=== PATIENT | female | born 1965 | race Caucasian/White ===

== ENCOUNTER 2021-01-04 09:57 | Inpatient (IN) | payer BC ==
[2021-01-04 10:41] LABS: #Lymphocytes 1.7 thou/uL (1.20-3.40); #Monocytes 0.9 thou/uL (0.11-0.59); #Neutrophils 16.7 thou/uL (1.40-6.50); %Basophils 0.2 % (0.0-1.0); %Eosinophils 0.1 % (0.0-10.0); %Monocytes 4.4 % (0.0-10.0); %Neutrophils 86.3 % (42.0-75.0); Hemoglobin 15.3 g/dL (12.0-16.0); Mean Corpuscular HGB CONC 32.8 g/dL (32.0-36.0); Mean Corpuscular Hemoglobin 28.8 pg (27.0-31.0); Mean Corpuscular Volume 87.9 fL (78.0-98.0); Mean Platelet Volume 8.7 fL (7.4-10.4); Platelet Count 365 thou/uL (130-400); RBC Distribution Width 12.6 % (11.5-14.5); Red Blood Cell (RBC) Count 5.32 mill/uL (4.20-5.40); White Blood Cell (WBC) Count 19.3 thou/uL (4.8-10.8)
[2021-01-04] MEDS ORDERED: Ketorolac Tromethamine 30 MG/ML VIAL ONE (10:51)
[2021-01-04] MEDS ORDERED: Ondansetron PF 4 MG/2 ML Vial ONE ×3 (10:51→16:14)
[2021-01-04 11:04] LABS: ALT (SGPT) 24 U/L (8-55); AST (SGOT) 21 U/L (5-34); Albumin 4.5 g/dL (3.5-5.0); Alkaline Phosphatase 65 U/L (40-110); Anion Gap 21 mmol/L (10-20); BUN (Urea Nitrogen) 29 mg/dL (9.8-20.1); Bilirubin, Total 1.1 mg/dL (0.2-1.2); Calc. Creatinine Clearance 0 mL/min (70-130); Carbon Dioxide 19 mmol/L (22-29); Chloride 97 mmol/L (98-107); Globulin 2.9 g/dL (2.4-3.5); Glucose 279 mg/dL (70-105); Potassium 3.3 mmol/L (3.5-5.1); Protein, Total 7.4 g/dL (6.0-8.3); Sodium 134 mmol/L (136-145)
[2021-01-04 12:31] LABS: Bacteria/HPF None Seen HPF (None Seen); Bilirubin Negative (Negative); Blood, Urine 1+ (Negative); Calcium Oxalate Crystals 2+ HPF (None Seen); Clarity Turbid (Clear); Glucose, Urine (Dipstick) 50 mg/dL (Negative); Ketone, Urine Negative (Negative); Leukocyte Negative Leu/uL (Negative); Nitrite Negative (Negative); Protein, Urine (Dipstick) 50 mg/dL (Neg-Trace); RBC/HPF 21-50 HPF (0-3); Specific Gravity, Urine 1.025 (1.002-1.036); Urobilinogen Normal mg/dL (Less than 2); WBC/HPF 21-50 HPF (0-3); pH, Urine 5.5 (5.0-9.0)
[2021-01-04] MEDS ORDERED: Piperacillin/Tazobactam 4.5 GM VIAL ONE (12:39)
[2021-01-04] MEDS ORDERED: Morphine 4 MG/ML VIAL ONE (12:39)
[2021-01-04 14:05] LABS: SARS-CoV-2 NAA Rapid Test Not Detected (NotDetected)
[2021-01-04] MEDS ORDERED: Fentanyl 100 MCG/2 ML VIAL ONE ×2 (14:52→18:40)
[2021-01-04] MEDS ORDERED: Albumin 5% 0 ML ONE (14:59)
[2021-01-04 15:28] LABS: Band 32 % (5-11); Hemoglobin 11.7 g/dL (12.0-16.0); Lymphocytes 8 % (21-51); MDiff Complete? YES; Mean Corpuscular HGB CONC 33.6 g/dL (32.0-36.0); Mean Corpuscular Hemoglobin 29.5 pg (27.0-31.0); Mean Corpuscular Volume 87.8 fL (78.0-98.0); Mean Platelet Volume 8.6 fL (7.4-10.4); Monocytes 9 % (0-10); Neutrophil 49 % (42-75); Platelet Count 263 thou/uL (130-400); Platelet Morphology Comment Appears Adequate; RBC Distribution Width 12.5 % (11.5-14.5); RBC Morphology Normal; Reactive Lymphocytes 2 % (0-10); Red Blood Cell (RBC) Count 3.98 mill/uL (4.20-5.40); White Blood Cell (WBC) Count 22.2 thou/uL (4.8-10.8)
[2021-01-04] MEDS ORDERED: Fentanyl 250 MCG/5 ML VIAL ONE (15:35)
[2021-01-04] MEDS ORDERED: Phenylephrine 10 MG/ML VIAL ONE (15:36)
[2021-01-04 15:39] LABS: Actual Bicarbonate (HCO3a) 20.2 mEq/L (22-28); Base Excess (BEa) -5.8 mEq/L (-2.0 to +3.0); CO2 Tension 41.4 mmHg (35.0-45.0); Calcium, Ionized (arterial) 1.07 mmol/L (1.12-1.30); Carboxyhemoglobin (COHb) 0.3 gm% (0.0-3.0); Hemoglobin (Hb) 10.5 g/dL (12.0-16.0); O2 Tension (PaO2), arterial 88.9 mmHg (80.0-100.0); pH, Arterial 7.31 (7.35-7.45)
[2021-01-04 15:40] LABS: Puncture Site LRA
[2021-01-04] MEDS ORDERED: Bupivacaine 0.25% HCL 30 ML VIAL ONE (16:00)
[2021-01-04] MEDS ORDERED: Sodium Chloride 0.9% 10 ML ONE ×2 (16:00→19:20)
[2021-01-04] MEDS ORDERED: Lidocaine 1% w/Epinephrine 1:100K 30 ML VIAL ONE (16:00)
[2021-01-04] MEDS ORDERED: Calcium Chloride 1 GM/10 ML Abboject SYRINGE ONE (16:14)
[2021-01-04] MEDS ORDERED: Rocuronium Bromide 10 MG/ML (10ML VIAL) ONE (16:14)
[2021-01-04] MEDS ORDERED: PHENYLEPHRINE-NS 100 MCG/ML 10 ML SYRINGE ONE (16:14)
[2021-01-04] MEDS ORDERED: Lidocaine 1% PF 5 ML VIAL ONE (16:14)
[2021-01-04] MEDS ORDERED: PROPOFOL 200 MG/20 ML VIAL ONE (16:14)
[2021-01-04] MEDS ORDERED: Succinylcholine 200 MG/10 ml SYRINGE FS ONE (16:14)
[2021-01-04] MEDS ORDERED: Dexamethasone 20 MG/5 ML VIAL ONE (16:14)
[2021-01-04] MEDS ORDERED: Sodium Bicarbonate 2.5 MEQ/5 ML VIAL ONE (16:47)
[2021-01-04] MEDS ORDERED: Albumin 5% 500 ML ONE (16:47)
[2021-01-04] MEDS ORDERED: Sodium Bicarb 50 MEQ/50 ML Abboject 8.4% SYRINGE ONE ×2 (16:50→17:13)
[2021-01-04] MEDS ORDERED: Midazolam HCl 2 mg/2 ml Vial ONE (17:32)
[2021-01-04] MEDS ORDERED: Propofol 1,000 MG/100 ML VIAL IV ONE (17:44)
[2021-01-04] MEDS ORDERED: Morphine 2 MG/ML VIAL SLOW IVP PRN ×2 (17:59→18:45)
[2021-01-04] MEDS ORDERED: Dextrose 5% in Water 1,000 ML IV PRN (17:59)
[2021-01-04] MEDS ORDERED: Morphine 4 MG/ML VIAL SLOW IVP PRN (17:59)
[2021-01-04] MEDS ORDERED: Dextrose 50% Abboject 50 ML SYRINGE SLOW IVP PRN (17:59)
[2021-01-04] MEDS ORDERED: Ventilator Sedation Protocol 1 EACH FS SCH (18:15)
[2021-01-04] MEDS ORDERED: Albumin 5% 250 ML ONE (18:39)
[2021-01-04] MEDS ORDERED: Fentanyl BOLUS 250 ML IVPB PRN (18:45)
[2021-01-04] MEDS ORDERED: Propofol BOLUS 1,000 MG/100 ML VIAL IV PRN (18:45)
[2021-01-04] MEDS ORDERED: Propofol 1,000 MG/100 ML VIAL IV PRN (18:45)
[2021-01-04] MEDS ORDERED: DISCONTINUE PREVIOUS NARCOTIC PAIN MEDICATIONS AND BENZODIAZEPINES FS SCH (18:45)
[2021-01-04] MEDS ORDERED: Sodium Chloride 0.9% 1,000 ML IV SCH (19:00)
[2021-01-04] MEDS ORDERED: Norepinephrine 8 MG/0.9% NS 250 ML IVPB SCH (19:00)
[2021-01-04] MEDS: Fentanyl CADD 100 ML IV SCH (19:18)
[2021-01-04 19:20] LABS: Mean Corpuscular Hemoglobin 30.2 pg (27.0-31.0); Mean Corpuscular Volume 88.6 fL (78.0-98.0); Mean Platelet Volume 8.7 fL (7.4-10.4); Platelet Count 190 thou/uL (130-400); RBC Distribution Width 12.6 % (11.5-14.5); Red Blood Cell (RBC) Count 2.97 mill/uL (4.20-5.40); White Blood Cell (WBC) Count 15.4 thou/uL (4.8-10.8)
[2021-01-04 19:36] LABS: Actual Bicarbonate (HCO3a) 18.9 mEq/L (22-28); Base Excess (BEa) -5.3 mEq/L (-2.0 to +3.0); CO2 Tension 32.6 mmHg (35.0-45.0); Calcium, Ionized (arterial) 1.09 mmol/L (1.12-1.30); Carboxyhemoglobin (COHb) 0.3 gm% (0.0-3.0); Hemoglobin (Hb) 10.7 g/dL (12.0-16.0); O2 Tension (PaO2), arterial 227.4 mmHg (80.0-100.0); Potassium - ABG Lab 3.98 mmol/L (3.70-5.30); pH, Arterial 7.38 (7.35-7.45)
[2021-01-04 19:42] LABS: Puncture Site Arterial Line
[2021-01-04 19:44] LABS: Band 51 % (5-11); Lymphocytes 10 % (21-51); MDiff Complete? YES; Metamyelocyte 2 % (0-0); Monocytes 3 % (0-10); Neutrophil 31 % (42-75); Platelet Morphology Comment Appears Adequate; Polychromasia SLIGHT = 2-3 cells (100X) (0-2/hpf); Reactive Lymphocytes 3 % (0-10)
[2021-01-04 19:50] LABS: Anion Gap 15 mmol/L (10-20); BUN (Urea Nitrogen) 23 mg/dL (9.8-20.1); Calc. Creatinine Clearance 81 mL/min (70-130); Calcium 7.7 mg/dL (7.8-10.44); Carbon Dioxide 18 mmol/L (22-29); Chloride 111 mmol/L (98-107); Glucose 136 mg/dL (70-105); Magnesium 1.2 mg/dL (1.6-2.6); Sodium 140 mmol/L (136-145)
[2021-01-04] MEDS: Lactated Ringer's 1,000 ML IV SCH ×2 (20:13→23:39)
[2021-01-04] MEDS ORDERED: Lorazepam 2 MG/ML VIAL ONE (20:48)
[2021-01-04] MEDS: Lorazepam 2 MG/ML VIAL SLOW IVP PRN (20:49)
[2021-01-04] MEDS: Piperacillin/Tazobactam 3.375 GM in Sodium Chloride 0.9% 100 ML IVPB SCH (21:56)
[2021-01-04] MEDS: Enoxaparin Sodium 40 MG/0.4 ML SYRINGE SC SCH (21:57)
[2021-01-04] MEDS: Albumin 25% 25 GM/100 ML BOT IVPB SCH (23:39)
[2021-01-04 23:48] LABS: Band 28 % (5-11); Lymphocytes 17 % (21-51); MDiff Complete? YES; Mean Corpuscular HGB CONC 35.2 g/dL (32.0-36.0); Mean Corpuscular Hemoglobin 31.3 pg (27.0-31.0); Mean Corpuscular Volume 88.7 fL (78.0-98.0); Mean Platelet Volume 8.8 fL (7.4-10.4); Monocytes 2 % (0-10); Neutrophil 45 % (42-75); Platelet Count 162 thou/uL (130-400); Platelet Morphology Comment Appears Adequate; RBC Distribution Width 13.1 % (11.5-14.5); RBC Morphology Normal; Reactive Lymphocytes 8 % (0-10); Red Blood Cell (RBC) Count 4.47 mill/uL (4.20-5.40); White Blood Cell (WBC) Count 16.6 thou/uL (4.8-10.8)
[2021-01-04] MEDS ORDERED: Albumin 25% 25 GM/100 ML BOT IVPB SCH (23:59)
[2021-01-05] MEDS ORDERED: Lorazepam 2 MG/ML VIAL ONE ×5 (01:36→18:33)
[2021-01-05] MEDS: Lorazepam 2 MG/ML VIAL SLOW IVP PRN ×6 (01:37→21:59)
[2021-01-05] MEDS ORDERED: Sodium Chloride 0.9% 30 ML ONE (03:18)
[2021-01-05] MEDS: Lactated Ringer's 1,000 ML IV SCH ×5 (03:30→23:04)
[2021-01-05] MEDS: Piperacillin/Tazobactam 3.375 GM in Sodium Chloride 0.9% 100 ML IVPB SCH ×3 (03:31→20:13)
[2021-01-05 03:48] LABS: Hemoglobin 13.1 g/dL (12.0-16.0); Mean Corpuscular HGB CONC 35.1 g/dL (32.0-36.0); Mean Corpuscular Volume 88.3 fL (78.0-98.0); Platelet Count 133 thou/uL (130-400); RBC Distribution Width 13.3 % (11.5-14.5); Red Blood Cell (RBC) Count 4.23 mill/uL (4.20-5.40); White Blood Cell (WBC) Count 13.9 thou/uL (4.8-10.8)
[2021-01-05 04:06] LABS: Band 32 % (5-11); Lymphocytes 24 % (21-51); MDiff Complete? YES; Neutrophil 41 % (42-75); Platelet Morphology Comment Appears Adequate; RBC Morphology Normal; Reactive Lymphocytes 3 % (0-10)
[2021-01-05 04:07] LABS: Anion Gap 11 mmol/L (10-20); BUN (Urea Nitrogen) 29 mg/dL (9.8-20.1); Calc. Creatinine Clearance 64 mL/min (70-130); Calcium 8.2 mg/dL (7.8-10.44); Carbon Dioxide 24 mmol/L (22-29); Chloride 109 mmol/L (98-107); Glucose 135 mg/dL (70-105); Magnesium 1.4 mg/dL (1.6-2.6); Potassium 4.2 mmol/L (3.5-5.1); Sodium 140 mmol/L (136-145)
[2021-01-05] MEDS: Albumin 25% 25 GM/100 ML BOT IVPB SCH ×3 (05:52→17:29)
[2021-01-05 06:50] LABS: Actual Bicarbonate (HCO3a) 21.6 mEq/L (22-28); Base Excess (BEa) -1.5 mEq/L (-2.0 to +3.0); CO2 Tension 31.4 mmHg (35.0-45.0); Calcium, Ionized (arterial) 1.08 mmol/L (1.12-1.30); Carboxyhemoglobin (COHb) 0.3 gm% (0.0-3.0); Hemoglobin (Hb) 12.9 g/dL (12.0-16.0); O2 Tension (PaO2), arterial 156.9 mmHg (80.0-100.0); Potassium - ABG Lab 4.02 mmol/L (3.70-5.30); pH, Arterial 7.46 (7.35-7.45)
[2021-01-05 06:51] LABS: Puncture Site Arterial Line
[2021-01-05] MEDS ORDERED: Magnesium Sulfate 3 GM in Sodium Chloride 0.9% 100 ML IVPB SCH (08:00)
[2021-01-05] MEDS: Fentanyl CADD 100 ML IV SCH ×2 (09:57→22:13)
[2021-01-05] MEDS ORDERED: Piperacillin/Tazobactam 3.375 GM VIAL ONE (11:44)
[2021-01-05] MEDS ORDERED: Sodium Chloride 0.9% 100 ML ONE (11:46)
[2021-01-05 16:25] LABS: Hemoglobin 11.7 g/dL (12.0-16.0); Mean Corpuscular HGB CONC 34.7 g/dL (32.0-36.0); Mean Corpuscular Hemoglobin 30.5 pg (27.0-31.0); Mean Corpuscular Volume 87.8 fL (78.0-98.0); Platelet Count 124 thou/uL (130-400); RBC Distribution Width 13.4 % (11.5-14.5); Red Blood Cell (RBC) Count 3.85 mill/uL (4.20-5.40); White Blood Cell (WBC) Count 7.9 thou/uL (4.8-10.8)
[2021-01-05 16:44] LABS: Anion Gap 12 mmol/L (10-20); BUN (Urea Nitrogen) 32 mg/dL (9.8-20.1); Calc. Creatinine Clearance 75 mL/min (70-130); Carbon Dioxide 22 mmol/L (22-29); Chloride 108 mmol/L (98-107); Glucose 125 mg/dL (70-105); Magnesium 2.2 mg/dL (1.6-2.6); Potassium 3.7 mmol/L (3.5-5.1); Sodium 138 mmol/L (136-145)
[2021-01-05 16:45] LABS: Band 58 % (5-11); Lymphocytes 24 % (21-51); MDiff Complete? YES; Metamyelocyte 2 % (0-0); Monocytes 7 % (0-10); Neutrophil 5 % (42-75); Platelet Morphology Comment Appears Decreased; Polychromasia SLIGHT = 2-3 cells (100X) (0-2/hpf); Reactive Lymphocytes 4 % (0-10)
[2021-01-05] MEDS: Enoxaparin Sodium 40 MG/0.4 ML SYRINGE SC SCH (20:15)
[2021-01-05] MEDS ORDERED: Fentanyl CADD 100 ML ONE (22:11)
[2021-01-05] MEDS ORDERED: Lactated Ringer's 1,000 ML IV SCH (23:00)
[2021-01-06] MEDS: Albumin 25% 25 GM/100 ML BOT IVPB SCH ×3 (00:37→17:22)
[2021-01-06] MEDS: Piperacillin/Tazobactam 3.375 GM in Sodium Chloride 0.9% 100 ML IVPB SCH ×3 (03:55→20:49)
[2021-01-06 04:39] LABS: Anion Gap 12 mmol/L (10-20); BUN (Urea Nitrogen) 26 mg/dL (9.8-20.1); Calc. Creatinine Clearance 84 mL/min (70-130); Carbon Dioxide 25 mmol/L (22-29); Chloride 108 mmol/L (98-107); Glucose 111 mg/dL (70-105); Magnesium 2.1 mg/dL (1.6-2.6); Potassium 3.9 mmol/L (3.5-5.1); Sodium 141 mmol/L (136-145)
[2021-01-06] MEDS: Lactated Ringer's 1,000 ML IV SCH ×3 (04:47→17:21)
[2021-01-06 05:02] LABS: Hemoglobin 9.8 g/dL (12.0-16.0); Mean Corpuscular HGB CONC 34.2 g/dL (32.0-36.0); Mean Corpuscular Hemoglobin 30.3 pg (27.0-31.0); Mean Corpuscular Volume 88.7 fL (78.0-98.0); Mean Platelet Volume 9.1 fL (7.4-10.4); Platelet Count 116 thou/uL (130-400); RBC Distribution Width 13.5 % (11.5-14.5); Red Blood Cell (RBC) Count 3.22 mill/uL (4.20-5.40)
[2021-01-06 06:29] LABS: Band 51 % (5-11); Eosinophils 1 % (0-10); Lymphocytes 25 % (21-51); MDiff Complete? YES; Metamyelocyte 15 % (0-0); Monocytes 5 % (0-10); Neutrophil 2 % (42-75); Platelet Morphology Comment Appears Decreased; Reactive Lymphocytes 1 % (0-10)
[2021-01-06] MEDS: Lorazepam 2 MG/ML VIAL SLOW IVP PRN ×5 (07:30→22:21)
[2021-01-06] MEDS ORDERED: Fentanyl CADD 100 ML ONE ×2 (10:05→22:05)
[2021-01-06] MEDS: Fentanyl CADD 100 ML IV SCH ×2 (10:20→22:23)
[2021-01-06] MEDS ORDERED: Propofol 500 MG/50 ML VIAL ONE (11:36)
[2021-01-06] MEDS ORDERED: Fentanyl 250 MCG/5 ML VIAL ONE (11:36)
[2021-01-06] MEDS ORDERED: Midazolam HCl 2 mg/2 ml Vial ONE (11:36)
[2021-01-06] MEDS ORDERED: PROPOFOL 200 MG/20 ML VIAL ONE (12:27)
[2021-01-06] MEDS ORDERED: Rocuronium Bromide 10 MG/ML (10ML VIAL) ONE (12:27)
[2021-01-06] MEDS ORDERED: PHENYLEPHRINE-NS 100 MCG/ML 10 ML SYRINGE ONE (12:27)
[2021-01-06] MEDS ORDERED: Dextrose 5% in Water 1,000 ML IV PRN (16:37)
[2021-01-06] MEDS ORDERED: Dextrose 50% Abboject 50 ML SYRINGE SLOW IVP PRN (16:37)
[2021-01-06] MEDS ORDERED: Furosemide 40 MG/4 ML VIAL SLOW IVP SCH (18:00)
[2021-01-06] MEDS: Enoxaparin Sodium 40 MG/0.4 ML SYRINGE SC SCH (20:49)
[2021-01-06] MEDS: HUMULIN R IV SCH (21:57)
[2021-01-06] MEDS: MULTIVITAMINS IV SCH (21:57)
[2021-01-06] MEDS: [UNRECOGNIZED DRUG - OTHER] IV SCH (21:57)
[2021-01-06] MEDS: TRACE ELEMENT IV SCH (21:57)
[2021-01-07] MEDS: Albumin 25% 25 GM/100 ML BOT IVPB SCH ×3 (00:14→11:47)
[2021-01-07] MEDS: Lorazepam 2 MG/ML VIAL SLOW IVP PRN ×2 (00:30→07:18)
[2021-01-07] MEDS: Lactated Ringer's 1,000 ML IV SCH ×4 (03:11→21:17)
[2021-01-07] MEDS: Piperacillin/Tazobactam 3.375 GM in Sodium Chloride 0.9% 100 ML IVPB SCH ×3 (04:11→19:39)
[2021-01-07 05:05] LABS: Hemoglobin 8.6 g/dL (12.0-16.0); Mean Corpuscular HGB CONC 33.6 g/dL (32.0-36.0); Mean Corpuscular Hemoglobin 30.2 pg (27.0-31.0); Mean Platelet Volume 9.1 fL (7.4-10.4); Platelet Count 146 thou/uL (130-400); RBC Distribution Width 13.6 % (11.5-14.5); Red Blood Cell (RBC) Count 2.86 mill/uL (4.20-5.40); White Blood Cell (WBC) Count 6.6 thou/uL (4.8-10.8)
[2021-01-07 05:17] LABS: Anion Gap 10 mmol/L (10-20); BUN (Urea Nitrogen) 29 mg/dL (9.8-20.1); Calc. Creatinine Clearance 77 mL/min (70-130); Carbon Dioxide 31 mmol/L (22-29); Chloride 105 mmol/L (98-107); Glucose 148 mg/dL (70-105); Potassium 3.5 mmol/L (3.5-5.1); Sodium 142 mmol/L (136-145)
[2021-01-07 05:28] LABS: Band 45 % (5-11); Eosinophils 1 % (0-10); Lymphocytes 30 % (21-51); MDiff Complete? YES; Monocytes 13 % (0-10); Neutrophil 11 % (42-75); Platelet Morphology Comment Appears Adequate; RBC Morphology Normal
[2021-01-07] MEDS: Furosemide 40 MG/4 ML VIAL SLOW IVP SCH ×2 (06:00→13:36)
[2021-01-07] MEDS ORDERED: Fentanyl CADD 100 ML ONE ×2 (10:16→21:59)
[2021-01-07] MEDS: Fentanyl CADD 100 ML IV SCH ×2 (10:19→22:02)
[2021-01-07] MEDS: HumaLOG 300 UNITS/3 ML VIAL SC PRN ×2 (13:13→17:54)
[2021-01-07 18:39] LABS: Anion Gap 13 mmol/L (10-20); BUN (Urea Nitrogen) 36 mg/dL (9.8-20.1); Calc. Creatinine Clearance 82 mL/min (70-130); Calcium 8.1 mg/dL (7.8-10.44); Carbon Dioxide 30 mmol/L (22-29); Chloride 103 mmol/L (98-107); Glucose 160 mg/dL (70-105); Sodium 143 mmol/L (136-145)
[2021-01-07 18:44] LABS: Potassium 2.8 mmol/L (3.5-5.1)
[2021-01-07] MEDS ORDERED: Potassium Chloride 40 MEQ in Premix Bag 1 BAG IVPB SCH ×2 (19:15→22:00)
[2021-01-07] MEDS ORDERED: Potassium Chloride 20 MEQ in Premix Bag 1 BAG IVPB SCH (19:15)
[2021-01-07] MEDS: Potassium Chloride 40 MEQ in Premix Bag 1 BAG IVPB SCH ×2 (19:39→22:17)
[2021-01-07] MEDS: Enoxaparin Sodium 40 MG/0.4 ML SYRINGE SC SCH (20:55)
[2021-01-07] MEDS ORDERED: Furosemide 40 MG/4 ML VIAL SLOW IVP SCH (22:00)
[2021-01-07] MEDS: HUMULIN R IV SCH (22:16)
[2021-01-07] MEDS: TRACE ELEMENT IV SCH (22:16)
[2021-01-07] MEDS: [UNRECOGNIZED DRUG - OTHER] IV SCH (22:16)
[2021-01-07] MEDS: MULTIVITAMINS IV SCH (22:16)
[2021-01-08] MEDS: Piperacillin/Tazobactam 3.375 GM in Sodium Chloride 0.9% 100 ML IVPB SCH ×3 (04:20→21:36)
[2021-01-08] MEDS: Lactated Ringer's 1,000 ML IV SCH ×4 (04:20→22:55)
[2021-01-08] MEDS: HumaLOG 300 UNITS/3 ML VIAL SC PRN ×3 (04:26→21:48)
[2021-01-08 04:59] LABS: Hemoglobin 9.3 g/dL (12.0-16.0); Mean Corpuscular HGB CONC 32.4 g/dL (32.0-36.0); Mean Corpuscular Hemoglobin 29.5 pg (27.0-31.0); Mean Corpuscular Volume 90.9 fL (78.0-98.0); Mean Platelet Volume 8.4 fL (7.4-10.4); Platelet Count 174 thou/uL (130-400); RBC Distribution Width 13.9 % (11.5-14.5); Red Blood Cell (RBC) Count 3.15 mill/uL (4.20-5.40); White Blood Cell (WBC) Count 7.3 thou/uL (4.8-10.8)
[2021-01-08 05:13] LABS: ALT (SGPT) 22 U/L (8-55); AST (SGOT) 34 U/L (5-34); Albumin 3.1 g/dL (3.5-5.0); Alkaline Phosphatase 36 U/L (40-110); Anion Gap 12 mmol/L (10-20); BUN (Urea Nitrogen) 41 mg/dL (9.8-20.1); Bilirubin, Total 5.5 mg/dL (0.2-1.2); Calc. Creatinine Clearance 84 mL/min (70-130); Calcium 8.1 mg/dL (7.8-10.44); Carbon Dioxide 31 mmol/L (22-29); Chloride 105 mmol/L (98-107); Globulin 1.2 g/dL (2.4-3.5); Glucose 168 mg/dL (70-105); Potassium 3.7 mmol/L (3.5-5.1); Protein, Total 4.3 g/dL (6.0-8.3); Sodium 144 mmol/L (136-145)
[2021-01-08 05:33] LABS: Phosphorus 1.2 mg/dL (2.3-4.7)
[2021-01-08 06:17] LABS: MDiff Complete? YES
[2021-01-08 06:18] LABS: Band 21 % (5-11); Eosinophils 3 % (0-10); Lymphocytes 17 % (21-51); Metamyelocyte 6 % (0-0); Monocytes 5 % (0-10); Neutrophil 48 % (42-75); Platelet Morphology Comment Appears Adequate; RBC Morphology Normal
[2021-01-08] MEDS: Furosemide 40 MG/4 ML VIAL SLOW IVP SCH ×2 (06:22→20:20)
[2021-01-08] MEDS ORDERED: Fentanyl CADD 100 ML ONE ×2 (08:55→22:17)
[2021-01-08] MEDS: Fentanyl CADD 100 ML IV SCH ×2 (09:00→22:20)
[2021-01-08] MEDS: Lorazepam 2 MG/ML VIAL SLOW IVP PRN (09:16)
[2021-01-08] MEDS ORDERED: Midazolam HCl 2 mg/2 ml Vial ONE (17:05)
[2021-01-08] MEDS ORDERED: Fentanyl 100 MCG/2 ML VIAL ONE (17:05)
[2021-01-08] MEDS ORDERED: Neomycin-Polymyxin 1 ML AMP ONE (17:27)
[2021-01-08] MEDS ORDERED: PHENYLEPHRINE-NS 100 MCG/ML 10 ML SYRINGE ONE (17:30)
[2021-01-08] MEDS ORDERED: PROPOFOL 200 MG/20 ML VIAL ONE (17:30)
[2021-01-08] MEDS ORDERED: Rocuronium Bromide 10 MG/ML (10ML VIAL) ONE (17:30)
[2021-01-08] MEDS: Enoxaparin Sodium 40 MG/0.4 ML SYRINGE SC SCH (21:36)
[2021-01-08] MEDS: TRACE ELEMENT IV SCH (22:32)
[2021-01-08] MEDS: MULTIVITAMINS IV SCH (22:32)
[2021-01-08] MEDS: HUMULIN R IV SCH (22:32)
[2021-01-08] MEDS: [UNRECOGNIZED DRUG - OTHER] IV SCH (22:32)
[2021-01-09] MEDS: Piperacillin/Tazobactam 3.375 GM in Sodium Chloride 0.9% 100 ML IVPB SCH ×3 (07:24→21:08)
[2021-01-09] MEDS: Lactated Ringer's 1,000 ML IV SCH ×3 (07:24→19:17)
[2021-01-09] MEDS: Furosemide 40 MG/4 ML VIAL SLOW IVP SCH ×2 (07:25→13:54)
[2021-01-09 07:54] LABS: Actual Bicarbonate (HCO3a) 29.7 mEq/L (22-28); Base Excess (BEa) 6.6 mEq/L (-2.0 to +3.0); Calcium, Ionized (arterial) 1.02 mmol/L (1.12-1.30); Carboxyhemoglobin (COHb) 0.3 gm% (0.0-3.0); Hemoglobin (Hb) 10.1 g/dL (12.0-16.0); O2 Tension (PaO2), arterial 117.4 mmHg (80.0-100.0); Potassium - ABG Lab 3.32 mmol/L (3.70-5.30); pH, Arterial 7.52 (7.35-7.45)
[2021-01-09 07:59] LABS: Puncture Site Arterial Line
[2021-01-09] MEDS ORDERED: Fentanyl CADD 100 ML ONE (10:23)
[2021-01-09] MEDS: Fentanyl CADD 100 ML IV SCH (10:28)
[2021-01-09] MEDS ORDERED: Piperacillin/Tazobactam 3.375 GM VIAL ONE (10:37)
[2021-01-09] MEDS: Lorazepam 2 MG/ML VIAL SLOW IVP PRN ×2 (11:00→17:23)
[2021-01-09 15:51] LABS: Hemoglobin 10.2 g/dL (12.0-16.0); Mean Corpuscular HGB CONC 33.2 g/dL (32.0-36.0); Mean Corpuscular Hemoglobin 30.2 pg (27.0-31.0); Mean Platelet Volume 9.5 fL (7.4-10.4); Platelet Count 214 thou/uL (130-400); RBC Distribution Width 14.3 % (11.5-14.5); Red Blood Cell (RBC) Count 3.38 mill/uL (4.20-5.40); White Blood Cell (WBC) Count 14.2 thou/uL (4.8-10.8)
[2021-01-09 16:09] LABS: Band 46 % (5-11); Eosinophils 1 % (0-10); Lymphocytes 14 % (21-51); MDiff Complete? YES; Metamyelocyte 3 % (0-0); Monocytes 9 % (0-10); Myelocyte 5 % (0-0); Neutrophil 20 % (42-75); Platelet Morphology Comment Appears Adequate; Polychromasia SLIGHT = 2-3 cells (100X) (0-2/hpf); Reactive Lymphocytes 2 % (0-10)
[2021-01-09 16:31] LABS: ALT (SGPT) 32 U/L (8-55); AST (SGOT) 38 U/L (5-34); Albumin 2.6 g/dL (3.5-5.0); Alkaline Phosphatase 51 U/L (40-110); Anion Gap 13 mmol/L (10-20); BUN (Urea Nitrogen) 55 mg/dL (9.8-20.1); Bilirubin, Total 3.6 mg/dL (0.2-1.2); Calc. Creatinine Clearance 66 mL/min (70-130); Calcium 7.8 mg/dL (7.8-10.44); Carbon Dioxide 31 mmol/L (22-29); Chloride 99 mmol/L (98-107); Globulin 1.6 g/dL (2.4-3.5); Glucose 158 mg/dL (70-105); Magnesium 1.8 mg/dL (1.6-2.6); Potassium 3.3 mmol/L (3.5-5.1); Protein, Total 4.2 g/dL (6.0-8.3); Sodium 140 mmol/L (136-145)
[2021-01-09 17:04] LABS: Phosphorus 3.1 mg/dL (2.3-4.7)
[2021-01-09] MEDS: Enoxaparin Sodium 40 MG/0.4 ML SYRINGE SC SCH (21:20)
[2021-01-09] MEDS: Multivitamins, Adult 10 ML, TRACE ELEMENT CONCENTRATE 1 ML in D15W-AA 5% with Lytes 2,0... IV SCH (21:59)
[2021-01-10] MEDS: Lactated Ringer's 1,000 ML IV SCH ×4 (01:04→20:38)
[2021-01-10] MEDS: Piperacillin/Tazobactam 3.375 GM in Sodium Chloride 0.9% 100 ML IVPB SCH ×3 (03:09→20:52)
[2021-01-10 04:18] LABS: ALT (SGPT) 33 U/L (8-55); AST (SGOT) 43 U/L (5-34); Albumin 2.4 g/dL (3.5-5.0); Alkaline Phosphatase 54 U/L (40-110); Anion Gap 14 mmol/L (10-20); BUN (Urea Nitrogen) 56 mg/dL (9.8-20.1); Bilirubin, Total 3.6 mg/dL (0.2-1.2); Calc. Creatinine Clearance 78 mL/min (70-130); Calcium 7.7 mg/dL (7.8-10.44); Carbon Dioxide 29 mmol/L (22-29); Chloride 100 mmol/L (98-107); Globulin 1.9 g/dL (2.4-3.5); Glucose 159 mg/dL (70-105); Magnesium 1.9 mg/dL (1.6-2.6); Phosphorus 3.4 mg/dL (2.3-4.7); Potassium 3.6 mmol/L (3.5-5.1); Protein, Total 4.3 g/dL (6.0-8.3); Sodium 139 mmol/L (136-145)
[2021-01-10] MEDS: Furosemide 40 MG/4 ML VIAL SLOW IVP SCH ×2 (04:59→13:45)
[2021-01-10 05:26] LABS: Band 40 % (5-11); Hemoglobin 9.9 g/dL (12.0-16.0); Lymphocytes 12 % (21-51); MDiff Complete? YES; Mean Corpuscular HGB CONC 34.5 g/dL (32.0-36.0); Mean Corpuscular Hemoglobin 31.2 pg (27.0-31.0); Mean Corpuscular Volume 90.4 fL (78.0-98.0); Mean Platelet Volume 9.8 fL (7.4-10.4); Metamyelocyte 5 % (0-0); Monocytes 8 % (0-10); Myelocyte 3 % (0-0); Neutrophil 30 % (42-75); Platelet Count 207 thou/uL (130-400); Platelet Morphology Comment Appears Adequate; Polychromasia SLIGHT = 2-3 cells (100X) (0-2/hpf); RBC Distribution Width 14.3 % (11.5-14.5); Reactive Lymphocytes 2 % (0-10); Red Blood Cell (RBC) Count 3.17 mill/uL (4.20-5.40); Toxic Granulation SLIGHT; White Blood Cell (WBC) Count 15.3 thou/uL (4.8-10.8)
[2021-01-10 07:57] LABS: Actual Bicarbonate (HCO3a) 31.7 mEq/L (22-28); Base Excess (BEa) 9.2 mEq/L (-2.0 to +3.0); CO2 Tension 35.5 mmHg (35.0-45.0); Calcium, Ionized (arterial) 1.02 mmol/L (1.12-1.30); Carboxyhemoglobin (COHb) 0.3 gm% (0.0-3.0); Hemoglobin (Hb) 10.4 g/dL (12.0-16.0); O2 Tension (PaO2), arterial 105.7 mmHg (80.0-100.0); Potassium - ABG Lab 3.18 mmol/L (3.70-5.30)
[2021-01-10 08:11] LABS: Puncture Site Arterial Line; pH, Arterial 7.57 (7.35-7.45)
[2021-01-10 08:12] LABS: ALV-art Gradient 135.125 mmHg (0-20)
[2021-01-10] MEDS: HumaLOG 300 UNITS/3 ML VIAL SC PRN ×2 (09:27→16:04)
[2021-01-10] MEDS: Lorazepam 2 MG/ML VIAL SLOW IVP PRN (11:00)
[2021-01-10] MEDS: Enoxaparin Sodium 40 MG/0.4 ML SYRINGE SC SCH (20:52)
[2021-01-10] MEDS: Multivitamins, Adult 10 ML, TRACE ELEMENT CONCENTRATE 1 ML in D15W-AA 5% with Lytes 2,0... IV SCH (21:53)
[2021-01-11] MEDS: Lactated Ringer's 1,000 ML IV SCH ×3 (03:20→19:12)
[2021-01-11 04:20] LABS: ALT (SGPT) 45 U/L (8-55); AST (SGOT) 42 U/L (5-34); Albumin 2.7 g/dL (3.5-5.0); Alkaline Phosphatase 71 U/L (40-110); Anion Gap 13 mmol/L (10-20); BUN (Urea Nitrogen) 60 mg/dL (9.8-20.1); Bilirubin, Total 4.8 mg/dL (0.2-1.2); Calc. Creatinine Clearance 71 mL/min (70-130); Calcium 8.1 mg/dL (7.8-10.44); Carbon Dioxide 35 mmol/L (22-29); Chloride 97 mmol/L (98-107); Globulin 1.8 g/dL (2.4-3.5); Glucose 173 mg/dL (70-105); Magnesium 2.1 mg/dL (1.6-2.6); Phosphorus 3.3 mg/dL (2.3-4.7); Protein, Total 4.5 g/dL (6.0-8.3); Sodium 142 mmol/L (136-145)
[2021-01-11 04:35] LABS: Band 43 % (5-11); Hemoglobin 10.4 g/dL (12.0-16.0); Hypochromia SLIGHT = 6-15 cells (100X) (0-5/hpf); Lymphocytes 15 % (21-51); MDiff Complete? YES; Mean Corpuscular Hemoglobin 30.8 pg (27.0-31.0); Mean Corpuscular Volume 90.5 fL (78.0-98.0); Metamyelocyte 2 % (0-0); Monocytes 9 % (0-10); Neutrophil 31 % (42-75); Platelet Count 273 thou/uL (130-400); Platelet Morphology Comment Appears Adequate; RBC Distribution Width 14.1 % (11.5-14.5); Red Blood Cell (RBC) Count 3.38 mill/uL (4.20-5.40); White Blood Cell (WBC) Count 14.9 thou/uL (4.8-10.8)
[2021-01-11] MEDS: Furosemide 40 MG/4 ML VIAL SLOW IVP SCH (06:00)
[2021-01-11] MEDS: Piperacillin/Tazobactam 3.375 GM in Sodium Chloride 0.9% 100 ML IVPB SCH ×3 (06:00→20:22)
[2021-01-11] MEDS ORDERED: Sodium Chloride 0.9% 500 ML IV SCH (08:45)
[2021-01-11] MEDS: Potassium Chloride 40 MEQ in Premix Bag 1 BAG IVPB SCH ×2 (11:08→15:47)
[2021-01-11] MEDS ORDERED: Fentanyl 100 MCG/2 ML VIAL SLOW IVP SCH (11:30)
[2021-01-11] MEDS ORDERED: Fentanyl 100 MCG/2 ML VIAL SLOW IVP PRN (11:42)
[2021-01-11] MEDS ORDERED: Metoprolol Tartrate 5 MG/5 ML VIAL IVP SCH (17:01)
[2021-01-11] MEDS: Melatonin 3 MG TAB PO PRN (20:23)
[2021-01-11] MEDS: Enoxaparin Sodium 40 MG/0.4 ML SYRINGE SC SCH (20:23)
[2021-01-11] MEDS ORDERED: [UNRECOGNIZED DRUG - OTHER] IV SCH (22:00)
[2021-01-11] MEDS ORDERED: TRACE ELEMENT IV SCH (22:00)
[2021-01-11] MEDS ORDERED: FAT EMULSION IV SCH (22:00)
[2021-01-11] MEDS ORDERED: MULTIVITAMINS IV SCH (22:00)
[2021-01-12] MEDS: Piperacillin/Tazobactam 3.375 GM in Sodium Chloride 0.9% 100 ML IVPB SCH ×3 (03:28→20:20)
[2021-01-12] MEDS: HumaLOG 300 UNITS/3 ML VIAL SC PRN (03:41)
[2021-01-12 04:24] LABS: ALT (SGPT) 54 U/L (8-55); AST (SGOT) 49 U/L (5-34); Albumin 2.9 g/dL (3.5-5.0); Alkaline Phosphatase 86 U/L (40-110); BUN (Urea Nitrogen) 58 mg/dL (9.8-20.1); Bilirubin, Total 5.1 mg/dL (0.2-1.2); Calc. Creatinine Clearance 67 mL/min (70-130); Calcium 8.1 mg/dL (7.8-10.44); Chloride 96 mmol/L (98-107); Globulin 1.9 g/dL (2.4-3.5); Glucose 170 mg/dL (70-105); Magnesium 2.5 mg/dL (1.6-2.6); Potassium 3.2 mmol/L (3.5-5.1); Protein, Total 4.8 g/dL (6.0-8.3); Sodium 150 mmol/L (136-145)
[2021-01-12 04:46] LABS: Anion Gap 20 mmol/L (10-20); Carbon Dioxide 37 mmol/L (22-29)
[2021-01-12 05:09] LABS: Band 34 % (5-11); Hemoglobin 9.6 g/dL (12.0-16.0); Lymphocytes 12 % (21-51); MDiff Complete? YES; Mean Corpuscular HGB CONC 32.3 g/dL (32.0-36.0); Mean Corpuscular Hemoglobin 29.3 pg (27.0-31.0); Mean Corpuscular Volume 90.6 fL (78.0-98.0); Mean Platelet Volume 9.9 fL (7.4-10.4); Metamyelocyte 11 % (0-0); Monocytes 5 % (0-10); Myelocyte 5 % (0-0); Neutrophil 32 % (42-75); Platelet Count 355 thou/uL (130-400); Polychromasia SLIGHT = 2-3 cells (100X) (0-2/hpf); RBC Distribution Width 14.2 % (11.5-14.5); Reactive Lymphocytes 1 % (0-10); Red Blood Cell (RBC) Count 3.26 mill/uL (4.20-5.40); Toxic Granulation SLIGHT; White Blood Cell (WBC) Count 10.7 thou/uL (4.8-10.8)
[2021-01-12 08:58] LABS: SARS-CoV-2 PCR by NAA Not Detected (NotDetected)
[2021-01-12] MEDS ORDERED: Dextrose 5% in Water 1,000 ML IV SCH (11:15)
[2021-01-12] MEDS: Dextrose 5% in Water 1,000 ML IV SCH (12:38)
[2021-01-12 15:01] LABS: Actual Bicarbonate (HCO3a) 23.1 mEq/L (22-28); Analyzer IN Cardio OR; Base Excess (BEa) -0.1 mEq/L (-2.0 to +3.0); CO2 Tension 31.3 mmHg (35.0-45.0); Calcium, Ionized (arterial) 1.14 mmol/L (1.12-1.30); Carboxyhemoglobin (COHb) 0.6 gm% (0.0-3.0); O2 Tension (PaO2), arterial 387.5 mmHg (80.0-100.0); Potassium - ABG Lab 3.47 mmol/L (3.70-5.30); Puncture Site Arterial Line; pH, Arterial 7.49 (7.35-7.45)
[2021-01-12] MEDS: Enoxaparin Sodium 40 MG/0.4 ML SYRINGE SC SCH (20:20)
[2021-01-12] MEDS ORDERED: Lorazepam 2 MG/ML VIAL SLOW IVP SCH (21:45)
[2021-01-12] MEDS ORDERED: [UNRECOGNIZED DRUG - OTHER] IV SCH (22:00)
[2021-01-12] MEDS ORDERED: POTASSIUM PHOSPHATE IV SCH (22:00)
[2021-01-12] MEDS ORDERED: POTASSIUM CHLORIDE IV SCH (22:00)
[2021-01-12] MEDS ORDERED: CALCIUM GLUCONATE IV SCH (22:00)
[2021-01-12] MEDS ORDERED: Multivitamins, Adult 10 ML, TRACE ELEMENT CONCENTRATE 1 ML in D15W-AA 5% w/o Lytes 2,00... IV SCH (22:00)
[2021-01-13] MEDS ORDERED: Lorazepam 2 MG/ML VIAL SLOW IVP SCH (00:45)
[2021-01-13] MEDS: Piperacillin/Tazobactam 3.375 GM in Sodium Chloride 0.9% 100 ML IVPB SCH ×3 (04:03→20:40)
[2021-01-13 04:37] LABS: BUN (Urea Nitrogen) 59 mg/dL (9.8-20.1); Calc. Creatinine Clearance 49 mL/min (70-130); Calcium 8.2 mg/dL (7.8-10.44); Glucose 156 mg/dL (70-105)
[2021-01-13 04:44] LABS: Chloride 84 mmol/L (98-107); Potassium 2.8 mmol/L (3.5-5.1); Sodium 144 mmol/L (136-145)
[2021-01-13 04:45] LABS: Band 15 % (5-11); Hypochromia SLIGHT = 6-15 cells (100X) (0-5/hpf); Lymphocytes 24 % (21-51); MDiff Complete? YES; Mean Corpuscular HGB CONC 32.1 g/dL (32.0-36.0); Mean Corpuscular Hemoglobin 29.5 pg (27.0-31.0); Mean Corpuscular Volume 91.8 fL (78.0-98.0); Mean Platelet Volume 10.2 fL (7.4-10.4); Monocytes 6 % (0-10); Neutrophil 55 % (42-75); Platelet Count 396 thou/uL (130-400); Platelet Morphology Comment Appears Adequate; RBC Distribution Width 14.4 % (11.5-14.5); White Blood Cell (WBC) Count 13.6 thou/uL (4.8-10.8)
[2021-01-13 05:00] LABS: Anion Gap 21 mmol/L (10-20)
[2021-01-13 05:02] LABS: Carbon Dioxide 42 mmol/L (22-29)
[2021-01-13] MEDS: Dextrose 5% in Water 1,000 ML IV SCH (08:00)
[2021-01-13] MEDS ORDERED: acetaZOLAMIDE Sodium 500 mg Vial IVP SCH (10:15)
[2021-01-13] MEDS ORDERED: Sterile Water 10 ML VIAL IVP SCH (10:30)
[2021-01-13] MEDS ORDERED: Potassium Chloride 40 MEQ in Premix Bag 1 BAG IVPB SCH (11:30)
[2021-01-13] MEDS: HumaLOG 300 UNITS/3 ML VIAL SC PRN (11:34)
[2021-01-13] MEDS ORDERED: Albumin 5% 0 ML ONE ×2 (16:53→16:55)
[2021-01-13] MEDS ORDERED: Lactated Ringer's 1,000 ML IV SCH ×2 (17:00→23:45)
[2021-01-13] MEDS ORDERED: Albumin 25% 25 GM/100 ML BOT IVPB SCH ×2 (17:00→23:59)
[2021-01-13] MEDS: Albumin 25% 25 GM/100 ML BOT IVPB SCH ×2 (17:03→22:07)
[2021-01-13] MEDS ORDERED: Sodium Chloride 0.9% (PF) 10 ML VIAL FS PRN (17:30)
[2021-01-13] MEDS ORDERED: [UNRECOGNIZED DRUG - OTHER] IV SCH ×3 (17:47→22:00)
[2021-01-13] MEDS ORDERED: SODIUM CHLORIDE IV SCH ×3 (17:47→22:00)
[2021-01-13] MEDS ORDERED: SODIUM ACETATE IV SCH ×3 (17:47→22:00)
[2021-01-13] MEDS ORDERED: FAT EMULSION IV SCH ×5 (17:47→22:00)
[2021-01-13] MEDS: Pantoprazole 40 MG VIAL IVP SCH (20:40)
[2021-01-13] MEDS: Enoxaparin Sodium 40 MG/0.4 ML SYRINGE SC SCH (20:40)
[2021-01-13] MEDS ORDERED: POTASSIUM CHLORIDE IV SCH ×2 (22:00)
[2021-01-13] MEDS ORDERED: POTASSIUM PHOSPHATE IV SCH ×2 (22:00)
[2021-01-13] MEDS ORDERED: [UNRECOGNIZED DRUG - OTHER] IV SCH ×2 (22:00)
[2021-01-13] MEDS ORDERED: Lactated Ringer's 500 ML IV SCH (22:30)
[2021-01-13] MEDS: Lactated Ringer's 1,000 ML IV SCH (22:46)
[2021-01-13 22:55] LABS: CO2 Tension 38.8 mmHg (35.0-45.0)
[2021-01-13 22:56] LABS: Base Excess (BEa) 15.3 mEq/L (-2.0 to +3.0); Calcium, Ionized (arterial) 0.91 mmol/L (1.12-1.30); Carboxyhemoglobin (COHb) 0.5 gm% (0.0-3.0); Hemoglobin (Hb) 7.9 g/dL (12.0-16.0); Potassium - ABG Lab 3.31 mmol/L (3.70-5.30)
[2021-01-13 22:58] LABS: O2 Tension (PaO2), arterial 54.9 mmHg (80.0-100.0); Puncture Site RRA; pH, Arterial 7.61 (7.35-7.45)
[2021-01-13] MEDS: Norepinephrine 8 MG/0.9% NS 250 ML IVPB SCH (23:24)
[2021-01-14] MEDS: Piperacillin/Tazobactam 3.375 GM in Sodium Chloride 0.9% 100 ML IVPB SCH ×2 (04:16→16:20)
[2021-01-14] MEDS: Albumin 25% 25 GM/100 ML BOT IVPB SCH ×3 (04:16→16:21)
[2021-01-14 05:01] LABS: Band 37 % (5-11); Eosinophils 1 % (0-10); Hemoglobin 9.9 g/dL (12.0-16.0); Hypochromia SLIGHT = 6-15 cells (100X) (0-5/hpf); Lymphocytes 24 % (21-51); MDiff Complete? YES; Mean Corpuscular HGB CONC 33.2 g/dL (32.0-36.0); Mean Corpuscular Hemoglobin 29.2 pg (27.0-31.0); Mean Corpuscular Volume 88.2 fL (78.0-98.0); Mean Platelet Volume 10.6 fL (7.4-10.4); Monocytes 5 % (0-10); Neutrophil 32 % (42-75); Platelet Count 329 thou/uL (130-400); Platelet Morphology Comment Appears Adequate; RBC Distribution Width 14.1 % (11.5-14.5); Reactive Lymphocytes 1 % (0-10); White Blood Cell (WBC) Count 17.1 thou/uL (4.8-10.8)
[2021-01-14 05:16] LABS: Chloride 84 mmol/L (98-107); Potassium 3.2 mmol/L (3.5-5.1); Sodium 139 mmol/L (136-145)
[2021-01-14 05:45] LABS: Carbon Dioxide 36 mmol/L (22-29)
[2021-01-14 05:48] LABS: BUN (Urea Nitrogen) 109 mg/dL (9.8-20.1); Calc. Creatinine Clearance 18 mL/min (70-130); Glucose 121 mg/dL (70-105)
[2021-01-14 05:50] LABS: Anion Gap 22 mmol/L (10-20)
[2021-01-14 07:19] LABS: Phosphorus 3.7 mg/dL (2.3-4.7)
[2021-01-14 07:22] LABS: Magnesium 2.5 mg/dL (1.6-2.6)
[2021-01-14] MEDS: Pantoprazole 40 MG VIAL IVP SCH ×2 (08:19→20:08)
[2021-01-14] MEDS: Lactated Ringer's 1,000 ML IV SCH ×2 (10:31→23:27)
[2021-01-14] MEDS ORDERED: Potassium Chloride 40 MEQ in Premix Bag 1 BAG IVPB SCH ×2 (11:15→19:00)
[2021-01-14] MEDS: HumaLOG 300 UNITS/3 ML VIAL SC PRN (16:30)
[2021-01-14 17:30] LABS: Anion Gap 21 mmol/L (10-20); BUN (Urea Nitrogen) 121 mg/dL (9.8-20.1); Calc. Creatinine Clearance 19 mL/min (70-130); Calcium 8.2 mg/dL (7.8-10.44); Carbon Dioxide 32 mmol/L (22-29); Chloride 91 mmol/L (98-107); Glucose 136 mg/dL (70-105); Potassium 3.5 mmol/L (3.5-5.1); Sodium 140 mmol/L (136-145)
[2021-01-14 17:52] LABS: Band 63 % (5-11); Eosinophils 1 % (0-10); Hemoglobin 10.5 g/dL (12.0-16.0); Lymphocytes 18 % (21-51); MDiff Complete? YES; Mean Corpuscular HGB CONC 34.3 g/dL (32.0-36.0); Mean Corpuscular Hemoglobin 30.1 pg (27.0-31.0); Mean Corpuscular Volume 87.7 fL (78.0-98.0); Mean Platelet Volume 10.6 fL (7.4-10.4); Metamyelocyte 2 % (0-0); Monocytes 4 % (0-10); Myelocyte 1 % (0-0); Neutrophil 5 % (42-75); Nucleated RBC 5 % (0); Platelet Count 341 thou/uL (130-400); Platelet Morphology Comment Appears Adequate; Polychromasia MODERATE = 3-4 cells (100X) (0-2/hpf); RBC Distribution Width 14.5 % (11.5-14.5); Reactive Lymphocytes 6 % (0-10); Red Blood Cell (RBC) Count 3.49 mill/uL (4.20-5.40); Target Cells SLIGHT = 2-5 cells (100X) (0-1/hpf); White Blood Cell (WBC) Count 15.5 thou/uL (4.8-10.8)
[2021-01-14] MEDS: Enoxaparin Sodium 30 MG/0.3 ML SYRINGE SC SCH (20:09)
[2021-01-14] MEDS ORDERED: POTASSIUM ACETATE IV SCH (22:00)
[2021-01-14] MEDS ORDERED: [UNRECOGNIZED DRUG - OTHER] IV SCH (22:00)
[2021-01-14] MEDS ORDERED: SODIUM ACETATE IV SCH (22:00)
[2021-01-14] MEDS ORDERED: SODIUM CHLORIDE IV SCH (22:00)
[2021-01-15] MEDS: Piperacillin/Tazobactam 3.375 GM in Sodium Chloride 0.9% 100 ML IVPB SCH (04:07)
[2021-01-15] MEDS: HumaLOG 300 UNITS/3 ML VIAL SC PRN ×4 (04:36→22:19)
[2021-01-15 05:44] LABS: Magnesium 3.1 mg/dL (1.6-2.6); Phosphorus 2.7 mg/dL (2.3-4.7)
[2021-01-15] MEDS ORDERED: Sodium Chloride 0.9% 1,000 ML IV SCH (09:00)
[2021-01-15 09:05] LABS: Hemoglobin 10.1 g/dL (12.0-16.0); Mean Corpuscular HGB CONC 33.5 g/dL (32.0-36.0); Mean Corpuscular Hemoglobin 29.7 pg (27.0-31.0); Mean Corpuscular Volume 88.7 fL (78.0-98.0); Mean Platelet Volume 10.6 fL (7.4-10.4); Platelet Count 378 thou/uL (130-400); RBC Distribution Width 14.8 % (11.5-14.5)
[2021-01-15 09:20] LABS: ALT (SGPT) 181 U/L (8-55); AST (SGOT) 160 U/L (5-34); Alkaline Phosphatase 70 U/L (40-110); Anion Gap 20 mmol/L (10-20); Bilirubin, Total 7.3 mg/dL (0.2-1.2); Calc. Creatinine Clearance 16 mL/min (70-130); Calcium 8.1 mg/dL (7.8-10.44); Carbon Dioxide 31 mmol/L (22-29); Chloride 97 mmol/L (98-107); Globulin 1.8 g/dL (2.4-3.5); Glucose 166 mg/dL (70-105); Potassium 3.9 mmol/L (3.5-5.1); Protein, Total 4.8 g/dL (6.0-8.3); Sodium 144 mmol/L (136-145)
[2021-01-15] MEDS: Albumin 25% 25 GM/100 ML BOT IVPB SCH ×3 (09:30→21:42)
[2021-01-15] MEDS: Pantoprazole 40 MG VIAL IVP SCH ×2 (09:30→21:43)
[2021-01-15 09:31] LABS: BUN (Urea Nitrogen) 125 mg/dL (9.8-20.1)
[2021-01-15] MEDS ORDERED: Furosemide 100 MG/10 ML VIAL SLOW IVP SCH (11:20)
[2021-01-15] MEDS ORDERED: Furosemide 100 MG/10 ML VIAL ONE (11:24)
[2021-01-15] MEDS: Lactated Ringer's 1,000 ML IV SCH (11:50)
[2021-01-15 12:01] LABS: Band 62 % (5-11); Dohle Bodies SLIGHT; Lymphocytes 7 % (21-51); MDiff Complete? YES; Metamyelocyte 6 % (0-0); Monocytes 4 % (0-10); Myelocyte 3 % (0-0); Neutrophil 15 % (42-75); Platelet Morphology Comment Appears Adequate; Polychromasia MODERATE = 3-4 cells (100X) (0-2/hpf); Reactive Lymphocytes 3 % (0-10); Reflex for Review?? NO; Vacuoles MODERATE
[2021-01-15] MEDS ORDERED: Midazolam HCl 2 mg/2 ml Vial ONE (12:01)
[2021-01-15 12:05] LABS: Actual Bicarbonate (HCO3a) 27.3 mEq/L (22-28); Calcium, Ionized (arterial) 1.06 mmol/L (1.12-1.30); Carboxyhemoglobin (COHb) 0.3 gm% (0.0-3.0); O2 Tension (PaO2), arterial 66.7 mmHg (80.0-100.0); Potassium - ABG Lab 3.68 mmol/L (3.70-5.30); Puncture Site LBA; pH, Arterial 7.39 (7.35-7.45)
[2021-01-15] MEDS ORDERED: MEROPENEM 1 GM/50 ML 1 GM in Premix Bag 1 BAG IVPB SCH (12:30)
[2021-01-15] MEDS ORDERED: Propofol 1,000 MG/100 ML VIAL IV ONE (12:36)
[2021-01-15 13:11] LABS: CO2 Tension 34.1 mmHg (35.0-45.0); Calcium, Ionized (arterial) 0.99 mmol/L (1.12-1.30); Carboxyhemoglobin (COHb) 0.1 gm% (0.0-3.0); Hemoglobin (Hb) 11.6 g/dL (12.0-16.0); Potassium - ABG Lab 3.58 mmol/L (3.70-5.30)
[2021-01-15] MEDS ORDERED: Fentanyl CADD 100 ML IV SCH (13:45)
[2021-01-15] MEDS ORDERED: Morphine 2 MG/ML VIAL SLOW IVP PRN (13:45)
[2021-01-15] MEDS ORDERED: Propofol BOLUS 1,000 MG/100 ML VIAL IV PRN (13:45)
[2021-01-15] MEDS ORDERED: DISCONTINUE PREVIOUS NARCOTIC PAIN MEDICATIONS AND BENZODIAZEPINES FS SCH (13:45)
[2021-01-15] MEDS: Lorazepam 2 MG/ML VIAL SLOW IVP PRN ×2 (13:45→21:42)
[2021-01-15] MEDS ORDERED: Fentanyl BOLUS 250 ML IVPB PRN (13:45)
[2021-01-15 13:55] LABS: Puncture Site LBA
[2021-01-15 13:56] LABS: ALV-art Gradient 321.175 mmHg (0-20)
[2021-01-15] MEDS ORDERED: Lactated Ringer's 1,000 ML IV SCH (19:45)
[2021-01-15] MEDS ORDERED: Meropenem 2 GM in Admixture Fee 1 EACH IVPB SCH (21:00)
[2021-01-15] MEDS: Acetaminophen 650 MG Suppository PR PRN (21:43)
[2021-01-15] MEDS: Enoxaparin Sodium 30 MG/0.3 ML SYRINGE SC SCH (21:43)
[2021-01-15] MEDS: Meropenem 500 MG in Sodium Chloride 0.9% 100 ML IVPB SCH (21:44)
[2021-01-15] MEDS: Propofol 1,000 MG/100 ML VIAL IV PRN (21:51)
[2021-01-15] MEDS: FAT EMULSION IV SCH (22:21)
[2021-01-15] MEDS: [UNRECOGNIZED DRUG - OTHER] IV SCH (22:21)
[2021-01-15] MEDS: SODIUM CHLORIDE IV SCH (22:21)
[2021-01-15] MEDS: SODIUM ACETATE IV SCH (22:21)
[2021-01-16] MEDS: Lactated Ringer's 1,000 ML IV SCH ×2 (02:01→14:00)
[2021-01-16] MEDS: Albumin 25% 25 GM/100 ML BOT IVPB SCH ×2 (03:57→08:17)
[2021-01-16 04:31] LABS: INR-International Normal Ratio 1.3; Prothrombin Time 16.8 sec (12.0-14.7)
[2021-01-16 04:51] LABS: ALT (SGPT) 122 U/L (8-55); AST (SGOT) 83 U/L (5-34); Albumin 3.3 g/dL (3.5-5.0); Alkaline Phosphatase 59 U/L (40-110); Anion Gap 18 mmol/L (10-20); BUN (Urea Nitrogen) 131 mg/dL (9.8-20.1); Bilirubin, Total 7.6 mg/dL (0.2-1.2); Calc. Creatinine Clearance 15 mL/min (70-130); Calcium 8.4 mg/dL (7.8-10.44); Carbon Dioxide 28 mmol/L (22-29); Chloride 104 mmol/L (98-107); Globulin 1.7 g/dL (2.4-3.5); Glucose 147 mg/dL (70-105); Phosphorus 2.1 mg/dL (2.3-4.7); Potassium 3.4 mmol/L (3.5-5.1); Sodium 147 mmol/L (136-145)
[2021-01-16 04:53] LABS: Hemoglobin 8.5 g/dL (12.0-16.0); Mean Corpuscular HGB CONC 33.8 g/dL (32.0-36.0); Mean Corpuscular Hemoglobin 30.2 pg (27.0-31.0); Mean Corpuscular Volume 89.3 fL (78.0-98.0); Mean Platelet Volume 10.8 fL (7.4-10.4); Platelet Count 315 thou/uL (130-400); Red Blood Cell (RBC) Count 2.82 mill/uL (4.20-5.40)
[2021-01-16 05:48] LABS: Band 64 % (5-11); Dohle Bodies SLIGHT; Eosinophils 1 % (0-10); Large Platelets SLIGHT; Lymphocytes 14 % (21-51); MDiff Complete? YES; Metamyelocyte 5 % (0-0); Monocytes 3 % (0-10); Neutrophil 13 % (42-75); Platelet Morphology Comment Appears Adequate; Vacuoles SLIGHT
[2021-01-16] MEDS: Norepinephrine 8 MG/0.9% NS 250 ML IVPB SCH ×2 (06:40→21:51)
[2021-01-16] MEDS: Lorazepam 2 MG/ML VIAL SLOW IVP PRN ×4 (07:28→20:17)
[2021-01-16] MEDS: Pantoprazole 40 MG VIAL IVP SCH ×2 (08:18→21:51)
[2021-01-16] MEDS: Meropenem 500 MG in Sodium Chloride 0.9% 100 ML IVPB SCH ×2 (10:19→21:51)
[2021-01-16] MEDS: Propofol 1,000 MG/100 ML VIAL IV PRN (12:04)
[2021-01-16] MEDS: Acetaminophen 650 MG Suppository PR PRN (15:11)
[2021-01-16] MEDS: Enoxaparin Sodium 30 MG/0.3 ML SYRINGE SC SCH (21:51)
[2021-01-16] MEDS: SODIUM ACETATE IV SCH (22:18)
[2021-01-16] MEDS: SODIUM CHLORIDE IV SCH (22:18)
[2021-01-16] MEDS: [UNRECOGNIZED DRUG - OTHER] IV SCH (22:18)
[2021-01-16] MEDS: POTASSIUM ACETATE IV SCH (22:18)
[2021-01-17] MEDS: Lactated Ringer's 1,000 ML IV SCH (02:30)
[2021-01-17] MEDS: Lorazepam 2 MG/ML VIAL SLOW IVP PRN (04:27)
[2021-01-17 06:00] LABS: Hemoglobin 8.4 g/dL (12.0-16.0); Mean Corpuscular Volume 90.6 fL (78.0-98.0); Mean Platelet Volume 10.8 fL (7.4-10.4); Platelet Count 319 thou/uL (130-400); RBC Distribution Width 15.3 % (11.5-14.5); Red Blood Cell (RBC) Count 2.91 mill/uL (4.20-5.40); White Blood Cell (WBC) Count 12.7 thou/uL (4.8-10.8)
[2021-01-17 06:19] LABS: ALT (SGPT) 70 U/L (8-55); AST (SGOT) 40 U/L (5-34); Albumin 3.1 g/dL (3.5-5.0); Alkaline Phosphatase 65 U/L (40-110); Anion Gap 15 mmol/L (10-20); Bilirubin, Total 6.2 mg/dL (0.2-1.2); Calc. Creatinine Clearance 16 mL/min (70-130); Calcium 8.9 mg/dL (7.8-10.44); Carbon Dioxide 29 mmol/L (22-29); Chloride 111 mmol/L (98-107); Globulin 1.8 g/dL (2.4-3.5); Glucose 154 mg/dL (70-105); Magnesium 3.1 mg/dL (1.6-2.6); Phosphorus 2.6 mg/dL (2.3-4.7); Potassium 3.5 mmol/L (3.5-5.1); Protein, Total 4.9 g/dL (6.0-8.3); Sodium 151 mmol/L (136-145)
[2021-01-17 06:28] LABS: BUN (Urea Nitrogen) 140 mg/dL (9.8-20.1)
[2021-01-17 08:08] LABS: Anisocytosis SLIGHT = 6-15 cells (100X) (0-5/hpf); Band 38 % (5-11); Lymphocytes 17 % (21-51); MDiff Complete? YES; Metamyelocyte 1 % (0-0); Neutrophil 44 % (42-75); Ovalocytes SLIGHT = 2-5 cells (100X) (0-1/hpf); Target Cells MODERATE= 6-15 cells (100X) (0-1/hpf)
[2021-01-17] MEDS: Dextrose 5% in Water 1,000 ML IV SCH ×2 (10:28→17:40)
[2021-01-17] MEDS: Meropenem 500 MG in Sodium Chloride 0.9% 100 ML IVPB SCH ×2 (10:29→21:46)
[2021-01-17] MEDS: Pantoprazole 40 MG VIAL IVP SCH ×2 (10:39→21:46)
[2021-01-17] MEDS: Propofol 1,000 MG/100 ML VIAL IV PRN (12:38)
[2021-01-17 13:36] LABS: Chloride 113 mmol/L (98-107); Potassium 3.7 mmol/L (3.5-5.1)
[2021-01-17 13:37] LABS: Calcium 8.9 mg/dL (7.8-10.44)
[2021-01-17 13:39] LABS: Anion Gap 15 mmol/L (10-20); Carbon Dioxide 27 mmol/L (22-29)
[2021-01-17 13:40] LABS: Glucose 159 mg/dL (70-105); Sodium 151 mmol/L (136-145)
[2021-01-17 13:41] LABS: Calc. Creatinine Clearance 17 mL/min (70-130)
[2021-01-17 13:55] LABS: BUN (Urea Nitrogen) 132 mg/dL (9.8-20.1)
[2021-01-17] MEDS: Norepinephrine 8 MG/0.9% NS 250 ML IVPB SCH (17:38)
[2021-01-17] MEDS: Enoxaparin Sodium 30 MG/0.3 ML SYRINGE SC SCH (21:46)
[2021-01-17] MEDS: Acetaminophen 650 MG Suppository PR PRN (21:55)
[2021-01-17] MEDS: SODIUM CHLORIDE IV SCH (21:56)
[2021-01-17] MEDS: [UNRECOGNIZED DRUG - OTHER] IV SCH (21:56)
[2021-01-17] MEDS: SODIUM ACETATE IV SCH (21:56)
[2021-01-17] MEDS: POTASSIUM ACETATE IV SCH (21:56)
[2021-01-18 04:39] LABS: ALT (SGPT) 78 U/L (8-55); AST (SGOT) 64 U/L (5-34); Albumin 2.9 g/dL (3.5-5.0); Alkaline Phosphatase 80 U/L (40-110); Anion Gap 14 mmol/L (10-20); Calc. Creatinine Clearance 19 mL/min (70-130); Calcium 8.6 mg/dL (7.8-10.44); Carbon Dioxide 27 mmol/L (22-29); Chloride 112 mmol/L (98-107); Glucose 136 mg/dL (70-105); Potassium 3.8 mmol/L (3.5-5.1); Protein, Total 4.9 g/dL (6.0-8.3); Sodium 149 mmol/L (136-145)
[2021-01-18 04:42] LABS: Phosphorus 2.6 mg/dL (2.3-4.7)
[2021-01-18 04:49] LABS: Hemoglobin 8.8 g/dL (12.0-16.0); Mean Corpuscular HGB CONC 32.3 g/dL (32.0-36.0); Mean Corpuscular Hemoglobin 29.5 pg (27.0-31.0); Mean Corpuscular Volume 91.3 fL (78.0-98.0); Mean Platelet Volume 11.1 fL (7.4-10.4); Platelet Count 360 thou/uL (130-400); RBC Distribution Width 15.2 % (11.5-14.5); Red Blood Cell (RBC) Count 2.99 mill/uL (4.20-5.40); White Blood Cell (WBC) Count 13.2 thou/uL (4.8-10.8)
[2021-01-18 04:52] LABS: BUN (Urea Nitrogen) 130 mg/dL (9.8-20.1)
[2021-01-18 05:07] LABS: Band 35 % (5-11); Eosinophils 1 % (0-10); Lymphocytes 20 % (21-51); MDiff Complete? YES; Metamyelocyte 1 % (0-0); Monocytes 6 % (0-10); Myelocyte 2 % (0-0); Neutrophil 35 % (42-75)
[2021-01-18] MEDS: Dextrose 5% in Water 1,000 ML IV SCH ×2 (06:52→18:45)
[2021-01-18 07:47] LABS: Actual Bicarbonate (HCO3a) 22.1 mEq/L (22-28); Base Excess (BEa) -0.4 mEq/L (-2.0 to +3.0); CO2 Tension 28.3 mmHg (35.0-45.0); Calcium, Ionized (arterial) 1.19 mmol/L (1.12-1.30); Carboxyhemoglobin (COHb) 0.3 gm% (0.0-3.0); O2 Tension (PaO2), arterial 94.6 mmHg (80.0-100.0); Potassium - ABG Lab 3.59 mmol/L (3.70-5.30); pH, Arterial 7.51 (7.35-7.45)
[2021-01-18 07:53] LABS: ALV-art Gradient 119.575 mmHg (0-20); Puncture Site LRA
[2021-01-18] MEDS: Propofol 1,000 MG/100 ML VIAL IV PRN (08:47)
[2021-01-18] MEDS: Pantoprazole 40 MG VIAL IVP SCH ×2 (08:47→22:04)
[2021-01-18] MEDS: Meropenem 500 MG in Sodium Chloride 0.9% 100 ML IVPB SCH ×2 (10:11→22:04)
[2021-01-18] MEDS: SODIUM CHLORIDE IV SCH (22:00)
[2021-01-18] MEDS: [UNRECOGNIZED DRUG - OTHER] IV SCH (22:00)
[2021-01-18] MEDS: FAT EMULSION IV SCH (22:00)
[2021-01-18] MEDS: SODIUM ACETATE IV SCH (22:00)
[2021-01-18] MEDS: Enoxaparin Sodium 30 MG/0.3 ML SYRINGE SC SCH (22:03)
[2021-01-18] MEDS ORDERED: Dexmedetomidine 1,000 MCG in Sodium Chloride 0.9% 250 ML 240 ML IVPB SCH (22:15)
[2021-01-18] MEDS: Lorazepam 2 MG/ML VIAL SLOW IVP PRN (22:42)
[2021-01-19] MEDS: Dextrose 5% in Water 1,000 ML IV SCH ×3 (00:53→23:43)
[2021-01-19 05:07] LABS: Hemoglobin 8.2 g/dL (12.0-16.0); Mean Corpuscular HGB CONC 31.9 g/dL (32.0-36.0); Mean Corpuscular Hemoglobin 29.1 pg (27.0-31.0); Mean Corpuscular Volume 91.4 fL (78.0-98.0); Platelet Count 401 thou/uL (130-400); RBC Distribution Width 14.7 % (11.5-14.5); Red Blood Cell (RBC) Count 2.82 mill/uL (4.20-5.40); White Blood Cell (WBC) Count 18.2 thou/uL (4.8-10.8)
[2021-01-19 05:38] LABS: Albumin 2.7 g/dL (3.5-5.0)
[2021-01-19 05:39] LABS: Chloride 110 mmol/L (98-107); Potassium 3.8 mmol/L (3.5-5.1); Sodium 144 mmol/L (136-145)
[2021-01-19 05:40] LABS: Calcium 8.8 mg/dL (7.8-10.44)
[2021-01-19 05:41] LABS: Globulin 2.5 g/dL (2.4-3.5); Glucose 140 mg/dL (70-105); Protein, Total 5.2 g/dL (6.0-8.3)
[2021-01-19 05:42] LABS: Anion Gap 14 mmol/L (10-20); Bilirubin, Total 4.8 mg/dL (0.2-1.2); Carbon Dioxide 24 mmol/L (22-29)
[2021-01-19 05:43] LABS: Alkaline Phosphatase 102 U/L (40-110)
[2021-01-19 05:44] LABS: Calc. Creatinine Clearance 25 mL/min (70-130); Phosphorus 3.1 mg/dL (2.3-4.7)
[2021-01-19 05:45] LABS: BUN (Urea Nitrogen) 125 mg/dL (9.8-20.1)
[2021-01-19 05:46] LABS: ALT (SGPT) 85 U/L (8-55); AST (SGOT) 86 U/L (5-34); Magnesium 2.7 mg/dL (1.6-2.6)
[2021-01-19 06:24] LABS: Band 25 % (5-11); Eosinophils 2 % (0-10); Lymphocytes 17 % (21-51); MDiff Complete? YES; Monocytes 3 % (0-10); Neutrophil 53 % (42-75)
[2021-01-19 08:16] LABS: Actual Bicarbonate (HCO3a) 20.4 mEq/L (22-28); Base Excess (BEa) -2.6 mEq/L (-2.0 to +3.0); CO2 Tension 28.7 mmHg (35.0-45.0); Hemoglobin (Hb) 8.7 g/dL (12.0-16.0); O2 Tension (PaO2), arterial 86.9 mmHg (80.0-100.0); pH, Arterial 7.47 (7.35-7.45)
[2021-01-19 08:17] LABS: ALV-art Gradient 91.125 mmHg (0-20); Calcium, Ionized (arterial) 1.18 mmol/L (1.12-1.30); Carboxyhemoglobin (COHb) 0.1 gm% (0.0-3.0); Potassium - ABG Lab 3.66 mmol/L (3.70-5.30); Puncture Site RRA
[2021-01-19] MEDS: Meropenem 500 MG in Sodium Chloride 0.9% 100 ML IVPB SCH ×2 (08:35→22:54)
[2021-01-19] MEDS: Pantoprazole 40 MG VIAL IVP SCH ×2 (08:35→21:50)
[2021-01-19] MEDS: Ondansetron PF 4 MG/2 ML Vial IVP PRN (16:01)
[2021-01-19] MEDS: Melatonin 3 MG TAB PO PRN (21:49)
[2021-01-19] MEDS: Enoxaparin Sodium 30 MG/0.3 ML SYRINGE SC SCH (21:50)
[2021-01-19] MEDS: [UNRECOGNIZED DRUG - OTHER] IV SCH (22:24)
[2021-01-19] MEDS: SODIUM ACETATE IV SCH (22:24)
[2021-01-19] MEDS: POTASSIUM ACETATE IV SCH (22:24)
[2021-01-19] MEDS: SODIUM CHLORIDE IV SCH (22:24)
[2021-01-19] MEDS ORDERED: Labetalol HCl 100 MG/20 ML VIAL ONE (22:47)
[2021-01-20 05:11] LABS: ALT (SGPT) 88 U/L (8-55); AST (SGOT) 56 U/L (5-34); Albumin 2.7 g/dL (3.5-5.0); Alkaline Phosphatase 127 U/L (40-110); Anion Gap 13 mmol/L (10-20); BUN (Urea Nitrogen) 110 mg/dL (9.8-20.1); Bilirubin, Total 4.6 mg/dL (0.2-1.2); Calc. Creatinine Clearance 32 mL/min (70-130); Calcium 8.2 mg/dL (7.8-10.44); Carbon Dioxide 23 mmol/L (22-29); Chloride 107 mmol/L (98-107); Globulin 2.1 g/dL (2.4-3.5); Glucose 165 mg/dL (70-105); Potassium 4.2 mmol/L (3.5-5.1); Protein, Total 4.8 g/dL (6.0-8.3); Sodium 139 mmol/L (136-145)
[2021-01-20 05:26] LABS: Hemoglobin 9.1 g/dL (12.0-16.0); Mean Corpuscular HGB CONC 32.3 g/dL (32.0-36.0); Mean Corpuscular Volume 89.8 fL (78.0-98.0); Mean Platelet Volume 11.2 fL (7.4-10.4); Platelet Count 451 thou/uL (130-400); RBC Distribution Width 14.4 % (11.5-14.5); Red Blood Cell (RBC) Count 3.12 mill/uL (4.20-5.40); White Blood Cell (WBC) Count 21.3 thou/uL (4.8-10.8)
[2021-01-20] MEDS: HumaLOG 300 UNITS/3 ML VIAL SC PRN ×2 (06:00→22:08)
[2021-01-20 06:34] LABS: Band 17 % (5-11); Large Platelets SLIGHT; Lymphocytes 16 % (21-51); MDiff Complete? YES; Metamyelocyte 2 % (0-0); Monocytes 4 % (0-10); Neutrophil 61 % (42-75); Platelet Morphology Comment Appears Increased
[2021-01-20] MEDS: Pantoprazole 40 MG VIAL IVP SCH ×2 (09:06→20:54)
[2021-01-20] MEDS: Dextrose 5% in Water 1,000 ML IV SCH ×3 (10:41→21:12)
[2021-01-20] MEDS: Meropenem 500 MG in Sodium Chloride 0.9% 100 ML IVPB SCH ×2 (10:54→22:08)
[2021-01-20 11:50] LABS: SARS-CoV-2 PCR by NAA Not Detected (NotDetected)
[2021-01-20] MEDS ORDERED: Sodium Chloride 0.45% 1,000 ML IV SCH (17:45)
[2021-01-20] MEDS ORDERED: Lorazepam 2 MG/ML VIAL SLOW IVP SCH (20:15)
[2021-01-20] MEDS: Enoxaparin Sodium 30 MG/0.3 ML SYRINGE SC SCH (20:57)
[2021-01-20] MEDS: SODIUM ACETATE IV SCH (22:09)
[2021-01-20] MEDS: [UNRECOGNIZED DRUG - OTHER] IV SCH (22:09)
[2021-01-20] MEDS: SODIUM CHLORIDE IV SCH (22:09)
[2021-01-20] MEDS: FAT EMULSION IV SCH (22:09)
[2021-01-21 04:01] LABS: Mean Corpuscular HGB CONC 32.9 g/dL (32.0-36.0); Mean Corpuscular Hemoglobin 29.5 pg (27.0-31.0); Mean Corpuscular Volume 89.7 fL (78.0-98.0); Mean Platelet Volume 10.9 fL (7.4-10.4); Platelet Count 409 thou/uL (130-400); RBC Distribution Width 14.8 % (11.5-14.5); Red Blood Cell (RBC) Count 3.06 mill/uL (4.20-5.40); White Blood Cell (WBC) Count 22.3 thou/uL (4.8-10.8)
[2021-01-21 04:11] LABS: ALT (SGPT) 93 U/L (8-55); AST (SGOT) 59 U/L (5-34); Albumin 2.7 g/dL (3.5-5.0); Alkaline Phosphatase 162 U/L (40-110); Anion Gap 13 mmol/L (10-20); BUN (Urea Nitrogen) 109 mg/dL (9.8-20.1); Bilirubin, Total 4.3 mg/dL (0.2-1.2); Calc. Creatinine Clearance 37 mL/min (70-130); Calcium 7.8 mg/dL (7.8-10.44); Carbon Dioxide 21 mmol/L (22-29); Chloride 107 mmol/L (98-107); Globulin 2.3 g/dL (2.4-3.5); Glucose 134 mg/dL (70-105); Potassium 4.8 mmol/L (3.5-5.1); Sodium 136 mmol/L (136-145)
[2021-01-21 04:40] LABS: Band 23 % (5-11); Eosinophils 1 % (0-10); Lymphocytes 9 % (21-51); MDiff Complete? YES; Metamyelocyte 2 % (0-0); Monocytes 4 % (0-10); Neutrophil 61 % (42-75)
[2021-01-21] MEDS: Pantoprazole 40 MG VIAL IVP SCH ×2 (09:34→21:31)
[2021-01-21] MEDS ORDERED: Lactated Ringer's 1,000 ML IV SCH (10:45)
[2021-01-21] MEDS ORDERED: Sterile Water 10 ML VIAL IVP SCH (12:45)
[2021-01-21] MEDS ORDERED: Activase 2 MG VIAL CATH SCH (12:45)
[2021-01-21] MEDS: Meropenem 500 MG in Sodium Chloride 0.9% 100 ML IVPB SCH ×2 (14:40→21:31)
[2021-01-21] MEDS ORDERED: Sodium Chloride 0.45% 1,000 ML IV SCH (14:45)
[2021-01-21] MEDS: Dextrose 5% in Water 1,000 ML IV SCH ×2 (14:46→20:08)
[2021-01-21] MEDS ORDERED: Metoclopramide HCl 10 MG/2 ML VIAL IVP SCH (15:15)
[2021-01-21] MEDS: Albumin 25% 25 GM/100 ML BOT IVPB SCH ×2 (18:29→23:45)
[2021-01-21] MEDS: Enoxaparin Sodium 30 MG/0.3 ML SYRINGE SC SCH (21:30)
[2021-01-21] MEDS: [UNRECOGNIZED DRUG - OTHER] IV SCH (23:32)
[2021-01-21] MEDS: SODIUM CHLORIDE IV SCH (23:32)
[2021-01-21] MEDS: SODIUM ACETATE IV SCH (23:32)
[2021-01-21] MEDS: POTASSIUM ACETATE IV SCH (23:32)
[2021-01-22] MEDS: Dextrose 5% in Water 1,000 ML IV SCH (03:41)
[2021-01-22] MEDS: Albumin 25% 25 GM/100 ML BOT IVPB SCH ×3 (06:34→18:25)
[2021-01-22 07:12] LABS: Hemoglobin 8.2 g/dL (12.0-16.0); Mean Corpuscular HGB CONC 33.8 g/dL (32.0-36.0); Mean Corpuscular Volume 88.9 fL (78.0-98.0); Mean Platelet Volume 10.7 fL (7.4-10.4); Platelet Count 483 thou/uL (130-400); RBC Distribution Width 15.1 % (11.5-14.5); Red Blood Cell (RBC) Count 2.73 mill/uL (4.20-5.40); White Blood Cell (WBC) Count 21.9 thou/uL (4.8-10.8)
[2021-01-22 07:16] LABS: Anion Gap 15 mmol/L (10-20); BUN (Urea Nitrogen) 111 mg/dL (9.8-20.1); Calc. Creatinine Clearance 36 mL/min (70-130); Calcium 8.3 mg/dL (7.8-10.44); Carbon Dioxide 19 mmol/L (22-29); Chloride 107 mmol/L (98-107); Glucose 131 mg/dL (70-105); Potassium 5.2 mmol/L (3.5-5.1); Sodium 136 mmol/L (136-145)
[2021-01-22 08:06] LABS: Band 53 % (5-11); Large Platelets SLIGHT; Lymphocytes 7 % (21-51); MDiff Complete? YES; Monocytes 3 % (0-10); Neutrophil 37 % (42-75); Platelet Morphology Comment Appears Increased; Polychromasia MODERATE = 3-4 cells (100X) (0-2/hpf)
[2021-01-22] MEDS: Meropenem 500 MG in Sodium Chloride 0.9% 100 ML IVPB SCH ×2 (09:28→21:36)
[2021-01-22] MEDS: Pantoprazole 40 MG VIAL IVP SCH ×2 (09:28→20:38)
[2021-01-22] MEDS ORDERED: Sodium Chloride 0.9% 1,000 ML IV SCH (10:00)
[2021-01-22] MEDS: Sodium Chloride 0.9% 1,000 ML IV SCH (12:47)
[2021-01-22] MEDS ORDERED: SODIUM ACETATE IV SCH (14:00)
[2021-01-22] MEDS ORDERED: SODIUM CHLORIDE IV SCH (14:00)
[2021-01-22] MEDS ORDERED: FAT EMULSION IV SCH (14:00)
[2021-01-22] MEDS ORDERED: [UNRECOGNIZED DRUG - OTHER] IV SCH (14:00)
[2021-01-22] MEDS: Enoxaparin Sodium 30 MG/0.3 ML SYRINGE SC SCH (20:39)
[2021-01-23] MEDS: Sodium Chloride 0.9% 1,000 ML IV SCH ×4 (08:01→23:13)
[2021-01-23] MEDS: Pantoprazole 40 MG VIAL IVP SCH ×2 (08:01→21:20)
[2021-01-23] MEDS ORDERED: Morphine 4 MG/ML VIAL SLOW IVP PRN (08:55)
[2021-01-23] MEDS ORDERED: Hydrocodone-Acetamin 15 ML UDCUP PER TUBE PRN (08:55)
[2021-01-23] MEDS ORDERED: Acetaminophen 325 MG TAB PO PRN (08:57)
[2021-01-23] MEDS: Meropenem 500 MG in Sodium Chloride 0.9% 100 ML IVPB SCH ×2 (11:18→21:20)
[2021-01-23] MEDS ORDERED: CALCIUM CHLORIDE IV SCH (14:00)
[2021-01-23] MEDS ORDERED: SODIUM ACETATE IV SCH (14:00)
[2021-01-23] MEDS ORDERED: SODIUM CHLORIDE IV SCH (14:00)
[2021-01-23] MEDS ORDERED: [UNRECOGNIZED DRUG - OTHER] IV SCH (14:00)
[2021-01-23] MEDS ORDERED: Sodium Chloride 0.9% 1,000 ML IV SCH (17:15)
[2021-01-23] MEDS: Enoxaparin Sodium 30 MG/0.3 ML SYRINGE SC SCH (21:20)
[2021-01-23 23:07] LABS: Hemoglobin 7.5 g/dL (12.0-16.0)
[2021-01-24] MEDS: Sodium Chloride 0.9% 1,000 ML IV SCH ×2 (00:10→08:34)
[2021-01-24] MEDS: Ondansetron PF 4 MG/2 ML Vial IVP PRN (00:10)
[2021-01-24 06:18] LABS: Anion Gap 17 mmol/L (10-20); Calc. Creatinine Clearance 26 mL/min (70-130); Calcium 7.1 mg/dL (7.8-10.44); Carbon Dioxide 10 mmol/L (22-29); Chloride 120 mmol/L (98-107); Glucose 119 mg/dL (70-105); Potassium 5.4 mmol/L (3.5-5.1); Sodium 142 mmol/L (136-145)
[2021-01-24 06:24] LABS: Band 31 % (5-11); Hemoglobin 7.5 g/dL (12.0-16.0); Lymphocytes 10 % (21-51); MDiff Complete? YES; Mean Corpuscular HGB CONC 33.8 g/dL (32.0-36.0); Mean Corpuscular Hemoglobin 30.9 pg (27.0-31.0); Mean Corpuscular Volume 91.5 fL (78.0-98.0); Mean Platelet Volume 10.2 fL (7.4-10.4); Monocytes 6 % (0-10); Neutrophil 53 % (42-75); Platelet Count 466 thou/uL (130-400); Platelet Morphology Comment Appears Increased; RBC Distribution Width 15.2 % (11.5-14.5); Red Blood Cell (RBC) Count 2.44 mill/uL (4.20-5.40); White Blood Cell (WBC) Count 13.7 thou/uL (4.8-10.8)
[2021-01-24 06:30] LABS: BUN (Urea Nitrogen) 122 mg/dL (9.8-20.1)
[2021-01-24] MEDS: Pantoprazole 40 MG VIAL IVP SCH ×2 (08:33→21:49)
[2021-01-24] MEDS: Meropenem 500 MG in Sodium Chloride 0.9% 100 ML IVPB SCH ×2 (09:35→21:49)
[2021-01-24] MEDS ORDERED: Sodium Bicarbonate 150 MEQ in Dextrose 5% in Water 1,000 ML IV SCH ×2 (10:30→11:00)
[2021-01-24] MEDS: Diphenoxylate HCl/Atropine Tablet PO SCH ×3 (11:45→22:05)
[2021-01-24] MEDS ORDERED: Albumin 25% 25 GM/100 ML BOT IVPB SCH (12:00)
[2021-01-24] MEDS ORDERED: EPOETIN ALFA-EPBX (ESRD) 10,000 UNIT/ML VIAL SC SCH (13:00)
[2021-01-24] MEDS: EPOETIN ALFA-EPBX (ESRD) 10,000 UNIT/ML VIAL SC SCH (13:40)
[2021-01-24] MEDS: Calcium Acetate 667 MG CAP PO SCH ×2 (13:40→17:14)
[2021-01-24 18:47] LABS: Anion Gap 21 mmol/L (10-20); Calc. Creatinine Clearance 24 mL/min (70-130); Calcium 7.5 mg/dL (7.8-10.44); Carbon Dioxide 11 mmol/L (22-29); Chloride 117 mmol/L (98-107); Glucose 152 mg/dL (70-105); Magnesium 2.9 mg/dL (1.6-2.6); Phosphorus 6.5 mg/dL (2.3-4.7); Potassium 5.2 mmol/L (3.5-5.1); Sodium 144 mmol/L (136-145)
[2021-01-24 19:01] LABS: BUN (Urea Nitrogen) 124 mg/dL (9.8-20.1)
[2021-01-24] MEDS: Enoxaparin Sodium 30 MG/0.3 ML SYRINGE SC SCH (21:49)
[2021-01-25 07:51] LABS: ALT (SGPT) 74 U/L (8-55); AST (SGOT) 38 U/L (5-34); Albumin 3.2 g/dL (3.5-5.0); Alkaline Phosphatase 122 U/L (40-110); Anion Gap 21 mmol/L (10-20); Bilirubin, Total 5.1 mg/dL (0.2-1.2); Calc. Creatinine Clearance 19 mL/min (70-130); Calcium 8.6 mg/dL (7.8-10.44); Carbon Dioxide 14 mmol/L (22-29); Chloride 115 mmol/L (98-107); Globulin 2.1 g/dL (2.4-3.5); Glucose 114 mg/dL (70-105); Magnesium 3.1 mg/dL (1.6-2.6); Phosphorus 7.4 mg/dL (2.3-4.7); Protein, Total 5.3 g/dL (6.0-8.3); Sodium 145 mmol/L (136-145)
[2021-01-25 08:02] LABS: BUN (Urea Nitrogen) 131 mg/dL (9.8-20.1)
[2021-01-25 08:03] LABS: Hemoglobin 8.1 g/dL (12.0-16.0); Mean Corpuscular HGB CONC 34.2 g/dL (32.0-36.0); Mean Corpuscular Hemoglobin 30.9 pg (27.0-31.0); Mean Corpuscular Volume 90.4 fL (78.0-98.0); Mean Platelet Volume 10.5 fL (7.4-10.4); Platelet Count 554 thou/uL (130-400); RBC Distribution Width 15.1 % (11.5-14.5); Red Blood Cell (RBC) Count 2.63 mill/uL (4.20-5.40); White Blood Cell (WBC) Count 12.3 thou/uL (4.8-10.8)
[2021-01-25] MEDS ORDERED: Sodium Bicarbonate 150 MEQ in Dextrose 5% in Water 1,000 ML IV SCH (08:31)
[2021-01-25 08:41] LABS: Anisocytosis SLIGHT = 6-15 cells (100X) (0-5/hpf); Band 29 % (5-11); Dohle Bodies SLIGHT; Lymphocytes 21 % (21-51); MDiff Complete? YES; Metamyelocyte 1 % (0-0); Monocytes 5 % (0-10); Myelocyte 1 % (0-0); Neutrophil 43 % (42-75); Platelet Morphology Comment Appears Increased; Polychromasia SLIGHT = 2-3 cells (100X) (0-2/hpf); Toxic Granulation SLIGHT; Vacuoles SLIGHT
[2021-01-25] MEDS: Pantoprazole 40 MG VIAL IVP SCH ×2 (09:28→21:47)
[2021-01-25] MEDS ORDERED: Sodium Chloride 0.9% 1,000 ML IV SCH (10:00)
[2021-01-25] MEDS: Meropenem 500 MG in Sodium Chloride 0.9% 100 ML IVPB SCH ×2 (11:59→21:47)
[2021-01-25] MEDS: Calcium Acetate 667 MG CAP PO SCH ×3 (12:07→17:47)
[2021-01-25] MEDS: Diphenoxylate HCl/Atropine Tablet PO SCH ×3 (12:07→21:47)
[2021-01-25] MEDS: Ondansetron PF 4 MG/2 ML Vial IVP PRN (15:15)
[2021-01-25 18:12] LABS: Anion Gap 19 mmol/L (10-20); Calc. Creatinine Clearance 20 mL/min (70-130); Calcium 8.5 mg/dL (7.8-10.44); Carbon Dioxide 18 mmol/L (22-29); Chloride 116 mmol/L (98-107); Glucose 132 mg/dL (70-105); Potassium 4.8 mmol/L (3.5-5.1); Sodium 148 mmol/L (136-145)
[2021-01-25 18:27] LABS: BUN (Urea Nitrogen) 143 mg/dL (9.8-20.1)
[2021-01-25] MEDS ORDERED: Sodium Bicarbonate 100 MEQ in Dextrose 5% in Water 1,000 ML IV SCH (19:15)
[2021-01-25] MEDS: Enoxaparin Sodium 30 MG/0.3 ML SYRINGE SC SCH (21:47)
[2021-01-25] MEDS: Melatonin 3 MG TAB PO PRN (21:47)
[2021-01-26 06:44] LABS: Hemoglobin 7.7 g/dL (12.0-16.0); Mean Corpuscular HGB CONC 32.9 g/dL (32.0-36.0); Mean Corpuscular Hemoglobin 29.9 pg (27.0-31.0); Mean Corpuscular Volume 90.9 fL (78.0-98.0); Mean Platelet Volume 10.1 fL (7.4-10.4); Platelet Count 542 thou/uL (130-400); Red Blood Cell (RBC) Count 2.58 mill/uL (4.20-5.40); White Blood Cell (WBC) Count 15.4 thou/uL (4.8-10.8)
[2021-01-26 06:45] LABS: Band 28 % (5-11); Eosinophils 1 % (0-10); Hypochromia SLIGHT = 6-15 cells (100X) (0-5/hpf); Lymphocytes 9 % (21-51); MDiff Complete? YES; Monocytes 11 % (0-10); Neutrophil 51 % (42-75); Platelet Morphology Comment Appears Increased
[2021-01-26 06:50] LABS: ALT (SGPT) 58 U/L (8-55); AST (SGOT) 33 U/L (5-34); Albumin 2.8 g/dL (3.5-5.0); Alkaline Phosphatase 109 U/L (40-110); Anion Gap 18 mmol/L (10-20); Bilirubin, Total 4.1 mg/dL (0.2-1.2); Calc. Creatinine Clearance 21 mL/min (70-130); Calcium 9.3 mg/dL (7.8-10.44); Carbon Dioxide 23 mmol/L (22-29); Chloride 112 mmol/L (98-107); Globulin 2.1 g/dL (2.4-3.5); Glucose 139 mg/dL (70-105); Potassium 4.6 mmol/L (3.5-5.1); Protein, Total 4.9 g/dL (6.0-8.3); Sodium 148 mmol/L (136-145)
[2021-01-26 07:01] LABS: BUN (Urea Nitrogen) 124 mg/dL (9.8-20.1)
[2021-01-26] MEDS ORDERED: Sodium Chloride 0.45% 1,000 ML IV SCH ×2 (07:30→12:30)
[2021-01-26] MEDS: Calcium Acetate 667 MG CAP PO SCH ×3 (08:00→17:31)
[2021-01-26] MEDS: Pantoprazole 40 MG VIAL IVP SCH ×2 (09:01→21:07)
[2021-01-26] MEDS ORDERED: CEFAZOLIN 2 GM in Premix Bag 1 BAG IVPB SCH (10:15)
[2021-01-26] MEDS: Diphenoxylate HCl/Atropine Tablet PO SCH ×3 (11:12→21:06)
[2021-01-26] MEDS ORDERED: Sodium Chloride 0.9% 250 ML 250 ML IVPB SCH (12:30)
[2021-01-26] MEDS ORDERED: Albumin 25% 25 GM/100 ML BOT IVPB SCH (12:30)
[2021-01-26] MEDS ORDERED: ceFAZolin 2 GM/DEX 5% 100 ML BAG ONE (14:29)
[2021-01-26] MEDS ORDERED: Lidocaine 1% w/Epinephrine 1:100K 20 ML VIAL ONE (14:40)
[2021-01-26] MEDS ORDERED: Bupivacaine PF 0.5% 30 ML VIAL ONE (14:40)
[2021-01-26] MEDS ORDERED: Sodium Chloride 0.9% 0 ML ONE (14:40)
[2021-01-26] MEDS ORDERED: Ketamine 50 MG/ML (10ML VIAL) ONE (15:04)
[2021-01-26] MEDS ORDERED: Fentanyl 100 MCG/2 ML VIAL ONE (15:04)
[2021-01-26] MEDS ORDERED: Dexamethasone 20 MG/5 ML VIAL ONE (15:17)
[2021-01-26] MEDS ORDERED: Lidocaine 1% PF 5 ML VIAL ONE (15:17)
[2021-01-26] MEDS ORDERED: Ondansetron PF 4 MG/2 ML Vial ONE (15:17)
[2021-01-26] MEDS ORDERED: Succinylcholine 200 MG/10 ml SYRINGE FS ONE (15:17)
[2021-01-26] MEDS ORDERED: Albumin 5% 500 ML ONE (15:18)
[2021-01-26] MEDS ORDERED: Cepastat Lozenges 1 LOZ PO PRN (15:51)
[2021-01-26] MEDS: Meropenem 500 MG in Sodium Chloride 0.9% 100 ML IVPB SCH (15:53)
[2021-01-26] MEDS ORDERED: Phenylephrine 10 MG/ML VIAL ONE ×2 (16:16→16:17)
[2021-01-26] MEDS ORDERED: HYDROmorphone 2 MG/ML VIAL SLOW IVP PRN (16:35)
[2021-01-26] MEDS ORDERED: Ondansetron HCl/PF 4 MG/2 ML Vial IVP PRN (16:35)
[2021-01-26] MEDS: Sodium Chloride 0.45% 1,000 ML IV SCH ×2 (17:30→22:22)
[2021-01-26] MEDS: Albumin 25% 25 GM/100 ML BOT IVPB SCH ×2 (17:46→23:27)
[2021-01-26 17:59] LABS: Anion Gap 14 mmol/L (10-20); BUN (Urea Nitrogen) 112 mg/dL (9.8-20.1); Calc. Creatinine Clearance 28 mL/min (70-130); Calcium 8.2 mg/dL (7.8-10.44); Carbon Dioxide 21 mmol/L (22-29); Chloride 115 mmol/L (98-107); Glucose 139 mg/dL (70-105); Potassium 3.8 mmol/L (3.5-5.1); Sodium 146 mmol/L (136-145)
[2021-01-26] MEDS ORDERED: Pancrelipase DR 12,000 1 CAP FS PRN (18:00)
[2021-01-26] MEDS ORDERED: Sodium Bicarbonate Tab 325 MG TAB PER TUBE PRN (18:00)
[2021-01-26] MEDS: Enoxaparin Sodium 30 MG/0.3 ML SYRINGE SC SCH (21:06)
[2021-01-26] MEDS ORDERED: CALCIUM CHLORIDE IV SCH (22:00)
[2021-01-26] MEDS ORDERED: [UNRECOGNIZED DRUG - OTHER] IV SCH (22:00)
[2021-01-26] MEDS ORDERED: SODIUM ACETATE IV SCH (22:00)
[2021-01-27 00:29] LABS: SARS-CoV-2 PCR by NAA Not Detected (NotDetected)
[2021-01-27] MEDS: Meropenem 500 MG in Sodium Chloride 0.9% 100 ML IVPB SCH (01:35)
[2021-01-27] MEDS: Sodium Chloride 0.45% 1,000 ML IV SCH ×5 (05:51→23:35)
[2021-01-27] MEDS: Albumin 25% 25 GM/100 ML BOT IVPB SCH (05:51)
[2021-01-27 06:15] LABS: Anion Gap 12 mmol/L (10-20); BUN (Urea Nitrogen) 78 mg/dL (9.8-20.1); Calc. Creatinine Clearance 39 mL/min (70-130); Calcium 8.2 mg/dL (7.8-10.44); Carbon Dioxide 19 mmol/L (22-29); Chloride 117 mmol/L (98-107); Glucose 118 mg/dL (70-105); Potassium 3.5 mmol/L (3.5-5.1); Sodium 144 mmol/L (136-145)
[2021-01-27 06:23] LABS: Band 39 % (5-11); Hemoglobin 6.1 g/dL (12.0-16.0); Lymphocytes 13 % (21-51); MDiff Complete? YES; Mean Corpuscular HGB CONC 32.5 g/dL (32.0-36.0); Mean Corpuscular Volume 92.4 fL (78.0-98.0); Mean Platelet Volume 9.5 fL (7.4-10.4); Metamyelocyte 2 % (0-0); Monocytes 3 % (0-10); Myelocyte 1 % (0-0); Neutrophil 42 % (42-75); Platelet Count 411 thou/uL (130-400); Platelet Morphology Comment Appears Increased; RBC Distribution Width 14.9 % (11.5-14.5); Red Blood Cell (RBC) Count 2.04 mill/uL (4.20-5.40); White Blood Cell (WBC) Count 13.5 thou/uL (4.8-10.8)
[2021-01-27] MEDS: Calcium Acetate 667 MG CAP PO SCH ×3 (09:32→17:20)
[2021-01-27] MEDS: Diphenoxylate HCl/Atropine Tablet PO SCH ×3 (09:32→20:51)
[2021-01-27] MEDS: Pantoprazole 40 MG VIAL IVP SCH (09:32)
[2021-01-27] MEDS: Enoxaparin Sodium 30 MG/0.3 ML SYRINGE SC SCH (20:51)
[2021-01-27] MEDS ORDERED: SODIUM ACETATE IV SCH (22:00)
[2021-01-27] MEDS ORDERED: [UNRECOGNIZED DRUG - OTHER] IV SCH (22:00)
[2021-01-27] MEDS ORDERED: CALCIUM GLUCONATE IV SCH (22:00)
[2021-01-28] MEDS: Ondansetron PF 4 MG/2 ML Vial IVP PRN (02:09)
[2021-01-28] MEDS: Sodium Chloride 0.45% 1,000 ML IV SCH ×3 (02:09→13:57)
[2021-01-28 06:48] LABS: Hemoglobin 9.7 g/dL (12.0-16.0); Mean Corpuscular HGB CONC 33.2 g/dL (32.0-36.0); Mean Corpuscular Hemoglobin 30.5 pg (27.0-31.0); Mean Platelet Volume 9.2 fL (7.4-10.4); Platelet Count 349 thou/uL (130-400); RBC Distribution Width 14.7 % (11.5-14.5); Red Blood Cell (RBC) Count 3.16 mill/uL (4.20-5.40); White Blood Cell (WBC) Count 22.5 thou/uL (4.8-10.8)
[2021-01-28 06:51] LABS: Anion Gap 14 mmol/L (10-20); BUN (Urea Nitrogen) 63 mg/dL (9.8-20.1); Calc. Creatinine Clearance 52 mL/min (70-130); Calcium 8.7 mg/dL (7.8-10.44); Carbon Dioxide 18 mmol/L (22-29); Chloride 113 mmol/L (98-107); Glucose 145 mg/dL (70-105); Potassium 3.3 mmol/L (3.5-5.1); Sodium 142 mmol/L (136-145)
[2021-01-28 08:34] LABS: Band 53 % (5-11); Dohle Bodies SLIGHT; Eosinophils 3 % (0-10); Lymphocytes 8 % (21-51); MDiff Complete? YES; Metamyelocyte 2 % (0-0); Monocytes 4 % (0-10); Myelocyte 1 % (0-0); Neutrophil 29 % (42-75); Platelet Morphology Comment Appears Adequate; Polychromasia MODERATE = 3-4 cells (100X) (0-2/hpf); Toxic Granulation MODERATE
[2021-01-28] MEDS ORDERED: Pantoprazole 40 MG GRANULES PACKET PER TUBE SCH (09:00)
[2021-01-28] MEDS: Calcium Acetate 667 MG CAP PO SCH ×3 (09:08→18:50)
[2021-01-28] MEDS: Diphenoxylate HCl/Atropine Tablet PO SCH (09:09)
[2021-01-28] MEDS ORDERED: Acetaminophen 325 MG TAB PER TUBE PRN (12:57)
[2021-01-28] MEDS: Potassium Chloride 20 MEQ in Premix Bag 1 BAG IVPB SCH ×2 (14:20→16:22)
[2021-01-28 21:21] LABS: Magnesium 1.9 mg/dL (1.6-2.6)
[2021-01-28 21:45] LABS: Potassium 4.1 mmol/L (3.5-5.1)
[2021-01-28] MEDS: CALCIUM GLUCONATE IV SCH (22:18)
[2021-01-28] MEDS: [UNRECOGNIZED DRUG - OTHER] IV SCH (22:18)
[2021-01-28] MEDS: SODIUM ACETATE IV SCH (22:18)
[2021-01-28] MEDS: Enoxaparin Sodium 40 MG/0.4 ML SYRINGE SC SCH (22:19)
[2021-01-28 22:32] LABS: Bacteria/HPF 2+ HPF (None Seen); Bilirubin Negative (Negative); Blood, Urine 1+ (Negative); Clarity Clear (Clear); Glucose, Urine (Dipstick) Normal (Negative); Ketone, Urine Negative (Negative); Leukocyte Negative Leu/uL (Negative); Nitrite Negative (Negative); Protein, Urine (Dipstick) 100 mg/dL (Neg-Trace); RBC/HPF 0-3 HPF (0-3); Specific Gravity, Urine 1.022 (1.002-1.036); Urobilinogen Normal mg/dL (Less than 2)
[2021-01-28 22:44] LABS: Transitional Epithelial 0-3 HPF (None Seen)
[2021-01-28 22:45] LABS: Renal Epithelial 0-3 HPF (None Seen)
[2021-01-29] MEDS: Sodium Chloride 0.45% 1,000 ML IV SCH ×2 (00:30→18:09)
[2021-01-29 06:24] LABS: Anion Gap 14 mmol/L (10-20); BUN (Urea Nitrogen) 71 mg/dL (9.8-20.1); Calc. Creatinine Clearance 54 mL/min (70-130); Calcium 8.7 mg/dL (7.8-10.44); Carbon Dioxide 17 mmol/L (22-29); Chloride 110 mmol/L (98-107); Glucose 112 mg/dL (70-105); Magnesium 1.8 mg/dL (1.6-2.6); Potassium 3.5 mmol/L (3.5-5.1); Sodium 137 mmol/L (136-145)
[2021-01-29 06:29] LABS: ALT (SGPT) 31 U/L (8-55); AST (SGOT) 24 U/L (5-34); Albumin 2.9 g/dL (3.5-5.0); Alkaline Phosphatase 89 U/L (40-110); Bilirubin, Total 2.9 mg/dL (0.2-1.2); Protein, Total 4.9 g/dL (6.0-8.3)
[2021-01-29 06:41] LABS: Phosphorus 1.1 mg/dL (2.3-4.7)
[2021-01-29] MEDS: Calcium Acetate 667 MG CAP PO SCH ×3 (08:15→18:10)
[2021-01-29] MEDS ORDERED: Potassium Phosphate 30 MMOL in Sodium Chloride 0.9% 500 ML IVPB SCH (09:00)
[2021-01-29] MEDS: Pantoprazole 40 MG VIAL IVP SCH (09:12)
[2021-01-29] MEDS: [UNRECOGNIZED DRUG - OTHER] IV SCH (21:18)
[2021-01-29] MEDS: Enoxaparin Sodium 40 MG/0.4 ML SYRINGE SC SCH (21:18)
[2021-01-29] MEDS: SODIUM ACETATE IV SCH (21:18)
[2021-01-29] MEDS: CALCIUM GLUCONATE IV SCH (21:18)
[2021-01-30] MEDS: Sodium Chloride 0.45% 1,000 ML IV SCH ×2 (05:27→18:10)
[2021-01-30 07:42] LABS: Anion Gap 16 mmol/L (10-20); BUN (Urea Nitrogen) 77 mg/dL (9.8-20.1); Calc. Creatinine Clearance 56 mL/min (70-130); Calcium 8.3 mg/dL (7.8-10.44); Carbon Dioxide 16 mmol/L (22-29); Chloride 106 mmol/L (98-107); Glucose 98 mg/dL (70-105); Potassium 3.7 mmol/L (3.5-5.1); Sodium 134 mmol/L (136-145)
[2021-01-30 07:49] LABS: ALT (SGPT) 32 U/L (8-55); AST (SGOT) 23 U/L (5-34); Albumin 2.6 g/dL (3.5-5.0); Alkaline Phosphatase 99 U/L (40-110); Bilirubin, Direct 1.9 mg/dL (0.1-0.3); Bilirubin, Total 2.6 mg/dL (0.2-1.2); Phosphorus 2.3 mg/dL (2.3-4.7); Protein, Total 5.3 g/dL (6.0-8.3)
[2021-01-30 08:49] LABS: Band 44 % (5-11); Eosinophils 3 % (0-10); Hemoglobin 9.5 g/dL (12.0-16.0); Lymphocytes 24 % (21-51); MDiff Complete? YES; Mean Corpuscular HGB CONC 33.5 g/dL (32.0-36.0); Mean Corpuscular Hemoglobin 30.3 pg (27.0-31.0); Mean Corpuscular Volume 90.4 fL (78.0-98.0); Mean Platelet Volume 9.6 fL (7.4-10.4); Metamyelocyte 5 % (0-0); Monocytes 3 % (0-10); Myelocyte 1 % (0-0); Neutrophil 20 % (42-75); Nucleated RBC 2 % (0); Platelet Count 257 thou/uL (130-400); Red Blood Cell (RBC) Count 3.14 mill/uL (4.20-5.40); Toxic Granulation MODERATE; White Blood Cell (WBC) Count 22.8 thou/uL (4.8-10.8)
[2021-01-30] MEDS: Pantoprazole 40 MG VIAL IVP SCH (09:39)
[2021-01-30] MEDS: Calcium Acetate 667 MG CAP PO SCH ×2 (09:50→19:02)
[2021-01-30] MEDS: [UNRECOGNIZED DRUG - OTHER] IV SCH (22:38)
[2021-01-30] MEDS: CALCIUM GLUCONATE IV SCH (22:38)
[2021-01-30] MEDS: Enoxaparin Sodium 40 MG/0.4 ML SYRINGE SC SCH (22:38)
[2021-01-30] MEDS: SODIUM ACETATE IV SCH (22:38)
[2021-01-31 07:14] LABS: Anion Gap 15 mmol/L (10-20); BUN (Urea Nitrogen) 72 mg/dL (9.8-20.1); Calc. Creatinine Clearance 60 mL/min (70-130); Calcium 8.1 mg/dL (7.8-10.44); Carbon Dioxide 16 mmol/L (22-29); Chloride 105 mmol/L (98-107); Glucose 102 mg/dL (70-105); Potassium 3.5 mmol/L (3.5-5.1); Sodium 132 mmol/L (136-145)
[2021-01-31] MEDS: Sodium Chloride 0.45% 1,000 ML IV SCH ×2 (07:24→18:27)
[2021-01-31] MEDS: Pantoprazole 40 MG VIAL IVP SCH (10:51)
[2021-01-31] MEDS: Calcium Acetate 667 MG CAP PO SCH ×3 (10:51→17:10)
[2021-01-31] MEDS ORDERED: Sodium Chloride 0.9% 1,000 ML IV SCH (15:45)
[2021-01-31] MEDS: [UNRECOGNIZED DRUG - OTHER] IV SCH (22:06)
[2021-01-31] MEDS: Enoxaparin Sodium 40 MG/0.4 ML SYRINGE SC SCH (22:06)
[2021-01-31] MEDS: SODIUM ACETATE IV SCH (22:06)
[2021-01-31] MEDS: CALCIUM GLUCONATE IV SCH (22:06)
[2021-02-01 07:19] LABS: Anion Gap 14 mmol/L (10-20); BUN (Urea Nitrogen) 71 mg/dL (9.8-20.1); Calc. Creatinine Clearance 60 mL/min (70-130); Calcium 8.3 mg/dL (7.8-10.44); Carbon Dioxide 17 mmol/L (22-29); Chloride 104 mmol/L (98-107); Glucose 105 mg/dL (70-105); Potassium 3.5 mmol/L (3.5-5.1); Sodium 131 mmol/L (136-145)
[2021-02-01] MEDS ORDERED: Sodium Chloride 0.9% 1,000 ML IV SCH (07:45)
[2021-02-01] MEDS: Calcium Acetate 667 MG CAP PO SCH ×4 (07:54→17:06)
[2021-02-01] MEDS: Pantoprazole 40 MG VIAL IVP SCH (07:55)
[2021-02-01] MEDS: Albumin 25% 25 GM/100 ML BOT IVPB SCH ×3 (09:11→21:07)
[2021-02-01] MEDS: Sodium Chloride 0.45% 1,000 ML IV SCH ×2 (09:15→22:32)
[2021-02-01] MEDS: Enoxaparin Sodium 40 MG/0.4 ML SYRINGE SC SCH (21:07)
[2021-02-01] MEDS: [UNRECOGNIZED DRUG - OTHER] IV SCH (22:24)
[2021-02-01] MEDS: SODIUM ACETATE IV SCH (22:24)
[2021-02-01] MEDS: CALCIUM GLUCONATE IV SCH (22:24)
[2021-02-02] MEDS: Albumin 25% 25 GM/100 ML BOT IVPB SCH ×2 (04:39→09:50)
[2021-02-02 05:57] LABS: Hemoglobin 7.7 g/dL (12.0-16.0); Mean Corpuscular HGB CONC 34.5 g/dL (32.0-36.0); Mean Corpuscular Hemoglobin 30.6 pg (27.0-31.0); Mean Corpuscular Volume 88.7 fL (78.0-98.0); Mean Platelet Volume 9.8 fL (7.4-10.4); Platelet Count 214 thou/uL (130-400); RBC Distribution Width 14.5 % (11.5-14.5); Red Blood Cell (RBC) Count 2.51 mill/uL (4.20-5.40); White Blood Cell (WBC) Count 18.1 thou/uL (4.8-10.8)
[2021-02-02 06:19] LABS: ALT (SGPT) 30 U/L (8-55); AST (SGOT) 19 U/L (5-34); Albumin 3.4 g/dL (3.5-5.0); Alkaline Phosphatase 74 U/L (40-110); Anion Gap 16 mmol/L (10-20); BUN (Urea Nitrogen) 71 mg/dL (9.8-20.1); Bilirubin, Total 2.1 mg/dL (0.2-1.2); Calc. Creatinine Clearance 43 mL/min (70-130); Calcium 8.7 mg/dL (7.8-10.44); Carbon Dioxide 15 mmol/L (22-29); Chloride 102 mmol/L (98-107); Globulin 1.8 g/dL (2.4-3.5); Glucose 141 mg/dL (70-105); Magnesium 1.6 mg/dL (1.6-2.6); Potassium 3.1 mmol/L (3.5-5.1); Protein, Total 5.2 g/dL (6.0-8.3); Sodium 130 mmol/L (136-145)
[2021-02-02 06:31] LABS: Band 60 % (5-11); Eosinophils 1 % (0-10); Lymphocytes 11 % (21-51); MDiff Complete? YES; Metamyelocyte 2 % (0-0); Monocytes 5 % (0-10); Neutrophil 21 % (42-75); Toxic Granulation MODERATE
[2021-02-02] MEDS ORDERED: Fentanyl 100 MCG/2 ML VIAL ONE (06:45)
[2021-02-02] MEDS: Calcium Acetate 667 MG CAP PO SCH ×3 (09:02→17:17)
[2021-02-02] MEDS: Pantoprazole 40 MG VIAL IVP SCH (09:02)
[2021-02-02] MEDS ORDERED: Potassium Phosphate 30 MMOL in Sodium Chloride 0.9% 500 ML IVPB SCH (10:00)
[2021-02-02] MEDS: Sodium Chloride 0.45% 1,000 ML IV SCH (11:32)
[2021-02-02] MEDS: Enoxaparin Sodium 40 MG/0.4 ML SYRINGE SC SCH (21:05)
[2021-02-02] MEDS ORDERED: CALCIUM GLUCONATE IV SCH (22:00)
[2021-02-02] MEDS ORDERED: SODIUM ACETATE IV SCH (22:00)
[2021-02-02] MEDS ORDERED: [UNRECOGNIZED DRUG - OTHER] IV SCH (22:00)
[2021-02-03] MEDS: Sodium Chloride 0.45% 1,000 ML IV SCH ×2 (00:18→05:56)
[2021-02-03] MEDS: EPOETIN ALFA-EPBX (ESRD) 10,000 UNIT/ML VIAL SC SCH (00:19)
[2021-02-03] MEDS: Pantoprazole 40 MG VIAL IVP SCH (08:27)
[2021-02-03] MEDS: Calcium Acetate 667 MG CAP PO SCH ×3 (08:27→16:11)
[2021-02-03 11:42] LABS: SARS-CoV-2 PCR by NAA Not Detected (NotDetected)
[2021-02-03] MEDS ORDERED: Sodium Chloride 0.9% 1,000 ML IV SCH (13:00)
[2021-02-03] MEDS ORDERED: Albumin 25% 25 GM/100 ML BOT IVPB SCH (13:15)
[2021-02-03] MEDS: Metoclopramide 10 MG/10 ML UDCUP PER TUBE SCH ×3 (13:19→20:46)
[2021-02-03 13:47] LABS: Hemoglobin 9.5 g/dL (12.0-16.0); Mean Corpuscular HGB CONC 32.6 g/dL (32.0-36.0); Mean Corpuscular Hemoglobin 29.3 pg (27.0-31.0); Mean Platelet Volume 9.7 fL (7.4-10.4); Platelet Count 285 thou/uL (130-400); RBC Distribution Width 14.7 % (11.5-14.5); Red Blood Cell (RBC) Count 3.23 mill/uL (4.20-5.40); White Blood Cell (WBC) Count 20.5 thou/uL (4.8-10.8)
[2021-02-03 14:35] LABS: ALT (SGPT) 26 U/L (8-55); AST (SGOT) 15 U/L (5-34); Alkaline Phosphatase 86 U/L (40-110); Anion Gap 16 mmol/L (10-20); BUN (Urea Nitrogen) 74 mg/dL (9.8-20.1); Bilirubin, Total 2.3 mg/dL (0.2-1.2); Calc. Creatinine Clearance 41 mL/min (70-130); Calcium 8.3 mg/dL (7.8-10.44); Carbon Dioxide 18 mmol/L (22-29); Chloride 103 mmol/L (98-107); Globulin 2.1 g/dL (2.4-3.5); Glucose 139 mg/dL (70-105); Phosphorus 3.9 mg/dL (2.3-4.7); Potassium 3.5 mmol/L (3.5-5.1); Protein, Total 5.1 g/dL (6.0-8.3); Sodium 133 mmol/L (136-145)
[2021-02-03 14:39] LABS: Band 78 % (5-11); Lymphocytes 6 % (21-51); MDiff Complete? YES; Metamyelocyte 4 % (0-0); Monocytes 6 % (0-10); Myelocyte 1 % (0-0); Neutrophil 5 % (42-75); Platelet Morphology Comment Appears Adequate; Polychromasia MODERATE = 3-4 cells (100X) (0-2/hpf); Target Cells SLIGHT = 2-5 cells (100X) (0-1/hpf); Tear Drops SLIGHT = 2-5 cells (100X) (0-1/hpf); Toxic Granulation MODERATE
[2021-02-03] MEDS ORDERED: Ipratropium Bromide 0.06% Nasal Inhaler 15ml EA NARE SCH (16:15)
[2021-02-03] MEDS: Albumin 25% 25 GM/100 ML BOT IVPB SCH (18:32)
[2021-02-03] MEDS: Enoxaparin Sodium 40 MG/0.4 ML SYRINGE SC SCH (20:45)
[2021-02-03] MEDS: Ipratropium Bromide 0.06% Nasal Inhaler 15ml EA NARE SCH (20:46)
[2021-02-03] MEDS ORDERED: Lorazepam 2 MG/ML VIAL SLOW IVP PRN (21:34)
[2021-02-03] MEDS ORDERED: SODIUM ACETATE IV SCH (22:00)
[2021-02-03] MEDS ORDERED: CALCIUM GLUCONATE IV SCH (22:00)
[2021-02-03] MEDS ORDERED: [UNRECOGNIZED DRUG - OTHER] IV SCH (22:00)
[2021-02-04] MEDS: Albumin 25% 25 GM/100 ML BOT IVPB SCH ×4 (00:29→17:53)
[2021-02-04] MEDS: Sodium Chloride 0.45% 1,000 ML IV SCH (00:30)
[2021-02-04 06:01] LABS: Hemoglobin 7.2 g/dL (12.0-16.0); Mean Corpuscular Hemoglobin 33.1 pg (27.0-31.0); Mean Corpuscular Volume 97.2 fL (78.0-98.0); Mean Platelet Volume 10.1 fL (7.4-10.4); Platelet Count 198 thou/uL (130-400); RBC Distribution Width 15.1 % (11.5-14.5); Red Blood Cell (RBC) Count 2.19 mill/uL (4.20-5.40); White Blood Cell (WBC) Count 13.4 thou/uL (4.8-10.8)
[2021-02-04 07:22] LABS: Albumin 3.5 g/dL (3.5-5.0)
[2021-02-04 07:23] LABS: Chloride 105 mmol/L (98-107); Potassium 3.5 mmol/L (3.5-5.1); Sodium 135 mmol/L (136-145)
[2021-02-04 07:24] LABS: Calcium 8.2 mg/dL (7.8-10.44)
[2021-02-04 07:25] LABS: Globulin 1.8 g/dL (2.4-3.5); Glucose 101 mg/dL (70-105); Protein, Total 5.3 g/dL (6.0-8.3)
[2021-02-04 07:26] LABS: Anion Gap 19 mmol/L (10-20); Carbon Dioxide 15 mmol/L (22-29)
[2021-02-04 07:28] LABS: Alkaline Phosphatase 64 U/L (40-110); Calc. Creatinine Clearance 60 mL/min (70-130); Phosphorus 4.3 mg/dL (2.3-4.7)
[2021-02-04 07:29] LABS: BUN (Urea Nitrogen) 74 mg/dL (9.8-20.1)
[2021-02-04 07:30] LABS: ALT (SGPT) 20 U/L (8-55); AST (SGOT) 14 U/L (5-34); Magnesium 1.5 mg/dL (1.6-2.6)
[2021-02-04 08:30] LABS: Band 51 % (5-11); Lymphocytes 14 % (21-51); MDiff Complete? YES; Monocytes 4 % (0-10); Neutrophil 31 % (42-75); Toxic Granulation MODERATE; Vacuoles SLIGHT
[2021-02-04] MEDS ORDERED: Magnesium Sulfate 3 GM in Sodium Chloride 0.9% 100 ML IVPB SCH (09:30)
[2021-02-04] MEDS: Pantoprazole 40 MG VIAL IVP SCH (09:39)
[2021-02-04] MEDS: Metoclopramide 10 MG/10 ML UDCUP PER TUBE SCH ×4 (10:57→21:38)
[2021-02-04] MEDS: Calcium Acetate 667 MG CAP PO SCH ×3 (10:57→17:54)
[2021-02-04] MEDS ORDERED: Sodium Chloride 0.9% 1,000 ML IV SCH (16:00)
[2021-02-04] MEDS: Ipratropium Bromide 0.06% Nasal Inhaler 15ml EA NARE SCH ×2 (17:16→21:55)
[2021-02-04] MEDS: Sodium Chloride 0.9% 1,000 ML IV SCH (17:17)
[2021-02-04] MEDS: CALCIUM GLUCONATE IV SCH (21:55)
[2021-02-04] MEDS: [UNRECOGNIZED DRUG - OTHER] IV SCH (21:55)
[2021-02-04] MEDS: Lorazepam 2 MG/ML VIAL SLOW IVP PRN (21:55)
[2021-02-04] MEDS: SODIUM ACETATE IV SCH (21:55)
[2021-02-04] MEDS: Enoxaparin Sodium 40 MG/0.4 ML SYRINGE SC SCH (21:55)
[2021-02-05] MEDS: Albumin 25% 25 GM/100 ML BOT IVPB SCH ×4 (00:04→20:18)
[2021-02-05] MEDS: Sodium Chloride 0.45% 1,000 ML IV SCH (00:04)
[2021-02-05] MEDS: Sodium Chloride 0.9% 1,000 ML IV SCH ×2 (03:21→13:08)
[2021-02-05] MEDS: Calcium Acetate 667 MG CAP PO SCH ×3 (10:01→16:55)
[2021-02-05] MEDS: Pantoprazole 40 MG VIAL IVP SCH (10:02)
[2021-02-05] MEDS: Ipratropium Bromide 0.06% Nasal Inhaler 15ml EA NARE SCH ×2 (19:51→20:18)
[2021-02-05] MEDS: Enoxaparin Sodium 40 MG/0.4 ML SYRINGE SC SCH (20:18)
[2021-02-05] MEDS: SODIUM ACETATE IV SCH (21:59)
[2021-02-05] MEDS: [UNRECOGNIZED DRUG - OTHER] IV SCH (21:59)
[2021-02-05] MEDS: Lorazepam 2 MG/ML VIAL SLOW IVP PRN (21:59)
[2021-02-05] MEDS: CALCIUM GLUCONATE IV SCH (21:59)
[2021-02-06 05:35] LABS: Band 38 % (5-11); Hemoglobin 7.6 g/dL (12.0-16.0); Lymphocytes 18 % (21-51); MDiff Complete? YES; Mean Corpuscular Hemoglobin 30.4 pg (27.0-31.0); Mean Corpuscular Volume 89.4 fL (78.0-98.0); Mean Platelet Volume 8.9 fL (7.4-10.4); Metamyelocyte 1 % (0-0); Monocytes 6 % (0-10); Myelocyte 1 % (0-0); Neutrophil 36 % (42-75); Platelet Count 270 thou/uL (130-400); Platelet Morphology Comment Appears Adequate; RBC Distribution Width 15.1 % (11.5-14.5); Red Blood Cell (RBC) Count 2.48 mill/uL (4.20-5.40); White Blood Cell (WBC) Count 11.3 thou/uL (4.8-10.8)
[2021-02-06 05:40] LABS: ALT (SGPT) 23 U/L (8-55); AST (SGOT) 19 U/L (5-34); Albumin 4.1 g/dL (3.5-5.0); Alkaline Phosphatase 70 U/L (40-110); Anion Gap 14 mmol/L (10-20); BUN (Urea Nitrogen) 48 mg/dL (9.8-20.1); Bilirubin, Total 2.4 mg/dL (0.2-1.2); Calc. Creatinine Clearance 77 mL/min (70-130); Carbon Dioxide 19 mmol/L (22-29); Chloride 114 mmol/L (98-107); Globulin 1.8 g/dL (2.4-3.5); Glucose 124 mg/dL (70-105); Magnesium 2.3 mg/dL (1.6-2.6); Phosphorus 3.1 mg/dL (2.3-4.7); Potassium 3.7 mmol/L (3.5-5.1); Protein, Total 5.9 g/dL (6.0-8.3); Sodium 143 mmol/L (136-145)
[2021-02-06] MEDS: Sodium Chloride 0.9% 1,000 ML IV SCH ×3 (07:23→20:59)
[2021-02-06] MEDS: Calcium Acetate 667 MG CAP PO SCH ×3 (07:24→18:50)
[2021-02-06] MEDS: Pantoprazole 40 MG VIAL IVP SCH (08:41)
[2021-02-06] MEDS: Ipratropium Bromide 0.06% Nasal Inhaler 15ml EA NARE SCH ×2 (20:57→20:58)
[2021-02-06] MEDS: Enoxaparin Sodium 40 MG/0.4 ML SYRINGE SC SCH (21:00)
[2021-02-06] MEDS ORDERED: Sodium Chloride 0.9% 1,000 ML IV SCH (22:00)
[2021-02-06] MEDS: SODIUM ACETATE IV SCH (22:18)
[2021-02-06] MEDS: CALCIUM GLUCONATE IV SCH (22:18)
[2021-02-06] MEDS: [UNRECOGNIZED DRUG - OTHER] IV SCH (22:18)
[2021-02-07] MEDS: Lorazepam 2 MG/ML VIAL SLOW IVP PRN
[2021-02-07] MEDS: Sodium Chloride 0.9% 1,000 ML IV SCH ×3 (04:14→23:02)
[2021-02-07] MEDS: Calcium Acetate 667 MG CAP PO SCH ×3 (07:39→18:14)
[2021-02-07] MEDS: Pantoprazole 40 MG VIAL IVP SCH (10:13)
[2021-02-07] MEDS: EPOETIN ALFA-EPBX (ESRD) 10,000 UNIT/ML VIAL SC SCH (16:27)
[2021-02-07] MEDS: Ipratropium Bromide 0.06% Nasal Inhaler 15ml EA NARE SCH (22:21)
[2021-02-07] MEDS: [UNRECOGNIZED DRUG - OTHER] IV SCH (22:22)
[2021-02-07] MEDS: Enoxaparin Sodium 40 MG/0.4 ML SYRINGE SC SCH (22:22)
[2021-02-07] MEDS: SODIUM ACETATE IV SCH (22:22)
[2021-02-07] MEDS: CALCIUM GLUCONATE IV SCH (22:22)
[2021-02-08 07:11] LABS: Hemoglobin 8.5 g/dL (12.0-16.0); Mean Corpuscular HGB CONC 32.3 g/dL (32.0-36.0); Mean Corpuscular Hemoglobin 29.6 pg (27.0-31.0); Mean Corpuscular Volume 91.6 fL (78.0-98.0); Mean Platelet Volume 9.5 fL (7.4-10.4); Platelet Count 281 thou/uL (130-400); RBC Distribution Width 15.2 % (11.5-14.5); Red Blood Cell (RBC) Count 2.86 mill/uL (4.20-5.40)
[2021-02-08] MEDS: Pantoprazole 40 MG VIAL IVP SCH (08:10)
[2021-02-08] MEDS: Ipratropium Bromide 0.06% Nasal Inhaler 15ml EA NARE SCH ×3 (08:10→22:34)
[2021-02-08 09:30] LABS: Band 48 % (5-11); Lymphocytes 14 % (21-51); MDiff Complete? YES; Monocytes 8 % (0-10); Neutrophil 29 % (42-75); Platelet Morphology Comment Appears Adequate; Polychromasia SLIGHT = 2-3 cells (100X) (0-2/hpf); Reactive Lymphocytes 1 % (0-10)
[2021-02-08 10:03] LABS: ALT (SGPT) 35 U/L (8-55); AST (SGOT) 24 U/L (5-34); Albumin 3.2 g/dL (3.5-5.0); Alkaline Phosphatase 87 U/L (40-110); Anion Gap 14 mmol/L (10-20); BUN (Urea Nitrogen) 43 mg/dL (9.8-20.1); Bilirubin, Total 2.3 mg/dL (0.2-1.2); Calc. Creatinine Clearance 84 mL/min (70-130); Calcium 8.3 mg/dL (7.8-10.44); Carbon Dioxide 18 mmol/L (22-29); Chloride 121 mmol/L (98-107); Globulin 2.1 g/dL (2.4-3.5); Glucose 124 mg/dL (70-105); Magnesium 1.9 mg/dL (1.6-2.6); Phosphorus 3.7 mg/dL (2.3-4.7); Protein, Total 5.3 g/dL (6.0-8.3); Sodium 149 mmol/L (136-145)
[2021-02-08] MEDS: Calcium Acetate 667 MG CAP PO SCH ×3 (10:44→17:16)
[2021-02-08] MEDS: HumaLOG 300 UNITS/3 ML VIAL SC PRN (12:40)
[2021-02-08] MEDS: Sodium Chloride 0.9% 1,000 ML IV SCH ×2 (12:41→22:35)
[2021-02-08] MEDS ORDERED: Sodium Chloride 0.9% 1,000 ML IV SCH (12:45)
[2021-02-08] MEDS: Albumin 25% 25 GM/100 ML BOT IVPB SCH ×2 (17:18→23:24)
[2021-02-08] MEDS: Enoxaparin Sodium 40 MG/0.4 ML SYRINGE SC SCH (22:34)
[2021-02-08] MEDS: SODIUM ACETATE IV SCH (22:34)
[2021-02-08] MEDS: CALCIUM GLUCONATE IV SCH (22:34)
[2021-02-08] MEDS: [UNRECOGNIZED DRUG - OTHER] IV SCH (22:34)
[2021-02-09] MEDS: Albumin 25% 25 GM/100 ML BOT IVPB SCH ×3 (04:07→16:56)
[2021-02-09] MEDS ORDERED: EPINEPHrine 1 MG/ML AMP ONE (07:02)
[2021-02-09] MEDS ORDERED: Fentanyl 100 MCG/2 ML VIAL ONE ×2 (07:12→09:37)
[2021-02-09] MEDS ORDERED: Midazolam HCl 2 mg/2 ml Vial ONE (07:12)
[2021-02-09] MEDS ORDERED: Dexmedetomidine 200 MCG/2 ML VIAL ONE (07:13)
[2021-02-09] MEDS ORDERED: Ketamine 50 MG/ML (10ML VIAL) ONE (07:13)
[2021-02-09] MEDS ORDERED: SUGAMMADEX SODIUM 200 MG/2 ML VIAL ONE (07:16)
[2021-02-09] MEDS ORDERED: Propofol 500 MG/50 ML VIAL ONE (08:25)
[2021-02-09] MEDS ORDERED: Naloxone HCl 0.4 mg/ml Vial ONE ×2 (08:53→09:55)
[2021-02-09] MEDS ORDERED: Lidocaine 1% PF 5 ML VIAL ONE ×2 (08:53)
[2021-02-09] MEDS ORDERED: Esmolol 100 MG/10 ML VIAL ONE (08:53)
[2021-02-09] MEDS ORDERED: Rocuronium Bromide 10 MG/ML (10ML VIAL) ONE (08:53)
[2021-02-09] MEDS ORDERED: Ondansetron PF 4 MG/2 ML Vial ONE (08:53)
[2021-02-09] MEDS ORDERED: PROPOFOL 200 MG/20 ML VIAL ONE (08:53)
[2021-02-09] MEDS ORDERED: Dexamethasone 20 MG/5 ML VIAL ONE (08:53)
[2021-02-09 09:12] LABS: ALT (SGPT) 31 U/L (8-55); AST (SGOT) 21 U/L (5-34); Albumin 3.6 g/dL (3.5-5.0); Alkaline Phosphatase 70 U/L (40-110); Anion Gap 15 mmol/L (10-20); BUN (Urea Nitrogen) 29 mg/dL (9.8-20.1); Bilirubin, Total 1.7 mg/dL (0.2-1.2); Calc. Creatinine Clearance 98 mL/min (70-130); Calcium 8.6 mg/dL (7.8-10.44); Carbon Dioxide 18 mmol/L (22-29); Chloride 121 mmol/L (98-107); Globulin 1.7 g/dL (2.4-3.5); Glucose 112 mg/dL (70-105); Magnesium 1.9 mg/dL (1.6-2.6); Phosphorus 3.3 mg/dL (2.3-4.7); Potassium 3.7 mmol/L (3.5-5.1); Protein, Total 5.3 g/dL (6.0-8.3); Sodium 150 mmol/L (136-145)
[2021-02-09] MEDS ORDERED: HYDROmorphone 2 MG/ML VIAL SLOW IVP PRN (10:17)
[2021-02-09] MEDS ORDERED: Ondansetron HCl/PF 4 MG/2 ML Vial IVP PRN (10:17)
[2021-02-09] MEDS ORDERED: Promethazine HCl 25 MG/ML VIAL IVPB PRN (10:17)
[2021-02-09] MEDS ORDERED: Ketorolac Tromethamine 30 MG/ML VIAL IVP PRN (10:17)
[2021-02-09] MEDS: Calcium Acetate 667 MG CAP PO SCH ×2 (11:58→16:46)
[2021-02-09] MEDS: Pantoprazole 40 MG VIAL IVP SCH (12:21)
[2021-02-09] MEDS: Sodium Chloride 0.9% 1,000 ML IV SCH (12:21)
[2021-02-09] MEDS: Ipratropium Bromide 0.06% Nasal Inhaler 15ml EA NARE SCH (12:21)
[2021-02-09] MEDS: Sodium Chloride 0.45% 1,000 ML IV SCH ×2 (16:45→22:14)
[2021-02-09] MEDS: Metoclopramide HCl 10 MG/2 ML VIAL IVP SCH ×2 (16:53→22:13)
[2021-02-09] MEDS ORDERED: [UNRECOGNIZED DRUG - OTHER] IV SCH (22:00)
[2021-02-09] MEDS ORDERED: SODIUM ACETATE IV SCH (22:00)
[2021-02-09] MEDS ORDERED: CALCIUM GLUCONATE IV SCH (22:00)
[2021-02-09] MEDS: Enoxaparin Sodium 40 MG/0.4 ML SYRINGE SC SCH (22:13)
[2021-02-10] MEDS: Ipratropium Bromide 0.06% Nasal Inhaler 15ml EA NARE SCH ×3 (03:19→21:07)
[2021-02-10] MEDS: [UNRECOGNIZED DRUG - OTHER] IV SCH (03:25)
[2021-02-10] MEDS: CALCIUM GLUCONATE IV SCH (03:25)
[2021-02-10] MEDS: SODIUM ACETATE IV SCH (03:25)
[2021-02-10] MEDS: Metoclopramide HCl 10 MG/2 ML VIAL IVP SCH ×3 (05:50→21:07)
[2021-02-10] MEDS: Sodium Chloride 0.9% 1,000 ML IV SCH (05:51)
[2021-02-10] MEDS: Sodium Chloride 0.45% 1,000 ML IV SCH ×3 (05:53→22:24)
[2021-02-10] MEDS: Pantoprazole 40 MG VIAL IVP SCH (09:56)
[2021-02-10] MEDS: Calcium Acetate 667 MG CAP PO SCH ×3 (09:56→17:14)
[2021-02-10] MEDS ORDERED: Sodium Chloride 0.45% 1,000 ML IV SCH (13:30)
[2021-02-10] MEDS: Albumin 25% 25 GM/100 ML BOT IVPB SCH (17:15)
[2021-02-10] MEDS: Enoxaparin Sodium 40 MG/0.4 ML SYRINGE SC SCH (21:07)
[2021-02-10] MEDS ORDERED: CALCIUM GLUCONATE IV SCH (22:00)
[2021-02-10] MEDS ORDERED: SODIUM ACETATE IV SCH (22:00)
[2021-02-10] MEDS ORDERED: [UNRECOGNIZED DRUG - OTHER] IV SCH (22:00)
[2021-02-11] MEDS: Albumin 25% 25 GM/100 ML BOT IVPB SCH ×4 (00:08→17:11)
[2021-02-11] MEDS: Sodium Chloride 0.45% 1,000 ML IV SCH ×3 (02:32→14:14)
[2021-02-11] MEDS: Metoclopramide HCl 10 MG/2 ML VIAL IVP SCH ×3 (05:37→21:15)
[2021-02-11 06:11] LABS: INR-International Normal Ratio 1.5; PTT 32.3 sec (22.9-36.1); Prothrombin Time 18.3 sec (12.0-14.7)
[2021-02-11 06:26] LABS: ALT (SGPT) 46 U/L (8-55); AST (SGOT) 23 U/L (5-34); Albumin 3.3 g/dL (3.5-5.0); Alkaline Phosphatase 63 U/L (40-110); Anion Gap 11 mmol/L (10-20); BUN (Urea Nitrogen) 25 mg/dL (9.8-20.1); Bilirubin, Total 1.6 mg/dL (0.2-1.2); Calc. Creatinine Clearance 93 mL/min (70-130); Calcium 8.2 mg/dL (7.8-10.44); Carbon Dioxide 18 mmol/L (22-29); Chloride 118 mmol/L (98-107); Globulin 1.5 g/dL (2.4-3.5); Glucose 125 mg/dL (70-105); Magnesium 1.7 mg/dL (1.6-2.6); Phosphorus 2.6 mg/dL (2.3-4.7); Potassium 3.4 mmol/L (3.5-5.1); Protein, Total 4.8 g/dL (6.0-8.3); Sodium 144 mmol/L (136-145)
[2021-02-11 06:33] LABS: Hemoglobin 6.4 g/dL (12.0-16.0); Mean Corpuscular HGB CONC 32.3 g/dL (32.0-36.0); Mean Corpuscular Hemoglobin 29.6 pg (27.0-31.0); Mean Corpuscular Volume 91.7 fL (78.0-98.0); Mean Platelet Volume 9.8 fL (7.4-10.4); Platelet Count 192 thou/uL (130-400); RBC Distribution Width 15.9 % (11.5-14.5); Red Blood Cell (RBC) Count 2.15 mill/uL (4.20-5.40); White Blood Cell (WBC) Count 6.6 thou/uL (4.8-10.8)
[2021-02-11 07:58] LABS: Band 62 % (5-11); Dohle Bodies MODERATE; Eosinophils 1 % (0-10); Lymphocytes 15 % (21-51); MDiff Complete? YES; Monocytes 6 % (0-10); Neutrophil 16 % (42-75); Platelet Morphology Comment Appears Adequate; Polychromasia SLIGHT = 2-3 cells (100X) (0-2/hpf); Toxic Granulation SLIGHT; Vacuoles SLIGHT
[2021-02-11] MEDS ORDERED: Potassium ACETATE 40 MEQ/20 ML VIAL IV SCH (09:00)
[2021-02-11] MEDS: Ipratropium Bromide 0.06% Nasal Inhaler 15ml EA NARE SCH ×2 (09:11→21:16)
[2021-02-11] MEDS: Pantoprazole 40 MG VIAL IVP SCH (09:11)
[2021-02-11] MEDS ORDERED: Potassium ACETATE 40 MEQ in Sodium Chloride 0.9% 250 ML 250 ML IV SCH (10:00)
[2021-02-11] MEDS: Enoxaparin Sodium 40 MG/0.4 ML SYRINGE SC SCH (21:14)
[2021-02-11] MEDS ORDERED: POTASSIUM ACETATE IV SCH (22:00)
[2021-02-11] MEDS ORDERED: [UNRECOGNIZED DRUG - OTHER] IV SCH (22:00)
[2021-02-11] MEDS ORDERED: SODIUM ACETATE IV SCH (22:00)
[2021-02-12] MEDS: Sodium Chloride 0.45% 1,000 ML IV SCH ×4 (01:45→21:40)
[2021-02-12 06:03] LABS: Hemoglobin 9.2 g/dL (12.0-16.0); Mean Corpuscular HGB CONC 34.1 g/dL (32.0-36.0); Mean Corpuscular Hemoglobin 30.9 pg (27.0-31.0); Mean Corpuscular Volume 90.6 fL (78.0-98.0); Mean Platelet Volume 10.2 fL (7.4-10.4); Platelet Count 148 thou/uL (130-400); RBC Distribution Width 14.5 % (11.5-14.5); Red Blood Cell (RBC) Count 2.99 mill/uL (4.20-5.40); White Blood Cell (WBC) Count 6.4 thou/uL (4.8-10.8)
[2021-02-12] MEDS: Metoclopramide HCl 10 MG/2 ML VIAL IVP SCH ×3 (06:09→21:40)
[2021-02-12 06:14] LABS: Anion Gap 13 mmol/L (10-20); BUN (Urea Nitrogen) 25 mg/dL (9.8-20.1); Calc. Creatinine Clearance 94 mL/min (70-130); Calcium 8.6 mg/dL (7.8-10.44); Carbon Dioxide 21 mmol/L (22-29); Chloride 112 mmol/L (98-107); Glucose 112 mg/dL (70-105); Potassium 3.9 mmol/L (3.5-5.1); Sodium 142 mmol/L (136-145)
[2021-02-12 07:11] LABS: Phosphorus 2.5 mg/dL (2.3-4.7)
[2021-02-12 07:12] LABS: Magnesium 1.6 mg/dL (1.6-2.6)
[2021-02-12] MEDS: Ipratropium Bromide 0.06% Nasal Inhaler 15ml EA NARE SCH ×3 (09:00→23:12)
[2021-02-12 10:16] LABS: Band 51 % (5-11); Bite Cells SLIGHT = 2-5 cells (100X) (0-1/hpf); Hypochromia SLIGHT = 6-15 cells (100X) (0-5/hpf); Lymphocytes 14 % (21-51); MDiff Complete? YES; Metamyelocyte 1 % (0-0); Monocytes 5 % (0-10); Neutrophil 29 % (42-75); Platelet Morphology Comment Appears Adequate; Polychromasia SLIGHT = 2-3 cells (100X) (0-2/hpf)
[2021-02-12] MEDS: Pantoprazole 40 MG VIAL IVP SCH (10:38)
[2021-02-12] MEDS ORDERED: Dextrose 5% in Water 1,000 ML IV SCH (15:15)
[2021-02-12] MEDS: Albumin 25% 25 GM/100 ML BOT IVPB SCH (17:31)
[2021-02-12 20:28] LABS: Mean Corpuscular HGB CONC 33.7 g/dL (32.0-36.0); Mean Corpuscular Hemoglobin 30.2 pg (27.0-31.0); Mean Corpuscular Volume 89.6 fL (78.0-98.0); Mean Platelet Volume 10.3 fL (7.4-10.4); Platelet Count 141 thou/uL (130-400); RBC Distribution Width 14.4 % (11.5-14.5); Red Blood Cell (RBC) Count 2.99 mill/uL (4.20-5.40); White Blood Cell (WBC) Count 6.6 thou/uL (4.8-10.8)
[2021-02-12 20:39] LABS: Bacteria/HPF 4+ HPF (None Seen); Bilirubin Negative (Negative); Blood, Urine Negative (Negative); Glucose, Urine (Dipstick) 300 mg/dL (Negative); Ketone, Urine Negative (Negative); Leukocyte Negative Leu/uL (Negative); Nitrite Negative (Negative); Protein, Urine (Dipstick) 200 mg/dL (Neg-Trace); RBC/HPF 0-3 HPF (0-3); Specific Gravity, Urine 1.019 (1.002-1.036); Urobilinogen Normal mg/dL (Less than 2)
[2021-02-12 20:40] LABS: Clarity Cloudy (Clear)
[2021-02-12 20:48] LABS: Band 47 % (5-11); Dohle Bodies SLIGHT; Eosinophils 2 % (0-10); Lymphocytes 19 % (21-51); MDiff Complete? YES; Metamyelocyte 1 % (0-0); Monocytes 4 % (0-10); Neutrophil 27 % (42-75); Platelet Morphology Comment Appears Adequate; Schistocytes SLIGHT = 2-5 cells (100X) (0-1/hpf); Toxic Granulation SLIGHT; Vacuoles SLIGHT
[2021-02-12 21:05] LABS: SARS-CoV-2 PCR by NAA Not Detected (NotDetected)
[2021-02-12 21:12] LABS: Free T4 (Free Thyroxine) 0.96 ng/dL (0.70-1.48); Free Thyroxine Index 1.83 (1.4-3.1)
[2021-02-12] MEDS: Loratadine 10 MG TAB PO PRN (21:40)
[2021-02-12] MEDS: Enoxaparin Sodium 40 MG/0.4 ML SYRINGE SC SCH (21:40)
[2021-02-12] MEDS ORDERED: SODIUM ACETATE IV SCH (22:00)
[2021-02-12] MEDS ORDERED: FAT EMULSION IV SCH (22:00)
[2021-02-12] MEDS ORDERED: [UNRECOGNIZED DRUG - OTHER] IV SCH (22:00)
[2021-02-12] MEDS ORDERED: POTASSIUM ACETATE IV SCH (22:00)
[2021-02-12] MEDS ORDERED: Piperacillin/Tazobactam 3.375 GM in Sodium Chloride 0.9% 100 ML IVPB SCH (23:45)
[2021-02-13] MEDS: Piperacillin/Tazobactam 3.375 GM in Sodium Chloride 0.9% 100 ML IVPB SCH ×4 (00:37→20:50)
[2021-02-13] MEDS: Albumin 25% 25 GM/100 ML BOT IVPB SCH ×4 (00:37→18:26)
[2021-02-13] MEDS: Metoclopramide HCl 10 MG/2 ML VIAL IVP SCH (05:29)
[2021-02-13 06:22] LABS: Band 63 % (5-11); Hemoglobin 8.5 g/dL (12.0-16.0); Lymphocytes 13 % (21-51); MDiff Complete? YES; Mean Corpuscular HGB CONC 33.7 g/dL (32.0-36.0); Mean Corpuscular Hemoglobin 30.4 pg (27.0-31.0); Mean Corpuscular Volume 90.2 fL (78.0-98.0); Mean Platelet Volume 10.5 fL (7.4-10.4); Metamyelocyte 1 % (0-0); Monocytes 1 % (0-10); Myelocyte 1 % (0-0); Neutrophil 21 % (42-75); Platelet Count 108 thou/uL (130-400); Platelet Morphology Comment Appears Decreased; RBC Distribution Width 14.3 % (11.5-14.5); Red Blood Cell (RBC) Count 2.78 mill/uL (4.20-5.40); Toxic Granulation SLIGHT; Vacuoles SLIGHT; White Blood Cell (WBC) Count 6.7 thou/uL (4.8-10.8)
[2021-02-13 06:23] LABS: ALT (SGPT) 44 U/L (8-55); AST (SGOT) 31 U/L (5-34); Albumin 3.6 g/dL (3.5-5.0); Alkaline Phosphatase 59 U/L (40-110); Anion Gap 15 mmol/L (10-20); BUN (Urea Nitrogen) 32 mg/dL (9.8-20.1); Bilirubin, Total 4.8 mg/dL (0.2-1.2); Calc. Creatinine Clearance 79 mL/min (70-130); Calcium 8.4 mg/dL (7.8-10.44); Carbon Dioxide 19 mmol/L (22-29); Chloride 103 mmol/L (98-107); Globulin 1.5 g/dL (2.4-3.5); Glucose 113 mg/dL (70-105); Magnesium 1.5 mg/dL (1.6-2.6); Phosphorus 2.6 mg/dL (2.3-4.7); Potassium 4.2 mmol/L (3.5-5.1); Protein, Total 5.1 g/dL (6.0-8.3); Sodium 133 mmol/L (136-145)
[2021-02-13] MEDS ORDERED: Sodium Phosphate 30 MMOL in Sodium Chloride 0.9% 250 ML 250 ML IVPB SCH (08:15)
[2021-02-13] MEDS ORDERED: Magnesium Sulfate 4 GM in Sodium Chloride 0.9% 250 ML 250 ML IVPB SCH (08:30)
[2021-02-13] MEDS: Pantoprazole 40 MG VIAL IVP SCH (09:51)
[2021-02-13] MEDS: Sodium Chloride 0.45% 1,000 ML IV SCH ×3 (09:53→23:41)
[2021-02-13] MEDS: Ipratropium Bromide 0.06% Nasal Inhaler 15ml EA NARE SCH ×2 (09:53→21:01)
[2021-02-13 09:59] LABS: Lactic Acid 2.4 mmol/L (0.5-2.2)
[2021-02-13 10:07] LABS: Troponin I Less than 0.010 ng/mL (< 0.028)
[2021-02-13] MEDS ORDERED: Iopamidol-370 76% 500 ML 1 ML ONE (11:06)
[2021-02-13] MEDS ORDERED: Lactated Ringer's 1,000 ML IV SCH ×2 (13:00→15:30)
[2021-02-13] MEDS ORDERED: Fluconazole In NaCl,Iso-Osm 200 MG in Premix Bag 1 BAG IVPB SCH ×2 (13:15→22:00)
[2021-02-13] MEDS ORDERED: Vancomycin 1.5 GRAM/300 ML BAG 1.5 GM in Premix Bag 1 BAG IVPB SCH (19:15)
[2021-02-13] MEDS: Enoxaparin Sodium 40 MG/0.4 ML SYRINGE SC SCH (20:51)
[2021-02-13] MEDS: SODIUM ACETATE IV SCH (22:05)
[2021-02-13] MEDS: [UNRECOGNIZED DRUG - OTHER] IV SCH (22:05)
[2021-02-13] MEDS: POTASSIUM ACETATE IV SCH (22:05)
[2021-02-13 22:50] LABS: Bacteria/HPF 4+ HPF (None Seen); Bilirubin Negative (Negative); Blood, Urine Trace (Negative); Clarity Clear (Clear); Glucose, Urine (Dipstick) Normal (Negative); Ketone, Urine Negative (Negative); Leukocyte 25 Leu/uL (Negative); Nitrite Negative (Negative); Protein, Urine (Dipstick) 50 mg/dL (Neg-Trace); Specific Gravity, Urine 1.037 (1.002-1.036); Squamous Epithelial 0-3 HPF (0-3); Urobilinogen Normal mg/dL (Less than 2); pH, Urine 5.5 (5.0-9.0)
[2021-02-13 22:52] LABS: Urine Culture Reflex Yes Yes
[2021-02-14] MEDS: Piperacillin/Tazobactam 3.375 GM in Sodium Chloride 0.9% 100 ML IVPB SCH ×3 (05:26→21:09)
[2021-02-14 06:02] LABS: Hemoglobin 7.1 g/dL (12.0-16.0); Mean Corpuscular HGB CONC 33.5 g/dL (32.0-36.0); Mean Corpuscular Hemoglobin 30.2 pg (27.0-31.0); Mean Corpuscular Volume 89.9 fL (78.0-98.0); Mean Platelet Volume 11.3 fL (7.4-10.4); Platelet Count 104 thou/uL (130-400); RBC Distribution Width 14.3 % (11.5-14.5); Red Blood Cell (RBC) Count 2.35 mill/uL (4.20-5.40); White Blood Cell (WBC) Count 8.6 thou/uL (4.8-10.8)
[2021-02-14 06:13] LABS: Lactic Acid 1.9 mmol/L (0.5-2.2)
[2021-02-14 06:21] LABS: ALT (SGPT) 36 U/L (8-55); AST (SGOT) 24 U/L (5-34); Albumin 3.3 g/dL (3.5-5.0); Alkaline Phosphatase 52 U/L (40-110); Anion Gap 16 mmol/L (10-20); BUN (Urea Nitrogen) 32 mg/dL (9.8-20.1); Bilirubin, Total 1.9 mg/dL (0.2-1.2); Calc. Creatinine Clearance 80 mL/min (70-130); Carbon Dioxide 20 mmol/L (22-29); Chloride 102 mmol/L (98-107); Globulin 1.6 g/dL (2.4-3.5); Glucose 117 mg/dL (70-105); Magnesium 2.5 mg/dL (1.6-2.6); Phosphorus 3.5 mg/dL (2.3-4.7); Potassium 3.9 mmol/L (3.5-5.1); Protein, Total 4.9 g/dL (6.0-8.3); Sodium 134 mmol/L (136-145)
[2021-02-14 06:42] LABS: Band 30 % (5-11); Eosinophils 2 % (0-10); Lymphocytes 23 % (21-51); MDiff Complete? YES; Monocytes 1 % (0-10); Neutrophil 44 % (42-75); Platelet Morphology Comment Appears Decreased
[2021-02-14] MEDS ORDERED: Vancomycin 1 GM in Premix Bag 1 BAG IVPB SCH (08:00)
[2021-02-14] MEDS: Ipratropium Bromide 0.06% Nasal Inhaler 15ml EA NARE SCH ×2 (09:06→21:09)
[2021-02-14] MEDS: Pantoprazole 40 MG VIAL IVP SCH (09:06)
[2021-02-14] MEDS: Sodium Chloride 0.45% 1,000 ML IV SCH ×3 (09:07→21:13)
[2021-02-14] MEDS ORDERED: Potassium Phosphate 15 MMOL in Sodium Chloride 0.9% 250 ML 250 ML IVPB SCH (09:45)
[2021-02-14] MEDS: Fluconazole In NaCl,Iso-Osm 200 MG in Premix Bag 1 BAG IVPB SCH (11:30)
[2021-02-14] MEDS: Loratadine 10 MG TAB PO PRN (18:53)
[2021-02-14] MEDS: SODIUM ACETATE IV SCH (23:03)
[2021-02-14] MEDS: [UNRECOGNIZED DRUG - OTHER] IV SCH (23:03)
[2021-02-14] MEDS: POTASSIUM ACETATE IV SCH (23:03)
[2021-02-15] MEDS: Enoxaparin Sodium 40 MG/0.4 ML SYRINGE SC SCH ×2 (00:27→22:26)
[2021-02-15] MEDS: Lorazepam 2 MG/ML VIAL SLOW IVP PRN (01:46)
[2021-02-15] MEDS: Piperacillin/Tazobactam 3.375 GM in Sodium Chloride 0.9% 100 ML IVPB SCH ×3 (06:13→22:03)
[2021-02-15] MEDS: Sodium Chloride 0.45% 1,000 ML IV SCH ×3 (06:13→22:26)
[2021-02-15 06:36] LABS: Hemoglobin 7.3 g/dL (12.0-16.0); Mean Corpuscular HGB CONC 33.4 g/dL (32.0-36.0); Mean Corpuscular Hemoglobin 28.1 pg (27.0-31.0); Mean Platelet Volume 11.5 fL (7.4-10.4); Platelet Count 113 thou/uL (130-400); Red Blood Cell (RBC) Count 2.61 mill/uL (4.20-5.40)
[2021-02-15 07:05] LABS: Anion Gap 14 mmol/L (10-20); BUN (Urea Nitrogen) 24 mg/dL (9.8-20.1); Calc. Creatinine Clearance 90 mL/min (70-130); Calcium 8.1 mg/dL (7.8-10.44); Carbon Dioxide 22 mmol/L (22-29); Chloride 101 mmol/L (98-107); Glucose 97 mg/dL (70-105); Phosphorus 2.7 mg/dL (2.3-4.7); Potassium 4.8 mmol/L (3.5-5.1); Sodium 132 mmol/L (136-145)
[2021-02-15 07:33] LABS: Vancomycin, Trough 4.8 ug/mL
[2021-02-15 07:40] LABS: Anisocytosis MODERATE=16-30 cells (100X) (0-5/hpf); Band 26 % (5-11); Eosinophils 4 % (0-10); Lymphocytes 16 % (21-51); MDiff Complete? YES; Metamyelocyte 1 % (0-0); Monocytes 3 % (0-10); Myelocyte 1 % (0-0); Neutrophil 49 % (42-75); Ovalocytes SLIGHT = 2-5 cells (100X) (0-1/hpf); Platelet Morphology Comment Appears Decreased; Polychromasia SLIGHT = 2-3 cells (100X) (0-2/hpf); Schistocytes SLIGHT = 2-5 cells (100X) (0-1/hpf)
[2021-02-15] MEDS: Pantoprazole 40 MG VIAL IVP SCH (08:40)
[2021-02-15] MEDS: Fluconazole In NaCl,Iso-Osm 200 MG in Premix Bag 1 BAG IVPB SCH (08:40)
[2021-02-15] MEDS: Ipratropium Bromide 0.06% Nasal Inhaler 15ml EA NARE SCH ×2 (08:45→22:04)
[2021-02-15] MEDS ORDERED: Lorazepam 2 MG/ML VIAL SLOW IVP PRN (14:57)
[2021-02-15] MEDS ORDERED: SODIUM ACETATE IV SCH (22:00)
[2021-02-15] MEDS ORDERED: FAT EMULSION IV SCH (22:00)
[2021-02-15] MEDS ORDERED: POTASSIUM ACETATE IV SCH (22:00)
[2021-02-15] MEDS ORDERED: [UNRECOGNIZED DRUG - OTHER] IV SCH (22:00)
[2021-02-15 22:02] LABS: Hemoglobin 6.8 g/dL (12.0-16.0); Mean Corpuscular HGB CONC 33.1 g/dL (32.0-36.0); Mean Corpuscular Volume 84.5 fL (78.0-98.0); Mean Platelet Volume 11.4 fL (7.4-10.4); Platelet Count 128 thou/uL (130-400); Red Blood Cell (RBC) Count 2.42 mill/uL (4.20-5.40); White Blood Cell (WBC) Count 10.1 thou/uL (4.8-10.8)
[2021-02-15 22:37] LABS: Band 40 % (5-11); Eosinophils 2 % (0-10); Lymphocytes 33 % (21-51); MDiff Complete? YES; Monocytes 2 % (0-10); Myelocyte 2 % (0-0); Neutrophil 21 % (42-75)
[2021-02-16] MEDS: Piperacillin/Tazobactam 3.375 GM in Sodium Chloride 0.9% 100 ML IVPB SCH ×3 (05:22→20:11)
[2021-02-16 06:58] LABS: Hemoglobin 9.5 g/dL (12.0-16.0); Mean Corpuscular HGB CONC 33.2 g/dL (32.0-36.0); Mean Corpuscular Hemoglobin 28.3 pg (27.0-31.0); Mean Corpuscular Volume 85.3 fL (78.0-98.0); Mean Platelet Volume 11.2 fL (7.4-10.4); Platelet Count 132 thou/uL (130-400); RBC Distribution Width 17.5 % (11.5-14.5); Red Blood Cell (RBC) Count 3.37 mill/uL (4.20-5.40); White Blood Cell (WBC) Count 14.4 thou/uL (4.8-10.8)
[2021-02-16] MEDS: Fluconazole In NaCl,Iso-Osm 200 MG in Premix Bag 1 BAG IVPB SCH (08:04)
[2021-02-16] MEDS: Pantoprazole 40 MG VIAL IVP SCH (08:04)
[2021-02-16] MEDS: Sodium Chloride 0.45% 1,000 ML IV SCH ×3 (08:06→20:11)
[2021-02-16] MEDS: Ipratropium Bromide 0.06% Nasal Inhaler 15ml EA NARE SCH ×2 (08:06→20:10)
[2021-02-16 09:17] LABS: Band 56 % (5-11); Differential Comment Plasma-cytoid Cells; Eosinophils 1 % (0-10); Hypochromia SLIGHT = 6-15 cells (100X) (0-5/hpf); Lymphocytes 15 % (21-51); MDiff Complete? YES; Monocytes 8 % (0-10); Myelocyte 3 % (0-0); Neutrophil 16 % (42-75); Platelet Morphology Comment Appears Adequate; Polychromasia SLIGHT = 2-3 cells (100X) (0-2/hpf); Reflex for Review?? NO
[2021-02-16] MEDS ORDERED: Propofol 500 MG/50 ML VIAL ONE (10:20)
[2021-02-16] MEDS ORDERED: Ketamine 50 MG/ML (10ML VIAL) ONE (10:20)
[2021-02-16] MEDS ORDERED: Sodium Chloride 0.9% 20 ML ONE (11:20)
[2021-02-16] MEDS ORDERED: Bupivacaine PF 0.5% 30 ML VIAL ONE (11:20)
[2021-02-16] MEDS ORDERED: Heparin 10,000 UNITS/ 10 ML VIAL ONE (11:20)
[2021-02-16] MEDS ORDERED: Lidocaine 1% w/Epinephrine 1:100K 20 ML VIAL ONE (11:20)
[2021-02-16] MEDS ORDERED: Midazolam HCl 2 mg/2 ml Vial ONE (11:39)
[2021-02-16] MEDS ORDERED: PHENYLEPHRINE-NS 100 MCG/ML 10 ML SYRINGE ONE (12:40)
[2021-02-16 15:11] LABS: ALT (SGPT) 23 U/L (8-55); AST (SGOT) 22 U/L (5-34); Albumin 2.6 g/dL (3.5-5.0); Alkaline Phosphatase 102 U/L (40-110); Anion Gap 15 mmol/L (10-20); BUN (Urea Nitrogen) 23 mg/dL (9.8-20.1); Bilirubin, Total 3.3 mg/dL (0.2-1.2); Calc. Creatinine Clearance 80 mL/min (70-130); Calcium 7.8 mg/dL (7.8-10.44); Carbon Dioxide 22 mmol/L (22-29); Chloride 98 mmol/L (98-107); Globulin 2.1 g/dL (2.4-3.5); Glucose 394 mg/dL (70-105); Magnesium 2.1 mg/dL (1.6-2.6); Phosphorus 3.7 mg/dL (2.3-4.7); Protein, Total 4.7 g/dL (6.0-8.3); Sodium 129 mmol/L (136-145)
[2021-02-16] MEDS ORDERED: Dextrose 10% in Water 1,000 ML IV SCH (17:00)
[2021-02-16] MEDS ORDERED: Dextrose 50% Abboject 50 ML SYRINGE SLOW IVP PRN (18:33)
[2021-02-16] MEDS ORDERED: Insulin Regular 300 UNITS/3 ML VIAL IVP SCH (18:45)
[2021-02-16] MEDS ORDERED: Sodium Bicarb 50 MEQ/50 ML Abboject 8.4% SYRINGE IVP SCH (18:45)
[2021-02-16] MEDS: Enoxaparin Sodium 40 MG/0.4 ML SYRINGE SC SCH (20:11)
[2021-02-16] MEDS: [UNRECOGNIZED DRUG - OTHER] IV SCH (22:12)
[2021-02-16] MEDS: SODIUM ACETATE IV SCH (22:12)
[2021-02-16] MEDS: CALCIUM GLUCONATE IV SCH (22:12)
[2021-02-17] MEDS: Piperacillin/Tazobactam 3.375 GM in Sodium Chloride 0.9% 100 ML IVPB SCH ×3 (06:02→20:53)
[2021-02-17] MEDS: Sodium Chloride 0.45% 1,000 ML IV SCH ×3 (06:03→21:50)
[2021-02-17 06:10] LABS: Hemoglobin 8.6 g/dL (12.0-16.0); Mean Corpuscular HGB CONC 33.7 g/dL (32.0-36.0); Mean Corpuscular Hemoglobin 29.2 pg (27.0-31.0); Mean Corpuscular Volume 86.6 fL (78.0-98.0); Mean Platelet Volume 10.6 fL (7.4-10.4); Platelet Count 163 thou/uL (130-400); RBC Distribution Width 17.6 % (11.5-14.5); Red Blood Cell (RBC) Count 2.93 mill/uL (4.20-5.40); White Blood Cell (WBC) Count 12.6 thou/uL (4.8-10.8)
[2021-02-17 06:24] LABS: ALT (SGPT) 27 U/L (8-55); AST (SGOT) 22 U/L (5-34); Albumin 2.5 g/dL (3.5-5.0); Alkaline Phosphatase 119 U/L (40-110); Anion Gap 12 mmol/L (10-20); BUN (Urea Nitrogen) 23 mg/dL (9.8-20.1); Bilirubin, Total 2.7 mg/dL (0.2-1.2); Calc. Creatinine Clearance 91 mL/min (70-130); Carbon Dioxide 28 mmol/L (22-29); Chloride 98 mmol/L (98-107); Globulin 2.1 g/dL (2.4-3.5); Glucose 95 mg/dL (70-105); Magnesium 1.7 mg/dL (1.6-2.6); Phosphorus 3.6 mg/dL (2.3-4.7); Potassium 3.8 mmol/L (3.5-5.1); Protein, Total 4.6 g/dL (6.0-8.3); Sodium 134 mmol/L (136-145)
[2021-02-17 06:47] LABS: Band 49 % (5-11); Dohle Bodies SLIGHT; Eosinophils 1 % (0-10); Lymphocytes 19 % (21-51); MDiff Complete? YES; Metamyelocyte 3 % (0-0); Monocytes 6 % (0-10); Myelocyte 2 % (0-0); Neutrophil 20 % (42-75); Toxic Granulation SLIGHT
[2021-02-17] MEDS: Ipratropium Bromide 0.06% Nasal Inhaler 15ml EA NARE SCH ×2 (09:32→20:52)
[2021-02-17] MEDS: Pantoprazole 40 MG VIAL IVP SCH (09:33)
[2021-02-17] MEDS ORDERED: Micafungin 100 MG in Sodium Chloride 0.9% 100 ML IVPB SCH (14:00)
[2021-02-17] MEDS: Vancomycin 1 GM in Premix Bag 1 BAG IVPB SCH (17:59)
[2021-02-17] MEDS: Enoxaparin Sodium 40 MG/0.4 ML SYRINGE SC SCH (20:52)
[2021-02-17] MEDS: Micafungin 100 MG in Sodium Chloride 0.9% 100 ML IVPB SCH (20:52)
[2021-02-17] MEDS ORDERED: CALCIUM GLUCONATE IV SCH (22:00)
[2021-02-17] MEDS ORDERED: [UNRECOGNIZED DRUG - OTHER] IV SCH (22:00)
[2021-02-17] MEDS ORDERED: SODIUM ACETATE IV SCH (22:00)
[2021-02-17] MEDS ORDERED: FAT EMULSION IV SCH (22:00)
[2021-02-18] MEDS: Piperacillin/Tazobactam 3.375 GM in Sodium Chloride 0.9% 100 ML IVPB SCH ×4 (03:09→22:03)
[2021-02-18] MEDS: Vancomycin 1 GM in Premix Bag 1 BAG IVPB SCH ×2 (04:50→15:51)
[2021-02-18 05:39] LABS: Anion Gap 15 mmol/L (10-20); BUN (Urea Nitrogen) 19 mg/dL (9.8-20.1); Calc. Creatinine Clearance 91 mL/min (70-130); Calcium 7.8 mg/dL (7.8-10.44); Carbon Dioxide 22 mmol/L (22-29); Chloride 97 mmol/L (98-107); Glucose 109 mg/dL (70-105); Sodium 131 mmol/L (136-145)
[2021-02-18] MEDS: Sodium Chloride 0.45% 1,000 ML IV SCH ×3 (07:05→22:53)
[2021-02-18] MEDS: Ipratropium Bromide 0.06% Nasal Inhaler 15ml EA NARE SCH ×2 (09:30→20:54)
[2021-02-18] MEDS: Pantoprazole 40 MG VIAL IVP SCH (09:31)
[2021-02-18] MEDS ORDERED: Potassium Chloride 40 MEQ in Premix Bag 1 BAG IVPB SCH (13:00)
[2021-02-18] MEDS: Micafungin 100 MG in Sodium Chloride 0.9% 100 ML IVPB SCH (20:08)
[2021-02-18] MEDS: Amiodarone 450 MG in Dextrose 5% in Water 250 ML IVPB SCH (20:09)
[2021-02-18] MEDS: Enoxaparin Sodium 40 MG/0.4 ML SYRINGE SC SCH (20:54)
[2021-02-18] MEDS: SODIUM ACETATE IV SCH (22:03)
[2021-02-18] MEDS: [UNRECOGNIZED DRUG - OTHER] IV SCH (22:03)
[2021-02-18] MEDS: CALCIUM GLUCONATE IV SCH (22:03)
[2021-02-19] MEDS: Piperacillin/Tazobactam 3.375 GM in Sodium Chloride 0.9% 100 ML IVPB SCH ×4 (03:16→21:48)
[2021-02-19] MEDS: Sodium Chloride 0.45% 1,000 ML IV SCH ×2 (03:19→12:48)
[2021-02-19] MEDS: Amiodarone 450 MG in Dextrose 5% in Water 250 ML IVPB SCH ×2 (03:53→21:03)
[2021-02-19] MEDS: Vancomycin 1 GM in Premix Bag 1 BAG IVPB SCH (03:53)
[2021-02-19 07:52] LABS: Mean Corpuscular HGB CONC 34.1 g/dL (32.0-36.0); Mean Corpuscular Hemoglobin 30.1 pg (27.0-31.0); Mean Corpuscular Volume 88.1 fL (78.0-98.0); Mean Platelet Volume 10.1 fL (7.4-10.4); Platelet Count 244 thou/uL (130-400); RBC Distribution Width 18.1 % (11.5-14.5); Red Blood Cell (RBC) Count 2.65 mill/uL (4.20-5.40); White Blood Cell (WBC) Count 10.9 thou/uL (4.8-10.8)
[2021-02-19 08:01] LABS: Anion Gap 13 mmol/L (10-20); BUN (Urea Nitrogen) 20 mg/dL (9.8-20.1); Calc. Creatinine Clearance 82 mL/min (70-130); Calcium 7.7 mg/dL (7.8-10.44); Carbon Dioxide 23 mmol/L (22-29); Chloride 95 mmol/L (98-107); Glucose 439 mg/dL (70-105); Sodium 129 mmol/L (136-145)
[2021-02-19 08:06] LABS: Potassium 2.4 mmol/L (3.5-5.1)
[2021-02-19 08:28] LABS: Band 44 % (5-11); Lymphocytes 24 % (21-51); MDiff Complete? YES; Monocytes 5 % (0-10); Myelocyte 3 % (0-0); Neutrophil 24 % (42-75); Platelet Morphology Comment Appears Adequate; Polychromasia SLIGHT = 2-3 cells (100X) (0-2/hpf)
[2021-02-19 08:57] LABS: Magnesium 1.7 mg/dL (1.6-2.6); Phosphorus 3.5 mg/dL (2.3-4.7)
[2021-02-19] MEDS: Pantoprazole 40 MG VIAL IVP SCH (10:13)
[2021-02-19] MEDS ORDERED: Potassium Chloride 20 MEQ TAB PO SCH (11:15)
[2021-02-19] MEDS: Potassium Chloride 20 MEQ in Premix Bag 1 BAG IVPB SCH ×2 (11:40→12:37)
[2021-02-19] MEDS: Potassium Chloride 20 MEQ TAB PO SCH (17:34)
[2021-02-19 17:38] LABS: Vancomycin, Trough 18.8 ug/mL
[2021-02-19 17:44] LABS: Potassium 2.4 mmol/L (3.5-5.1)
[2021-02-19] MEDS ORDERED: Potassium Chloride 40 MEQ in Sodium Chloride 0.9% 250 ML 250 ML IVPB SCH (19:45)
[2021-02-19] MEDS: Ipratropium Bromide 0.06% Nasal Inhaler 15ml EA NARE SCH (20:25)
[2021-02-19] MEDS: Micafungin 100 MG in Sodium Chloride 0.9% 100 ML IVPB SCH (20:32)
[2021-02-19] MEDS: Enoxaparin Sodium 40 MG/0.4 ML SYRINGE SC SCH (20:41)
[2021-02-19] MEDS ORDERED: SODIUM ACETATE IV SCH ×2 (22:00)
[2021-02-19] MEDS ORDERED: CALCIUM GLUCONATE IV SCH ×2 (22:00)
[2021-02-19] MEDS ORDERED: FAT EMULSION IV SCH ×2 (22:00)
[2021-02-19] MEDS ORDERED: [UNRECOGNIZED DRUG - OTHER] IV SCH (22:00)
[2021-02-19] MEDS ORDERED: [UNRECOGNIZED DRUG - OTHER] IV SCH (22:00)
[2021-02-19] MEDS: FAT EMULSION IV SCH (22:11)
[2021-02-19] MEDS: CALCIUM CHLORIDE IV SCH (22:11)
[2021-02-19] MEDS: SODIUM ACETATE IV SCH (22:11)
[2021-02-19] MEDS: [UNRECOGNIZED DRUG - OTHER] IV SCH (22:11)
[2021-02-20] MEDS: Sodium Chloride 0.45% 1,000 ML IV SCH ×4 (01:42→21:32)
[2021-02-20 02:43] LABS: Potassium 2.9 mmol/L (3.5-5.1)
[2021-02-20 05:22] LABS: Potassium 4.4 mmol/L (3.5-5.1)
[2021-02-20] MEDS: Piperacillin/Tazobactam 3.375 GM in Sodium Chloride 0.9% 100 ML IVPB SCH ×4 (09:02→21:30)
[2021-02-20] MEDS: Pantoprazole 40 MG VIAL IVP SCH (09:03)
[2021-02-20] MEDS: Potassium Chloride 20 MEQ TAB PO SCH ×2 (09:20→17:21)
[2021-02-20] MEDS: Amiodarone 450 MG in Dextrose 5% in Water 250 ML IVPB SCH (13:34)
[2021-02-20 13:44] LABS: INR-International Normal Ratio 1.2; Prothrombin Time 15.4 sec (12.0-14.7)
[2021-02-20 13:45] LABS: PTT 30.7 sec (22.9-36.1)
[2021-02-20 18:57] LABS: SARS-CoV-2 PCR by NAA Not Detected (NotDetected)
[2021-02-20] MEDS: Enoxaparin Sodium 40 MG/0.4 ML SYRINGE SC SCH (21:30)
[2021-02-20] MEDS: Micafungin 100 MG in Sodium Chloride 0.9% 100 ML IVPB SCH (21:30)
[2021-02-20] MEDS: Sodium Acetate 2 mEq/ml 70 MEQ, Calcium Chloride 10 MEQ, Magnesium Sulfate 4.06 MEQ/ML ... IV SCH (22:27)
[2021-02-21] MEDS: Piperacillin/Tazobactam 3.375 GM in Sodium Chloride 0.9% 100 ML IVPB SCH ×4 (03:49→22:17)
[2021-02-21] MEDS: Amiodarone 450 MG in Dextrose 5% in Water 250 ML IVPB SCH (07:53)
[2021-02-21] MEDS: Potassium Chloride 20 MEQ TAB PO SCH ×2 (08:35→18:32)
[2021-02-21] MEDS: Pantoprazole 40 MG VIAL IVP SCH (08:35)
[2021-02-21 08:47] LABS: Hemoglobin 6.5 g/dL (12.0-16.0); Mean Corpuscular HGB CONC 35.2 g/dL (32.0-36.0); Mean Corpuscular Hemoglobin 30.4 pg (27.0-31.0); Mean Corpuscular Volume 86.2 fL (78.0-98.0); RBC Distribution Width 18.5 % (11.5-14.5); Red Blood Cell (RBC) Count 2.14 mill/uL (4.20-5.40)
[2021-02-21 08:52] LABS: ALT (SGPT) 21 U/L (8-55); AST (SGOT) 16 U/L (5-34); Alkaline Phosphatase 113 U/L (40-110); Anion Gap 10 mmol/L (10-20); BUN (Urea Nitrogen) 27 mg/dL (9.8-20.1); Bilirubin, Total 1.5 mg/dL (0.2-1.2); Calc. Creatinine Clearance 89 mL/min (70-130); Calcium 7.5 mg/dL (7.8-10.44); Carbon Dioxide 25 mmol/L (22-29); Chloride 99 mmol/L (98-107); Globulin 1.9 g/dL (2.4-3.5); Glucose 114 mg/dL (70-105); Potassium 3.8 mmol/L (3.5-5.1); Protein, Total 3.9 g/dL (6.0-8.3); Sodium 130 mmol/L (136-145)
[2021-02-21 09:04] LABS: Band 28 % (5-11); Eosinophils 2 % (0-10); Large Platelets SLIGHT; Lymphocytes 11 % (21-51); MDiff Complete? YES; Mean Platelet Volume 8.9 fL (7.4-10.4); Metamyelocyte 1 % (0-0); Monocytes 6 % (0-10); Neutrophil 52 % (42-75); Platelet Count 320 thou/uL (130-400); Platelet Morphology Comment Appears Adequate; Polychromasia MODERATE = 3-4 cells (100X) (0-2/hpf); White Blood Cell (WBC) Count 23.2 thou/uL (4.8-10.8)
[2021-02-21] MEDS: Sodium Chloride 0.45% 1,000 ML IV SCH ×3 (19:24→22:17)
[2021-02-21 20:49] LABS: Hemoglobin 7.9 g/dL (12.0-16.0); Mean Corpuscular HGB CONC 34.2 g/dL (32.0-36.0); Mean Corpuscular Hemoglobin 29.4 pg (27.0-31.0); Mean Corpuscular Volume 85.9 fL (78.0-98.0); Mean Platelet Volume 8.7 fL (7.4-10.4); Platelet Count 314 thou/uL (130-400); RBC Distribution Width 18.4 % (11.5-14.5); White Blood Cell (WBC) Count 19.7 thou/uL (4.8-10.8)
[2021-02-21 22:06] LABS: Anisocytosis SLIGHT = 6-15 cells (100X) (0-5/hpf); Band 19 % (5-11); Eosinophils 1 % (0-10); Lymphocytes 14 % (21-51); MDiff Complete? YES; Metamyelocyte 3 % (0-0); Monocytes 5 % (0-10); Myelocyte 1 % (0-0); Neutrophil 56 % (42-75); Platelet Morphology Comment Appears Adequate; Polychromasia SLIGHT = 2-3 cells (100X) (0-2/hpf); Reactive Lymphocytes 1 % (0-10)
[2021-02-21] MEDS: Ipratropium Bromide 0.06% Nasal Inhaler 15ml EA NARE SCH (22:19)
[2021-02-21] MEDS: Micafungin 100 MG in Sodium Chloride 0.9% 100 ML IVPB SCH (22:19)
[2021-02-22] MEDS: Sodium Acetate 2 mEq/ml 70 MEQ, Calcium Chloride 10 MEQ, Magnesium Sulfate 4.06 MEQ/ML ... IV SCH (00:26)
[2021-02-22] MEDS: Piperacillin/Tazobactam 3.375 GM in Sodium Chloride 0.9% 100 ML IVPB SCH ×4 (04:45→22:16)
[2021-02-22 06:34] LABS: Hemoglobin 7.1 g/dL (12.0-16.0); Mean Corpuscular HGB CONC 34.5 g/dL (32.0-36.0); Mean Corpuscular Hemoglobin 29.8 pg (27.0-31.0); Mean Corpuscular Volume 86.3 fL (78.0-98.0); Mean Platelet Volume 8.5 fL (7.4-10.4); Platelet Count 301 thou/uL (130-400); Red Blood Cell (RBC) Count 2.37 mill/uL (4.20-5.40); White Blood Cell (WBC) Count 19.5 thou/uL (4.8-10.8)
[2021-02-22 06:45] LABS: ALT (SGPT) 20 U/L (8-55); AST (SGOT) 18 U/L (5-34); Albumin 1.8 g/dL (3.5-5.0); Alkaline Phosphatase 118 U/L (40-110); Anion Gap 7 mmol/L (10-20); BUN (Urea Nitrogen) 23 mg/dL (9.8-20.1); Bilirubin, Total 1.9 mg/dL (0.2-1.2); Calc. Creatinine Clearance 89 mL/min (70-130); Calcium 7.6 mg/dL (7.8-10.44); Carbon Dioxide 26 mmol/L (22-29); Chloride 101 mmol/L (98-107); Glucose 121 mg/dL (70-105); Potassium 3.9 mmol/L (3.5-5.1); Protein, Total 3.8 g/dL (6.0-8.3); Sodium 130 mmol/L (136-145)
[2021-02-22 07:06] LABS: Band 52 % (5-11); Dohle Bodies SLIGHT; Eosinophils 2 % (0-10); Lymphocytes 12 % (21-51); MDiff Complete? YES; Metamyelocyte 5 % (0-0); Monocytes 4 % (0-10); Myelocyte 2 % (0-0); Neutrophil 20 % (42-75); Nucleated RBC 1 % (0); Platelet Morphology Comment Appears Adequate; Polychromasia SLIGHT = 2-3 cells (100X) (0-2/hpf); Reactive Lymphocytes 2 % (0-10); Toxic Granulation SLIGHT; Vacuoles SLIGHT
[2021-02-22] MEDS: Sodium Chloride 0.45% 1,000 ML IV SCH ×3 (08:03→23:06)
[2021-02-22] MEDS: Ipratropium Bromide 0.06% Nasal Inhaler 15ml EA NARE SCH ×4 (08:03→22:18)
[2021-02-22] MEDS: Pantoprazole 40 MG VIAL IVP SCH (09:36)
[2021-02-22] MEDS: Potassium Chloride 20 MEQ TAB PO SCH ×2 (09:39→17:23)
[2021-02-22] MEDS: Amiodarone 450 MG in Dextrose 5% in Water 250 ML IVPB SCH (13:59)
[2021-02-22] MEDS: Micafungin 100 MG in Sodium Chloride 0.9% 100 ML IVPB SCH (22:17)
[2021-02-22] MEDS: Amiodarone 200 MG TAB PER TUBE SCH (22:17)
[2021-02-22] MEDS: Enoxaparin Sodium 30 MG/0.3 ML SYRINGE SC SCH (22:17)
[2021-02-22] MEDS: CALCIUM CHLORIDE IV SCH (22:18)
[2021-02-22] MEDS: SODIUM ACETATE IV SCH (22:18)
[2021-02-22] MEDS: FAT EMULSION IV SCH (22:18)
[2021-02-22] MEDS: [UNRECOGNIZED DRUG - OTHER] IV SCH (22:18)
[2021-02-23] MEDS: Piperacillin/Tazobactam 3.375 GM in Sodium Chloride 0.9% 100 ML IVPB SCH ×4 (03:21→22:47)
[2021-02-23] MEDS: Amiodarone 450 MG in Dextrose 5% in Water 250 ML IVPB SCH (06:31)
[2021-02-23 07:11] LABS: ALT (SGPT) 22 U/L (8-55); AST (SGOT) 20 U/L (5-34); Albumin 1.9 g/dL (3.5-5.0); Alkaline Phosphatase 132 U/L (40-110); Anion Gap 9 mmol/L (10-20); BUN (Urea Nitrogen) 19 mg/dL (9.8-20.1); Bilirubin, Total 1.9 mg/dL (0.2-1.2); Calc. Creatinine Clearance 95 mL/min (70-130); Calcium 7.5 mg/dL (7.8-10.44); Carbon Dioxide 22 mmol/L (22-29); Chloride 100 mmol/L (98-107); Globulin 2.1 g/dL (2.4-3.5); Glucose 122 mg/dL (70-105); Potassium 4.4 mmol/L (3.5-5.1); Sodium 127 mmol/L (136-145)
[2021-02-23] MEDS: Pantoprazole 40 MG VIAL IVP SCH (08:34)
[2021-02-23] MEDS: Amiodarone 200 MG TAB PER TUBE SCH ×3 (08:34→21:08)
[2021-02-23] MEDS: Potassium Chloride 20 MEQ TAB PER TUBE SCH ×2 (08:34→18:57)
[2021-02-23] MEDS: Ipratropium Bromide 0.06% Nasal Inhaler 15ml EA NARE SCH ×2 (08:35→21:00)
[2021-02-23 09:09] LABS: Hemoglobin 8.6 g/dL (12.0-16.0); Mean Corpuscular HGB CONC 33.1 g/dL (32.0-36.0); Mean Corpuscular Hemoglobin 29.4 pg (27.0-31.0); Mean Corpuscular Volume 88.8 fL (78.0-98.0); Mean Platelet Volume 8.3 fL (7.4-10.4); Platelet Count 260 thou/uL (130-400); RBC Distribution Width 18.7 % (11.5-14.5); Red Blood Cell (RBC) Count 2.92 mill/uL (4.20-5.40); White Blood Cell (WBC) Count 20.1 thou/uL (4.8-10.8)
[2021-02-23 09:32] LABS: Band 55 % (5-11); Dohle Bodies SLIGHT; Eosinophils 1 % (0-10); Lymphocytes 13 % (21-51); MDiff Complete? YES; Metamyelocyte 3 % (0-0); Monocytes 1 % (0-10); Myelocyte 4 % (0-0); Neutrophil 20 % (42-75); Platelet Morphology Comment Appears Adequate; Polychromasia MODERATE = 3-4 cells (100X) (0-2/hpf); Reactive Lymphocytes 3 % (0-10); Toxic Granulation SLIGHT; Vacuoles SLIGHT
[2021-02-23] MEDS: Sodium Chloride 0.45% 1,000 ML IV SCH ×3 (10:02→22:48)
[2021-02-23 13:29] VITALS: BMI 21.9
[2021-02-23] MEDS ORDERED: Metoprolol Tartrate 5 MG/5 ML VIAL IVP SCH ×2 (18:15→23:59)
[2021-02-23] MEDS: Micafungin 100 MG in Sodium Chloride 0.9% 100 ML IVPB SCH (20:57)
[2021-02-23] MEDS: Enoxaparin Sodium 30 MG/0.3 ML SYRINGE SC SCH (21:07)
[2021-02-23] MEDS: Sodium Acetate 2 mEq/ml 70 MEQ, Calcium Chloride 10 MEQ, Magnesium Sulfate 4.06 MEQ/ML ... IV SCH (22:45)
[2021-02-24] MEDS: Piperacillin/Tazobactam 3.375 GM in Sodium Chloride 0.9% 100 ML IVPB SCH ×3 (02:59→16:21)
[2021-02-24] MEDS ORDERED: PROPOFOL 200 MG/20 ML VIAL ONE (09:51)
[2021-02-24] MEDS ORDERED: Ketamine 50 MG/ML (10ML VIAL) ONE (09:52)
[2021-02-24] MEDS ORDERED: Lidocaine Viscous Sol 2% 15 ml UD Cup ONE (09:55)
[2021-02-24] MEDS: Sodium Chloride 0.45% 1,000 ML IV SCH ×2 (11:47→16:21)
[2021-02-24] MEDS: Potassium Chloride 20 MEQ TAB PER TUBE SCH ×2 (11:47→13:35)
[2021-02-24] MEDS: Pantoprazole 40 MG VIAL IVP SCH (11:47)
[2021-02-24] MEDS: Ipratropium Bromide 0.06% Nasal Inhaler 15ml EA NARE SCH (11:47)
[2021-02-24] MEDS: Amiodarone 200 MG TAB PER TUBE SCH ×3 (11:48→16:20)
[2021-02-24 12:18] VITALS: BP 90/56; TEMP 98.1
== END 2021-02-24 15:20 | DRG 853 ==
LOC: ERS 09:57 → SURG A 13:25 → PACU-TCU 20:35 → CCU 01-05 19:23 → SURG A 01-21 11:36 → 2NO 02-18 19:37
PROVIDERS: ADMIT Specialist; ATTEND Specialist
PROC: 0DTF0ZZ Resection of Right Large Intestine, Open Approach (ICD-10-PCS; principal; 2021-01-04)
PROC: 02HV33Z Insertion of Infusion Device into Superior Vena Cava, Percutaneous Approach (ICD-10-PCS; 2021-01-04)
PROC: 30233N1 Transfusion of Nonautologous Red Blood Cells into Peripheral Vein, Percutaneous Approach (ICD-10-PCS; 2021-01-04)
PROC: 3E043XZ Introduction of Vasopressor into Central Vein, Percutaneous Approach (ICD-10-PCS; 2021-01-04)
PROC: 5A1955Z Respiratory Ventilation, Greater than 96 Consecutive Hours (ICD-10-PCS; 2021-01-04)
PROC: 0D9670Z Drainage of Stomach with Drainage Device, Via Natural or Artificial Opening (ICD-10-PCS; 2021-01-04)
PROC: 0DS80ZZ Reposition Small Intestine, Open Approach (ICD-10-PCS; 2021-01-04)
PROC: 0D1B0Z4 Bypass Ileum to Cutaneous, Open Approach (ICD-10-PCS; 2021-01-06)
PROC: 3E0436Z Introduction of Nutritional Substance into Central Vein, Percutaneous Approach (ICD-10-PCS; 2021-01-07)
PROC: 0JQ80ZZ Repair Abdomen Subcutaneous Tissue and Fascia, Open Approach (ICD-10-PCS; 2021-01-08)
PROC: 5A1945Z Respiratory Ventilation, 24-96 Consecutive Hours (ICD-10-PCS; 2021-01-15)
PROC: 5A09357 Assistance with Respiratory Ventilation, Less than 24 Consecutive Hours, Continuous Positive Airway Pressure (ICD-10-PCS; 2021-01-15)
PROC: 0BH18EZ Insertion of Endotracheal Airway into Trachea, Via Natural or Artificial Opening Endoscopic (ICD-10-PCS; 2021-01-16)
PROC: 0B918ZZ Drainage of Trachea, Via Natural or Artificial Opening Endoscopic (ICD-10-PCS; 2021-01-16)
PROC: 3E0G76Z Introduction of Nutritional Substance into Upper GI, Via Natural or Artificial Opening (ICD-10-PCS; 2021-01-22)
PROC: 0DH63UZ Insertion of Feeding Device into Stomach, Percutaneous Approach (ICD-10-PCS; 2021-01-26)
PROC: 0JH60XZ Insertion of Tunneled Vascular Access Device into Chest Subcutaneous Tissue and Fascia, Open Approach (ICD-10-PCS; 2021-01-26)
PROC: 02HV33Z Insertion of Infusion Device into Superior Vena Cava, Percutaneous Approach (ICD-10-PCS; 2021-01-26)
PROC: B5181ZA Fluoroscopy of Superior Vena Cava using Low Osmolar Contrast, Guidance (ICD-10-PCS; 2021-01-26)
PROC: B548ZZA Ultrasonography of Superior Vena Cava, Guidance (ICD-10-PCS; 2021-01-26)
PROC: 0CJS8ZZ Inspection of Larynx, Via Natural or Artificial Opening Endoscopic (ICD-10-PCS; 2021-01-29)
PROC: 3E0F8GC Introduction of Other Therapeutic Substance into Respiratory Tract, Via Natural or Artificial Opening Endoscopic (ICD-10-PCS; 2021-02-09)
PROC: 0DW68UZ Revision of Feeding Device in Stomach, Via Natural or Artificial Opening Endoscopic (ICD-10-PCS; 2021-02-16)
PROC: 0JPT3XZ Removal of Tunneled Vascular Access Device from Trunk Subcutaneous Tissue and Fascia, Percutaneous Approach (ICD-10-PCS; 2021-02-16)
PROC: 0JH63XZ Insertion of Tunneled Vascular Access Device into Chest Subcutaneous Tissue and Fascia, Percutaneous Approach (ICD-10-PCS; 2021-02-16)
PROC: 02PY33Z Removal of Infusion Device from Great Vessel, Percutaneous Approach (ICD-10-PCS; 2021-02-16)
PROC: 02HV33Z Insertion of Infusion Device into Superior Vena Cava, Percutaneous Approach (ICD-10-PCS; 2021-02-16)
PROC: B5181ZA Fluoroscopy of Superior Vena Cava using Low Osmolar Contrast, Guidance (ICD-10-PCS; 2021-02-16)
PROC: B548ZZA Ultrasonography of Superior Vena Cava, Guidance (ICD-10-PCS; 2021-02-16)
PROC: 0DHA3UZ Insertion of Feeding Device into Jejunum, Percutaneous Approach (ICD-10-PCS; 2021-02-24)
PROC: 0DP68UZ Removal of Feeding Device from Stomach, Via Natural or Artificial Opening Endoscopic (ICD-10-PCS; 2021-02-24)
DX: A41.9 Sepsis, unspecified organism (principal); K56.2 Volvulus; T80.211A Bloodstream infection due to central venous catheter, initial encounter; K55.049 Acute infarction of large intestine, extent unspecified; K55.029 Acute infarction of small intestine, extent unspecified; K65.9 Peritonitis, unspecified; J69.0 Pneumonitis due to inhalation of food and vomit; J96.00 Acute respiratory failure, unspecified whether with hypoxia or hypercapnia; N17.9 Acute kidney failure, unspecified; Q43.3 Congenital malformations of intestinal fixation; E46 Unspecified protein-calorie malnutrition; E87.0 Hyperosmolality and hypernatremia; E87.3 Alkalosis; G93.49 Other encephalopathy; E87.1 Hypo-osmolality and hyponatremia; E87.2 Acidosis; G72.81 Critical illness myopathy; I47.1 Supraventricular tachycardia; N39.0 Urinary tract infection, site not specified; K55.9 Vascular disorder of intestine, unspecified; D62 Acute posthemorrhagic anemia; K56.7 Ileus, unspecified; Z20.822 Contact with and (suspected) exposure to COVID-19; J38.01 Paralysis of vocal cords and larynx, unilateral; K58.9 Irritable bowel syndrome, unspecified; K31.84 Gastroparesis; E87.6 Hypokalemia; E86.0 Dehydration; D63.1 Anemia in chronic kidney disease; I07.1 Rheumatic tricuspid insufficiency; I12.9 Hypertensive chronic kidney disease with stage 1 through stage 4 chronic kidney disease, or unspecified chronic kidney disease; N18.30 Chronic kidney disease, stage 3 unspecified; D53.9 Nutritional anemia, unspecified; E83.51 Hypocalcemia; R13.12 Dysphagia, oropharyngeal phase; E87.5 Hyperkalemia; R11.14 Bilious vomiting; E80.6 Other disorders of bilirubin metabolism; E88.09 Other disorders of plasma-protein metabolism, not elsewhere classified; Y84.8 Other medical procedures as the cause of abnormal reaction of the patient, or of later complication, without mention of misadventure at the time of the procedure; L89.152 Pressure ulcer of sacral region, stage 2; B96.20 Unspecified Escherichia coli [E. coli] as the cause of diseases classified elsewhere; B95.2 Enterococcus as the cause of diseases classified elsewhere; B96.89 Other specified bacterial agents as the cause of diseases classified elsewhere; B95.7 Other staphylococcus as the cause of diseases classified elsewhere; Z68.21 Body mass index [BMI] 21.0-21.9, adult; Z78.1 Physical restraint status; Z79.899 Other long term (current) drug therapy; Z88.8 Allergy status to other drugs, medicaments and biological substances
CPT/HCPCS: 36415; 36416; 36430; 36600; 71045; 74018; 74019; 74022; 74176; 74177; 74230; 74240; 76705; 76770; 80048; 80053; 80076; 80202; 81001; 81003; 81015; 82533; 82805; 83605; 83690; 83735; 83880; 84100; 84145; 84436; 84439; 84479; 84481; 84484; 85007; 85014; 85018; 85025; 85027; 85060; 85610; 85730; 86850; 86900; 86901; 87040; 87077; 87086; 87149; 87186; 88307; 89220; 93005; 93010; 93306; 94002; 94003; 94640; 96365; 96375; 96376; A4217; C1751; C9113; J0171; J0282; J0610; J1100; J1120; J1450; J1642; J1644; J1650; J1815; J1885; J1940; J1956; J2001; J2060; J2185; J2248; J2250; J2270; J2310; J2370; J2405; J2543; J2704; J2765; J2997; J3010; J3370; J3475; J3480; J3490; J7030; J7050; J7070; J7120; J7620; P9016; P9045; P9047; Q5105; Q9967; S0020; U0002; U0003; U0005

== ENCOUNTER 2021-03-24 17:21 | Inpatient (IN) | payer BC ==
[2021-03-25] MEDS: Lactated Ringer's 1,000 ML IV SCH ×3 (02:24→22:52)
[2021-03-25] MEDS: Metoprolol Tartrate 25 MG TAB PER TUBE SCH ×2 (02:28→08:19)
[2021-03-25] MEDS: Cefepime 1 GM in Sodium Chloride 0.9% 100 ML IVPB SCH ×2 (02:43→17:11)
[2021-03-25 03:00] VITALS: BMI 19.1
[2021-03-25] MEDS: Clindamycin/D5W 900 MG in Premix Bag 1 BAG IVPB SCH ×3 (04:23→20:40)
[2021-03-25] MEDS ORDERED: Digoxin 0.125 MG TAB PER TUBE SCH ×2 (09:00→12:15)
[2021-03-25] MEDS ORDERED: Digoxin 0.5 MG/2 ML AMP SLOW IVP SCH (09:30)
[2021-03-25] MEDS ORDERED: Melatonin 3 MG TAB PER TUBE PRN (09:40)
[2021-03-25] MEDS ORDERED: Lorazepam 2 MG/ML VIAL SLOW IVP PRN (09:40)
[2021-03-25] MEDS ORDERED: Acetaminophen 500 MG TAB PER TUBE PRN (09:40)
[2021-03-25] MEDS ORDERED: Loratadine 5 MG/5 ML UDCUP PER TUBE PRN (09:40)
[2021-03-25 09:50] LABS: Anion Gap 17 mmol/L (10-20); BUN (Urea Nitrogen) 29 mg/dL (9.8-20.1); Calc. Creatinine Clearance 95 mL/min (70-130); Calcium 8.5 mg/dL (7.8-10.44); Carbon Dioxide 21 mmol/L (22-29); Chloride 105 mmol/L (98-107); Glucose 71 mg/dL (70-105); Magnesium 1.7 mg/dL (1.6-2.6); Phosphorus 4.1 mg/dL (2.3-4.7); Potassium 4.2 mmol/L (3.5-5.1); Sodium 139 mmol/L (136-145)
[2021-03-25] MEDS ORDERED: Metoprolol Tartrate 5 MG/5 ML VIAL IVP SCH (10:00)
[2021-03-25 10:35] LABS: INR-International Normal Ratio 1.3; PTT 33.6 sec (22.9-36.1); Prothrombin Time 16.2 sec (12.0-14.7)
[2021-03-25] MEDS ORDERED: Metoprolol Tartrate 25 MG TAB PER TUBE SCH ×2 (12:15→21:00)
[2021-03-25 12:16] LABS: #Lymphocytes 1.6 thou/uL (1.20-3.40); #Monocytes 0.1 thou/uL (0.11-0.59); #Neutrophils 4.2 thou/uL (1.40-6.50); %Basophils 0.2 % (0.0-1.0); %Eosinophils 0.1 % (0.0-10.0); %Lymphocytes 26.5 % (21.0-51.0); %Monocytes 1.8 % (0.0-10.0); %Neutrophils 71.4 % (42.0-75.0); Hemoglobin 8.2 g/dL (12.0-16.0); Mean Corpuscular HGB CONC 33.3 g/dL (32.0-36.0); Mean Corpuscular Hemoglobin 29.8 pg (27.0-31.0); Mean Corpuscular Volume 89.5 fL (78.0-98.0); Mean Platelet Volume 9.1 fL (7.4-10.4); Platelet Count 45 thou/uL (130-400); RBC Distribution Width 14.9 % (11.5-14.5); Red Blood Cell (RBC) Count 2.76 mill/uL (4.20-5.40); White Blood Cell (WBC) Count 5.9 thou/uL (4.8-10.8)
[2021-03-25 12:19] LABS: SARS-CoV-2 PCR by NAA Not Detected (NotDetected)
[2021-03-25 12:21] LABS: INR-International Normal Ratio 1.2; Prothrombin Time 15.8 sec (12.0-14.7)
[2021-03-25 12:22] LABS: PTT 32.3 sec (22.9-36.1)
[2021-03-25 12:46] LABS: MDiff Complete? YES; Platelet Morphology Comment Appears Decreased; Polychromasia SLIGHT = 2-3 cells (100X) (0-2/hpf)
[2021-03-25] MEDS ORDERED: Multivitamins, Adult 10 ML, TRACE ELEMENT CONCENTRATE 1 ML in CLINIMIX E 5/20 2,000 ML IV SCH (14:00)
[2021-03-25] MEDS ORDERED: Fentanyl 100 MCG/2 ML VIAL ONE (15:08)
[2021-03-25] MEDS ORDERED: Midazolam HCl 2 mg/2 ml Vial ONE (15:08)
[2021-03-25 19:57] LABS: BUN (Urea Nitrogen) 32 mg/dL (9.8-20.1); Calc. Creatinine Clearance 116 mL/min (70-130)
[2021-03-25 20:32] LABS: RBC Count-Automated (BF) 102897 /cu.mm; WBC/Nucleated-Auto (BF) 321 /cu.mm
[2021-03-25 20:43] LABS: BF Color Red; Body Fluid Source Abscess Fluid; Clarity Cloudy/Turbid (Clear); Tube # EDTA
[2021-03-25 20:46] LABS: BF Segmented Neutrophils 89 %; Cell Count Non Hematic 5 %; Lymphocytes 6 %
[2021-03-26] MEDS ORDERED: Metoprolol Tartrate 5 MG/5 ML VIAL IVP SCH (00:15)
[2021-03-26] MEDS: Cefepime 1 GM in Sodium Chloride 0.9% 100 ML IVPB SCH (02:41)
[2021-03-26] MEDS: Clindamycin/D5W 900 MG in Premix Bag 1 BAG IVPB SCH ×3 (03:59→20:34)
[2021-03-26] MEDS ORDERED: Digoxin 0.5 MG/2 ML AMP SLOW IVP SCH (09:00)
[2021-03-26] MEDS: Lactated Ringer's 1,000 ML IV SCH ×3 (09:11→20:38)
[2021-03-26 09:26] LABS: Hemoglobin 7.3 g/dL (12.0-16.0); Mean Corpuscular Hemoglobin 29.7 pg (27.0-31.0); Mean Corpuscular Volume 87.2 fL (78.0-98.0); Mean Platelet Volume 8.2 fL (7.4-10.4); Platelet Count 59 thou/uL (130-400); RBC Distribution Width 14.5 % (11.5-14.5); Red Blood Cell (RBC) Count 2.44 mill/uL (4.20-5.40); White Blood Cell (WBC) Count 3.3 thou/uL (4.8-10.8)
[2021-03-26 09:31] LABS: ALT (SGPT) 7 U/L (8-55); AST (SGOT) 8 U/L (5-34); Albumin 2.4 g/dL (3.5-5.0); Alkaline Phosphatase 135 U/L (40-110); Anion Gap 13 mmol/L (10-20); BUN (Urea Nitrogen) 36 mg/dL (9.8-20.1); Bilirubin, Total 1.3 mg/dL (0.2-1.2); Calc. Creatinine Clearance 92 mL/min (70-130); Calcium 7.7 mg/dL (7.8-10.44); Carbon Dioxide 31 mmol/L (22-29); Chloride 96 mmol/L (98-107); Globulin 2.3 g/dL (2.4-3.5); Glucose 138 mg/dL (70-105); Protein, Total 4.7 g/dL (6.0-8.3); Sodium 137 mmol/L (136-145)
[2021-03-26 09:35] LABS: Band 18 % (5-11); Digoxin Less than 0.15 ng/mL (0.8-2.0); Lymphocytes 23 % (21-51); MDiff Complete? YES; Monocytes 3 % (0-10); Neutrophil 56 % (42-75); Platelet Morphology Comment Appears Decreased; Polychromasia SLIGHT = 2-3 cells (100X) (0-2/hpf)
[2021-03-26 09:39] LABS: Potassium 2.6 mmol/L (3.5-5.1)
[2021-03-26] MEDS ORDERED: Potassium Chloride 40 MEQ in Premix Bag 1 BAG IVPB SCH (11:00)
[2021-03-26] MEDS ORDERED: Digoxin 0.25 MG TAB PO SCH (12:15)
[2021-03-26] MEDS ORDERED: Fat Emulsion 250 ML IVPB SCH ×3 (14:00→14:14)
[2021-03-26] MEDS: Cefepime 2 GM in Sodium Chloride 0.9% 100 ML IVPB SCH (15:09)
[2021-03-26] MEDS: Multivitamins, Adult 10 ML, TRACE ELEMENT CONCENTRATE 1 ML in CLINIMIX E 5/20 2,000 ML IV SCH (15:26)
[2021-03-26] MEDS: Fat Emulsion 250 ML IVPB SCH (15:26)
[2021-03-26] MEDS: Metoclopramide 10 MG/10 ML UDCUP PER TUBE SCH ×2 (17:31→20:34)
[2021-03-27] MEDS: Clindamycin/D5W 900 MG in Premix Bag 1 BAG IVPB SCH ×3 (03:15→20:10)
[2021-03-27] MEDS: Cefepime 2 GM in Sodium Chloride 0.9% 100 ML IVPB SCH ×2 (03:15→15:24)
[2021-03-27] MEDS: Lactated Ringer's 1,000 ML IV SCH (04:46)
[2021-03-27 06:29] LABS: Hemoglobin 7.9 g/dL (12.0-16.0); Mean Corpuscular HGB CONC 34.3 g/dL (32.0-36.0); Mean Corpuscular Volume 87.4 fL (78.0-98.0); Mean Platelet Volume 9.6 fL (7.4-10.4); Platelet Count 36 thou/uL (130-400); RBC Distribution Width 14.6 % (11.5-14.5); Red Blood Cell (RBC) Count 2.63 mill/uL (4.20-5.40); White Blood Cell (WBC) Count 4.2 thou/uL (4.8-10.8)
[2021-03-27 06:31] LABS: Anion Gap 12 mmol/L (10-20); BUN (Urea Nitrogen) 44 mg/dL (9.8-20.1); Calc. Creatinine Clearance 82 mL/min (70-130); Carbon Dioxide 30 mmol/L (22-29); Chloride 96 mmol/L (98-107); Glucose 138 mg/dL (70-105); Sodium 135 mmol/L (136-145)
[2021-03-27 06:38] LABS: Potassium 2.6 mmol/L (3.5-5.1)
[2021-03-27 08:13] LABS: Band 17 % (5-11); Eosinophils 2 % (0-10); Lymphocytes 35 % (21-51); MDiff Complete? YES; Monocytes 1 % (0-10); Myelocyte 1 % (0-0); Neutrophil 44 % (42-75)
[2021-03-27] MEDS ORDERED: Sodium Chloride 0.9% 1,000 ML IV SCH (08:45)
[2021-03-27] MEDS ORDERED: Potassium Chloride 40 MEQ in Premix Bag 1 BAG IVPB SCH ×2 (08:45→09:00)
[2021-03-27] MEDS ORDERED: Digoxin 0.25 MG TAB PO SCH (09:00)
[2021-03-27] MEDS: Digoxin 0.25 MG TAB PER TUBE SCH (09:56)
[2021-03-27] MEDS: Metoclopramide 10 MG/10 ML UDCUP PER TUBE SCH ×4 (09:57→20:10)
[2021-03-27] MEDS: Aspirin Chewable 81 MG TAB PER TUBE SCH (09:57)
[2021-03-27] MEDS: Potassium Chloride 20 MEQ in Lactated Ringer's 1,000 ML IV SCH (13:28)
[2021-03-27] MEDS: Multivitamins, Adult 10 ML, TRACE ELEMENT CONCENTRATE 1 ML in D15W-AA 5% with Lytes 2,0... IV SCH (15:24)
[2021-03-27 15:37] LABS: Heparin-Induced Ab (HITA) 0.095 OD (0.000-0.400)
[2021-03-27 16:19] LABS: Digoxin Less than 0.15 ng/mL (0.8-2.0)
[2021-03-27 16:57] LABS: Anion Gap 14 mmol/L (10-20); BUN (Urea Nitrogen) 48 mg/dL (9.8-20.1); Calc. Creatinine Clearance 77 mL/min (70-130); Calcium 7.8 mg/dL (7.8-10.44); Carbon Dioxide 24 mmol/L (22-29); Chloride 100 mmol/L (98-107); Glucose 137 mg/dL (70-105); Potassium 3.9 mmol/L (3.5-5.1); Sodium 134 mmol/L (136-145)
[2021-03-27] MEDS ORDERED: Albumin 25% 25 GM/100 ML BOT IVPB SCH (18:00)
[2021-03-27] MEDS: Multivitamins, Adult 10 ML, TRACE ELEMENT CONCENTRATE 1 ML in CLINIMIX E 5/20 2,000 ML IV SCH (18:30)
[2021-03-27] MEDS: Metoprolol Tartrate 25 MG TAB PO SCH (20:10)
[2021-03-27] MEDS: Albumin 25% 25 GM/100 ML BOT IVPB SCH (21:23)
[2021-03-28] MEDS: Cefepime 2 GM in Sodium Chloride 0.9% 100 ML IVPB SCH ×2 (02:28→14:53)
[2021-03-28] MEDS: Albumin 25% 25 GM/100 ML BOT IVPB SCH ×4 (03:07→21:01)
[2021-03-28] MEDS: Potassium Chloride 20 MEQ in Lactated Ringer's 1,000 ML IV SCH ×2 (03:07→17:59)
[2021-03-28] MEDS: Clindamycin/D5W 900 MG in Premix Bag 1 BAG IVPB SCH ×3 (04:13→20:07)
[2021-03-28 07:08] LABS: Anion Gap 14 mmol/L (10-20); BUN (Urea Nitrogen) 59 mg/dL (9.8-20.1); Calc. Creatinine Clearance 68 mL/min (70-130); Calcium 8.6 mg/dL (7.8-10.44); Carbon Dioxide 25 mmol/L (22-29); Chloride 98 mmol/L (98-107); Glucose 105 mg/dL (70-105); Potassium 3.8 mmol/L (3.5-5.1); Sodium 133 mmol/L (136-145)
[2021-03-28 07:10] LABS: Digoxin 0.24 ng/mL (0.8-2.0)
[2021-03-28 07:52] LABS: Band 29 % (5-11); Hemoglobin 6.6 g/dL (12.0-16.0); Lymphocytes 26 % (21-51); MDiff Complete? YES; Mean Corpuscular Hemoglobin 29.7 pg (27.0-31.0); Mean Corpuscular Volume 87.5 fL (78.0-98.0); Mean Platelet Volume 11.8 fL (7.4-10.4); Metamyelocyte 3 % (0-0); Monocytes 9 % (0-10); Neutrophil 33 % (42-75); Platelet Count 39 thou/uL (130-400); Platelet Morphology Comment Appears Decreased; RBC Distribution Width 14.9 % (11.5-14.5); Red Blood Cell (RBC) Count 2.21 mill/uL (4.20-5.40); White Blood Cell (WBC) Count 8.7 thou/uL (4.8-10.8)
[2021-03-28] MEDS: Digoxin 0.25 MG TAB PER TUBE SCH (09:46)
[2021-03-28] MEDS: Metoprolol Tartrate 25 MG TAB PO SCH ×2 (09:46→21:02)
[2021-03-28] MEDS: Aspirin Chewable 81 MG TAB PER TUBE SCH (09:46)
[2021-03-28] MEDS: Metoclopramide 10 MG/10 ML UDCUP PER TUBE SCH ×4 (09:46→21:02)
[2021-03-28] MEDS: Multivitamins, Adult 10 ML, TRACE ELEMENT CONCENTRATE 1 ML in D15W-AA 5% with Lytes 2,0... IV SCH (14:45)
[2021-03-29] MEDS: Cefepime 2 GM in Sodium Chloride 0.9% 100 ML IVPB SCH (02:49)
[2021-03-29] MEDS: Clindamycin/D5W 900 MG in Premix Bag 1 BAG IVPB SCH ×2 (04:12→13:17)
[2021-03-29 06:43] LABS: Hemoglobin 10.1 g/dL (12.0-16.0); Mean Corpuscular HGB CONC 34.2 g/dL (32.0-36.0); Mean Corpuscular Hemoglobin 28.8 pg (27.0-31.0); Mean Corpuscular Volume 84.4 fL (78.0-98.0); Mean Platelet Volume 11.4 fL (7.4-10.4); Platelet Count 78 thou/uL (130-400); White Blood Cell (WBC) Count 11.1 thou/uL (4.8-10.8)
[2021-03-29 06:44] LABS: Digoxin 0.37 ng/mL (0.8-2.0)
[2021-03-29 06:45] LABS: Anion Gap 15 mmol/L (10-20); BUN (Urea Nitrogen) 75 mg/dL (9.8-20.1); Calc. Creatinine Clearance 66 mL/min (70-130); Calcium 9.8 mg/dL (7.8-10.44); Carbon Dioxide 23 mmol/L (22-29); Chloride 97 mmol/L (98-107); Glucose 106 mg/dL (70-105); Magnesium 2.1 mg/dL (1.6-2.6); Sodium 131 mmol/L (136-145)
[2021-03-29] MEDS: Potassium Chloride 20 MEQ in Lactated Ringer's 1,000 ML IV SCH ×2 (06:55→15:43)
[2021-03-29 09:28] LABS: Band 43 % (5-11); Eosinophils 1 % (0-10); Lymphocytes 17 % (21-51); MDiff Complete? YES; Monocytes 17 % (0-10); Neutrophil 22 % (42-75); Platelet Morphology Comment Appears Decreased; Polychromasia SLIGHT = 2-3 cells (100X) (0-2/hpf); Vacuoles SLIGHT
[2021-03-29] MEDS: Digoxin 0.25 MG TAB PER TUBE SCH (09:31)
[2021-03-29] MEDS: Metoprolol Tartrate 25 MG TAB PO SCH ×2 (09:37→21:24)
[2021-03-29] MEDS: Metoclopramide 10 MG/10 ML UDCUP PER TUBE SCH ×4 (09:38→21:37)
[2021-03-29] MEDS: Aspirin Chewable 81 MG TAB PER TUBE SCH (09:38)
[2021-03-29] MEDS ORDERED: Cefepime 2 GM in Sodium Chloride 0.9% 100 ML IVPB SCH (10:00)
[2021-03-29] MEDS ORDERED: Sodium Chloride 0.9% 1,000 ML IV SCH (14:15)
[2021-03-29] MEDS: CEFIDEROCOL IVPB SCH ×2 (14:30→21:52)
[2021-03-29] MEDS: SODIUM CHLORIDE 0.9% IVPB SCH ×2 (14:30→21:52)
[2021-03-29] MEDS: Multivitamins, Adult 10 ML, TRACE ELEMENT CONCENTRATE 1 ML in D15W-AA 5% with Lytes 2,0... IV SCH (14:30)
[2021-03-29] MEDS: Fat Emulsion 250 ML IVPB SCH (14:30)
[2021-03-29] MEDS: NS 0.9% w/ 20 MEQ KCL 1,000 ML/1,000 ML BAG IV SCH ×2 (15:42→22:12)
[2021-03-30] MEDS: NS 0.9% w/ 20 MEQ KCL 1,000 ML/1,000 ML BAG IV SCH ×3 (05:26→16:47)
[2021-03-30 05:49] LABS: Hemoglobin 9.6 g/dL (12.0-16.0); Mean Corpuscular HGB CONC 33.9 g/dL (32.0-36.0); Mean Corpuscular Volume 85.4 fL (78.0-98.0); Platelet Count 234 thou/uL (130-400); RBC Distribution Width 16.4 % (11.5-14.5); Red Blood Cell (RBC) Count 3.31 mill/uL (4.20-5.40); White Blood Cell (WBC) Count 19.2 thou/uL (4.8-10.8)
[2021-03-30 05:51] LABS: Anion Gap 15 mmol/L (10-20); BUN (Urea Nitrogen) 105 mg/dL (9.8-20.1); Calc. Creatinine Clearance 49 mL/min (70-130); Calcium 9.1 mg/dL (7.8-10.44); Carbon Dioxide 20 mmol/L (22-29); Chloride 100 mmol/L (98-107); Glucose 111 mg/dL (70-105); Potassium 4.6 mmol/L (3.5-5.1); Sodium 130 mmol/L (136-145)
[2021-03-30 06:11] LABS: Band 48 % (5-11); Large Platelets SLIGHT; Lymphocytes 25 % (21-51); MDiff Complete? YES; Metamyelocyte 2 % (0-0); Monocytes 4 % (0-10); Myelocyte 1 % (0-0); Neutrophil 20 % (42-75); Platelet Morphology Comment Appears Adequate; Polychromasia SLIGHT = 2-3 cells (100X) (0-2/hpf)
[2021-03-30] MEDS ORDERED: Sodium Chloride 0.9% 1,000 ML IV SCH (07:00)
[2021-03-30] MEDS: Albumin 25% 25 GM/100 ML BOT IVPB SCH ×3 (08:31→21:28)
[2021-03-30] MEDS: Aspirin Chewable 81 MG TAB PER TUBE SCH (08:49)
[2021-03-30] MEDS: Metoclopramide 10 MG/10 ML UDCUP PER TUBE SCH ×4 (08:49→21:28)
[2021-03-30] MEDS: Digoxin 0.25 MG TAB PER TUBE SCH (09:12)
[2021-03-30] MEDS: Metoprolol Tartrate 25 MG TAB PO SCH ×2 (09:12→21:28)
[2021-03-30] MEDS: CEFIDEROCOL IVPB SCH ×3 (09:38→21:34)
[2021-03-30] MEDS: SODIUM CHLORIDE 0.9% IVPB SCH ×3 (09:38→21:34)
[2021-03-30] MEDS: Multivitamins, Adult 10 ML, TRACE ELEMENT CONCENTRATE 1 ML in D15W-AA 5% with Lytes 2,0... IV SCH (14:19)
[2021-03-31] MEDS: Albumin 25% 25 GM/100 ML BOT IVPB SCH (02:58)
[2021-03-31] MEDS: NS 0.9% w/ 20 MEQ KCL 1,000 ML/1,000 ML BAG IV SCH ×2 (04:50→07:21)
[2021-03-31] MEDS: SODIUM CHLORIDE 0.9% IVPB SCH ×2 (06:25→14:38)
[2021-03-31] MEDS: CEFIDEROCOL IVPB SCH ×2 (06:25→14:38)
[2021-03-31] MEDS: Metoprolol Tartrate 25 MG TAB PO SCH (09:23)
[2021-03-31] MEDS: Digoxin 0.25 MG TAB PER TUBE SCH (09:23)
[2021-03-31] MEDS: Metoclopramide 10 MG/10 ML UDCUP PER TUBE SCH ×2 (09:23→14:25)
[2021-03-31] MEDS: Aspirin Chewable 81 MG TAB PER TUBE SCH (09:24)
[2021-03-31 12:28] VITALS: BP 95/62; TEMP 97.8
[2021-03-31] MEDS: Fat Emulsion 250 ML IVPB SCH (14:37)
[2021-03-31] MEDS: Multivitamins, Adult 10 ML, TRACE ELEMENT CONCENTRATE 1 ML in D15W-AA 5% with Lytes 2,0... IV SCH (14:38)
[2021-04-01] MEDS ORDERED: Enoxaparin Sodium 40 MG/0.4 ML SYRINGE SC SCH (09:00)
== END 2021-03-31 15:30 | DRG 373 ==
LOC: SURG A 03-25 00:34 → OBSVTOIN 03-25 01:38
PROVIDERS: ADMIT Specialist; ATTEND Specialist
PROC: 0W9H30Z Drainage of Retroperitoneum with Drainage Device, Percutaneous Approach (ICD-10-PCS; principal; 2021-03-25)
PROC: 30233R1 Transfusion of Nonautologous Platelets into Peripheral Vein, Percutaneous Approach (ICD-10-PCS; 2021-03-25)
PROC: 3E0336Z Introduction of Nutritional Substance into Peripheral Vein, Percutaneous Approach (ICD-10-PCS; 2021-03-25)
PROC: 30233N1 Transfusion of Nonautologous Red Blood Cells into Peripheral Vein, Percutaneous Approach (ICD-10-PCS; 2021-03-28)
DX: K65.1 Peritoneal abscess (principal); Z20.822 Contact with and (suspected) exposure to COVID-19; E87.6 Hypokalemia; D69.59 Other secondary thrombocytopenia; J38.01 Paralysis of vocal cords and larynx, unilateral; K58.9 Irritable bowel syndrome, unspecified; J45.909 Unspecified asthma, uncomplicated; I10 Essential (primary) hypertension; T36.0X5A Adverse effect of penicillins, initial encounter; D64.9 Anemia, unspecified; R00.0 Tachycardia, unspecified; Z88.8 Allergy status to other drugs, medicaments and biological substances; Z79.899 Other long term (current) drug therapy
CPT/HCPCS: 36415; 36416; 36430; 49060; 74230; 77002; 80048; 80053; 80162; 83735; 84100; 85025; 85060; 85610; 85730; 86850; 86900; 86901; 87070; 87077; 87186; 87205; 89051; 93005; 93010; C1729; J0692; J0699; J1642; J2250; J3010; J3480; J3490; J7050; J7120; P9016; P9035; P9047; U0003; U0005